=== PATIENT | female | born 1955 | race Hispanic/Latino ===

== ENCOUNTER 2018-06-26 09:30 | Inpatient (IN) | payer OTHER ==
[~2018-06-26] VITALS: Ht 160 cm; Wt 71.5 kg
[2018-06-26] MEDS ORDERED: ONDANSETRON HCL INJ 2 MG/ML VIAL IV STA (10:13)
[2018-06-26] MEDS ORDERED: SODIUM CHLORIDE 0.9% 1000ML 1,000 ML IV SCH (10:15)
[2018-06-26] MEDS ORDERED: AMLODIPINE BESYL5 MG PO (10:18)
[2018-06-26] MEDS ORDERED: BASAGLAR INSULIN SQ (10:18)
[2018-06-26] MEDS ORDERED: COLESTIPOL HCL1 GM PO ×3 (10:18→14:56)
[2018-06-26] MEDS ORDERED: LOVASTATIN20 MG PO (10:18)
[2018-06-26] MEDS ORDERED: GLIMEPIRIDE2 MG PO (10:21)
[2018-06-26] MEDS ORDERED: LOSARTAN-HCTZ1 EAC1 PO (10:21)
[2018-06-26] MEDS ORDERED: METFORMIN HCL500 MG PO (10:21)
[2018-06-26] MEDS ORDERED: LISINOPRIL10 MG PO (10:21)
[2018-06-26] MEDS ORDERED: TENORMIN50 MG PO (10:21)
[2018-06-26] MEDS ORDERED: POTASSIUM CHLORIDE 20 MEQ TAB CR PO STA (11:22)
[2018-06-26] MEDS ORDERED: ASPIRIN 325 MG TAB PO ONE (11:30)
[2018-06-26] MEDS ORDERED: ASPIRIN 81 MG CHEW TAB PO ONE (13:15)
[2018-06-26] MEDS ORDERED: IOPAMIDOL 300MG/ML 100 ML INFUS..BTL IV ONE (13:15)
[2018-06-26] MEDS ORDERED: ONDANSETRON HCL INJ 2 MG/ML VIAL IV PRN (13:15)
[2018-06-26 14:00] VITALS: BP 151/61
[2018-06-26] MEDS: ASPIRIN 325 MG TAB EC PO SCH (14:13)
[2018-06-26 14:30] VITALS: BP 151/61
[2018-06-26 16:39] LABS: BASOPHILS # (AUTO) 0.1 (0.0-0.1); BASOPHILS % 0.5 % (0.0-1.0); EOSINOPHILS # (AUTO) 0.1 (0.0-0.4); EOSINOPHILS % 0.4 % (0.0-6.0); HEMATOCRIT 34.7 % (34.2-44.1); LYMPHOCYTES # (AUTO) 2.4 (1.0-3.2); LYMPHOCYTES % 15.1 % (18.0-39.1); MEAN CORPUSCULAR HEMOGLOBIN 27.5 pg (28-32); MEAN CORPUSCULAR HGB CONC 34.6 g/dL (31-35); MEAN CORPUSCULAR VOLUME 79.4 fL (81-99); MONOCYTES % 6.5 % (4.4-11.3); NEUTROPHILS # (AUTO) 12.3 (2.1-6.9); NEUTROPHILS % 77.1 % (38.7-80.0); PLATELET COUNT 418 x10e3/uL (140-360); RED BLOOD COUNT 4.37 x10e6/uL (3.6-5.1); RED CELL DISTRIBUTION WIDTH 15.6 % (11.7-14.4)
[2018-06-26 16:50] LABS: ALANINE AMINOTRANSFERASE 33 IU/L (0-55); ALKALINE PHOSPHATASE 50 IU/L (40-150); ANION GAP 14.4 mmol/L (8-16); BILIRUBIN,DIRECT 0.5 mg/dL (0.0-0.5); BLOOD UREA NITROGEN 14 mg/dL (7-26); BUN/CREATININE RATIO 17 (6-25); CALCIUM 9.4 mg/dL (8.4-10.2); CARBON DIOXIDE 23 mmol/L (22-29); CHLORIDE 98 mmol/L (98-107); CREATININE, SERUM 0.82 mg/dL (0.57-1.11); EST GLOMERULAR FILTRATION RATE > 60 ML/MIN (60-); POTASSIUM 3.4 mmol/L (3.5-5.1); SODIUM 132 mmol/L (136-145)
[2018-06-26 16:55] LABS: GLUCOSE 56 mg/dL (74-118)
[2018-06-26 20:00] VITALS: BP 162/79
[2018-06-26 20:53] VITALS: BP 162/79
[2018-06-26] MEDS: SODIUM CHLORIDE 0.9% 1000ML 1,000 ML IV SCH (20:54)
[2018-06-26] MEDS: COLESTIPOL HCL 1 G TAB PO SCH (20:54)
[2018-06-26] MEDS: ATENOLOL 50 MG TAB PO SCH (20:55)
[2018-06-27] VITALS (7 sets, daily range): BP systolic 139–154; BP diastolic 59–67
[2018-06-27 02:42] LABS: CREATINE KINASE MB 3.6 ng/mL (0-5.0)
[2018-06-27 06:14] LABS: CREATINE KINASE MB 3.3 ng/mL (0-5.0)
[2018-06-27] MEDS: LOVASTATIN 20 MG PO SCH (09:00)
[2018-06-27] MEDS ORDERED: NON-FORMULARY MEDICATION (Losartan/Hydrochlorothiazide (Losartan-Hctz 100-25 Mg Tab) 1 TAB PO SCH (09:00)
[2018-06-27] MEDS ORDERED: LISINOPRIL 20 MG TAB PO SCH (09:00)
[2018-06-27] MEDS ORDERED: AMLODIPINE BESYLATE 5 MG TAB PO SCH (09:00)
[2018-06-27] MEDS ORDERED: LISINOPRIL 10 MG TAB PO SCH (09:00)
[2018-06-27] MEDS: HYDROCHLOROTHIAZIDE 25 MG TAB PO SCH (09:30)
[2018-06-27] MEDS: LOSARTAN POTASSIUM 100 MG TAB PO SCH (09:30)
[2018-06-27] MEDS: COLESTIPOL HCL 1 G TAB PO SCH ×2 (09:30→21:11)
[2018-06-27 14:38] LABS: CHOL/HDL RATIO 3.3 (3.0-3.6)
[2018-06-27 14:58] LABS: THYROID STIMULATING HORMONE 0.846 uIU/mL (0.350-4.940)
[2018-06-27] MEDS: NIFEDIPINE CR 30 MG TAB PO SCH ×2 (15:39→21:12)
--- NOTE | 2018-06-27 16:01 | History and Physical ---
PRIMARY CARE PHYSICIAN: Dr. Garcia at [facility]. CHIEF COMPLAINT: Dizziness and racing heart. HISTORY OF PRESENT ILLNESS: This is a 63-year-old woman with a history of Crohn's disease and chronic diarrhea, now developing dizziness and racing heart with left arm tingling, prompting her to come to the hospital. Here she was found to have elevated troponin. She is admitted for further evaluation and management. PAST MEDICAL HISTORY: Hypertension, diabetes mellitus, hyperlipidemia, heart murmur, cigarette use and Crohn's disease. PAST SURGICAL HISTORY: None. ALLERGIES: PER THE ELECTRONIC MEDICAL RECORDS. FAMILY HISTORY/SOCIAL HISTORY: Patient is single. No alcohol or illicits. She was smoking 1 pack of cigarettes per day, now down to half a pack per day. MEDICATIONS: Per the electronic medical records. Medications reviewed. REVIEW OF SYSTEMS: Denies any dizziness, fever, chills, sweats, nausea, vomiting, diarrhea, leg pain, back pain, headache, blurred vision. VITAL SIGNS: Have been reviewed. PHYSICAL EXAMINATION GENERAL APPEARANCE: A tired-appearing woman resting in bed. HEENT: Anicteric. Pupils responsive to light. No oral lesions. CARDIOVASCULAR: Normal S1/S2. She has a 3/6 systolic murmur. LUNGS: Moderate breath sounds. ABDOMEN: Soft, nontender, nondistended. EXTREMITIES: No edema or calf tenderness. NEUROLOGICALLY: Alert and oriented x3. Moving all extremities. LABS: Reviewed. ASSESSMENT: She is a 63-year-old woman. 1. Elevated troponin. 1. Arm numbness. 2. Heart murmur. 3. Abnormal electrocardiogram with T-wave flattening and inversion in the precordial leads. 4. Dehydration. 5. Diarrhea. 6. Overweight state. 7. Diabetes mellitus type 2. 8. Hypertension. 9. Hyperlipidemia. 10. Crohn's disease. PLAN 1. Obtain 2-D echocardiogram. 2. Cardiology consultation. 3. Obtain TSH for tachycardia. 4. Obtain hemoglobin A1c and lipid panel. 5. Once cleared by Cardiology, patient can follow up with her GI doctor at [facility] for continuing management of her Crohn's disease. 6. Start prophylaxis with Pepcid and Lovenox. 7. Follow up cardiology recommendations. Job#: [id number] EV
[2018-06-27] MEDS ORDERED: CLOPIDOGREL BISULFATE 75 MG TAB PO ONE (16:30)
[2018-06-27] MEDS ORDERED: ENOXAPARIN SOD INJ 40 MG/0.4 ML SYR SC SCH (17:00)
[2018-06-27] MEDS: FAMOTIDINE 20 MG TAB PO SCH (17:26)
--- NOTE | 2018-06-27 20:44 | Consultation ---
DATE OF CONSULTATION: June 27, 2018 CARDIAC CONSULTATION REASON FOR THE CONSULTATION: Chest pressure, chest tightness, left arm pain, elevated troponin. HISTORY: This is a 63-year-old lady, hypertensive, diabetic, hypercholesterolemic, smoker. Patient for the last 2 to 3 months is having diarrhea. She had colonoscopy and workup and she was diagnosed with inflammatory bowel disease, Crohn or may be ulcerative colitis. She came today because she felt her heart racing and with that she had chest tightness and left arm pain. Initially, her troponin was elevated at 0.77, second troponin 0.456, third troponin of 0.394. The patient is admitted for further management. Her EKG showed nonspecific ST changes laterally and LVH. Currently, she is doing well. Patient does have easy fatigability, shortness of breath on exertion. She attributed all her symptoms to her GI problem for the last 2 to 3 months. She had colonoscopy and workup. There is no orthopnea, no paroxysmal nocturnal dyspnea, no syncope, no presyncope, no prior tachycardia or any other health problem, no recent trouble, no signs of deep venous thrombosis, and no hormone use. REVIEW OF SYSTEMS: Extensive to all systems, only pertinent positive and negative ones will be mentioned. CARDIAC: As per above. PULMONARY: No cough, no hemoptysis. GI: Chronic diarrhea. No hematemesis, no melena, but chronic diarrhea. : No hematuria, no dysuria. NEUROMUSCULAR: No aches, no pains. GENERAL: No fever, no chills. ENDOCRINE: Patient is diabetic. SOCIAL HISTORY: She is single. Unfortunately she smokes a pack a day. 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 HOME MEDICATIONS: Includes: 1. Amlodipine 5 mg a day. 2. Lovastatin 20 mg a day. 3. Colestipol 1 g 5 per day, 2 in the morning, 3 in the afternoon. 4. Losartan/hydrochlorothiazide 100 and 25 one tablet a day. 5. Atenolol 25 mg a day. 6. Metformin 1000 mg twice a day. 7. Glimepiride 1 mg a day. 8. Lisinopril 40 mg twice a day. ALLERGIES: ATORVASTATIN, PATIENT IS INTOLERANT TO ATORVASTATIN. PAST MEDICAL HISTORY: 1. Hypertension. 2. Diabetes mellitus. Of note, her diabetes is at least for 15 years. 3. Hyperlipidemia. 4. Smoker. 5. Diarrhea with diagnosis of inflammatory bowel disease, possible Crohn, possible ulcerative colitis. FAMILY HISTORY: Father was alcoholic, of alcohol complication at age 65. Mother in her 70s with kidney disease. She had diabetes mellitus for short period. Four brothers, all are diabetic, 2 of them already had PCI procedure in their 60s. Five sisters. No children. PHYSICAL EXAMINATION: VITAL SIGNS: Height of 5 feet 3 inches, weight of 154 pounds, blood pressure 150/70, heart rate of 70, respiratory rate of 18. HEENT: Pupils are equal and reactive. NECK: No elevation of jugular venous pulsation. No bruit. CHEST: Clear to auscultation and percussion. HEART: PMI, fifth left intercostal space. Normal first and second heart sounds. ABDOMEN: Soft with no organomegaly. No abdominal bruits. EXTREMITIES: No cyanosis. No clubbing. No edema. NEUROLOGIC: Nonfocal. LAB DATA: Sodium of 132, potassium 3.4, BUN of 14, creatinine of 0.8. White blood cell count of 15.9, hemoglobin of 12, hematocrit 35%, platelet count of 418,000. TSH of 0.85. Triglycerides of 118, cholesterol of 129, HDL of 39, LDL of 66. CK, CK-MB are normal. Troponin 0.77, 0.456, 0.394. EKG as described above. IMPRESSION: 1. Troponin leak in setting of palpitation, most likely probably supraventricular tachycardia secondary to hypokalemia and with that patient had troponin leak, which will indicate severe triple-vessel coronary artery disease in a patient who is diabetic for many years, heavy smoker for many years, and is hypertensive, hyperlipidemic. 2. Severe hypertension. 3. Diabetes mellitus. 4. Hypertension. 5. Hypercholesterolemia. PLAN: Patient's stool will be checked for blood. Patient will be loaded with Plavix. Patient already most likely failed her stress test because of the leak of troponin in the setting of short-lived probably arrhythmia with symptomatic pain in the arm and in the chest. Patient options are discussed. Patient to make a decision tomorrow. Definitely, will load her with Plavix. Will continue antiplatelet agent. Will continue diabetes medication. Will continue beta umesh. Will continue ARB. Patient on appropriate medical therapy, planned to be address her problem. Questions are answered. Job#: [id number]
[2018-06-27] MEDS: ATENOLOL 50 MG TAB PO SCH (21:12)
[2018-06-27] MEDS: SODIUM CHLORIDE 0.9% 1000ML 1,000 ML IV SCH (21:20)
[2018-06-28] VITALS (8 sets, daily range): BP systolic 111–140; BP diastolic 47–65
[2018-06-28] MEDS: SODIUM CHLORIDE 0.9% 1000ML 1,000 ML IV SCH (05:50)
[2018-06-28 05:58] LABS: BASOPHILS # (AUTO) 0.1 (0.0-0.1); BASOPHILS % 0.4 % (0.0-1.0); EOSINOPHILS # (AUTO) 0.2 (0.0-0.4); EOSINOPHILS % 1.5 % (0.0-6.0); HEMATOCRIT 32.3 % (34.2-44.1); HEMOGLOBIN 10.9 g/dL (12.0-16.0); LYMPHOCYTES # (AUTO) 2.5 (1.0-3.2); LYMPHOCYTES % 15.8 % (18.0-39.1); MEAN CORPUSCULAR HEMOGLOBIN 27.2 pg (28-32); MEAN CORPUSCULAR HGB CONC 33.7 g/dL (31-35); MEAN CORPUSCULAR VOLUME 80.5 fL (81-99); MONOCYTES # (AUTO) 1.2 (0.2-0.8); MONOCYTES % 7.7 % (4.4-11.3); NEUTROPHILS # (AUTO) 11.9 (2.1-6.9); NEUTROPHILS % 74.1 % (38.7-80.0); PLATELET COUNT 380 x10e3/uL (140-360); RED BLOOD COUNT 4.01 x10e6/uL (3.6-5.1); RED CELL DISTRIBUTION WIDTH 15.8 % (11.7-14.4)
[2018-06-28 06:17] LABS: ALANINE AMINOTRANSFERASE 22 IU/L (0-55); ALBUMIN 2.4 g/dL (3.5-5.0); ALBUMIN/GLOBULIN RATIO 0.7 (0.8-2.0); ALKALINE PHOSPHATASE 46 IU/L (40-150); BLOOD UREA NITROGEN 7 mg/dL (7-26); BUN/CREATININE RATIO 10 (6-25); CALCIUM 8.5 mg/dL (8.4-10.2); CARBON DIOXIDE 24 mmol/L (22-29); CHLORIDE 99 mmol/L (98-107); EST GLOMERULAR FILTRATION RATE > 60 ML/MIN (60-); GLUCOSE 87 mg/dL (74-118); SODIUM 133 mmol/L (136-145)
[2018-06-28] MEDS: LOVASTATIN 20 MG PO SCH (09:00)
[2018-06-28] MEDS: LOSARTAN POTASSIUM 100 MG TAB PO SCH (09:50)
[2018-06-28] MEDS: COLESTIPOL HCL 1 G TAB PO SCH ×2 (09:50→22:28)
[2018-06-28] MEDS: FAMOTIDINE 20 MG TAB PO SCH ×2 (09:50→17:28)
[2018-06-28] MEDS: HYDROCHLOROTHIAZIDE 25 MG TAB PO SCH (09:50)
[2018-06-28] MEDS: ASPIRIN 325 MG TAB EC PO SCH (09:50)
[2018-06-28] MEDS: NIFEDIPINE CR 30 MG TAB PO SCH (09:50)
[2018-06-28] MEDS ORDERED: POTASSIUM CHLORIDE 20MEQ/100ML 100 ML IV ONE (11:45)
[2018-06-28 12:17] LABS: FERRITIN 513.46 ng/mL (4.63-204.00)
--- NOTE | 2018-06-28 13:03 | Progress Note ---
DATE: June 28, 2018, Friday MEDICINE PROGRESS NOTE TIME OF SERVICE: 11:15 a.m. OVERNIGHT: No acute events. REVIEW OF SYSTEMS: Patient denies chest pain or shortness of breath. Patient reports intermittent nausea, diarrhea, abdominal pain and early satiety. Patient denies dizziness, fever, chills, sweats, leg pain, back pain, headache or blurry vision. OBJECTIVE VITAL SIGNS: T 97.5, P 66, respirations 18, BP is 111/52. SpO2 100% on room air. GENERAL APPEARANCE: This is a very tired-appearing middle-aged woman resting supine in bed. HEENT: Normocephalic, no sinus tenderness, PERRLA, oral mucosa dry and intact. Trachea midline without JVD. CARDIOVASCULAR: S1, S2 auscultated with a pansystolic 3/6 murmur. LUNGS: Moderate breath sounds in all novoa. ABDOMEN: Soft, slightly tender and not distended. EXTREMITIES: No edema or calf tenderness. NEUROLOGIC: No gross defects noted on examination. Moves all extremities. PSYCH: Flat affect. LABS: WBC is 16.06, H\T\H 10.9 and 32.3 respectively, platelets 180. C. diff noted negative. Stool occult blood positive. Sodium 133, potassium 3, chloride 99, CO2 ___99, gap 13, BUN 7, creatinine 0.7. MEDICATIONS 1. Procardia XL 60 mg p.o. q.12. 2. Pepcid 20 mg b.i.d. a.c. meals. 3. Hydrochlorothiazide 25 mg p.o. daily. 4. Losartan 100 mg p.o. daily. 5. Colestid 2 g a.c. breakfast daily. 6. Aspirin 325 q.a.m. 7. Atenolol 50 mg p.o. nightly. 8. Colestid 3 g nightly. 9. Lovenox 40 mg daily at 1700. 10. Normal saline at 60 mL an hour. 11. Home medications. 12. Zofran 4 mg p.r.n. q.4 h. nausea and vomiting. ASSESSMENT AND PLAN: This is a 63-year-old woman with 1. Elevated troponin/abnormal electrocardiogram with T-wave flattening and inversion in the precordial leads. A 2-D echo obtained. Cardiology is consulting, and patient verbalizes desire for left heart cath. 2. Dehydration. Continue IV fluids. 3. Diarrhea. Continue IV fluids and monitor electrolytes. Replace potassium this day. 4. Overweight state. Outpatient counseling. 5. Diabetes mellitus type 2. Hemoglobin A1c and lipid panel. Found the patient with a 5.6 A1c, 118 triglycerides and 129 cholesterol. 6. Hypertension. Controlled on current regimen. Continue to monitor. 7. Hyperlipidemia. Continue medications. 8. Crohn's disease. Patient reported colonoscopy approximately 6 weeks ago with negative findings. Possible followup with outpatient GI doctor at [facility] for management. However, patient with positive stool occult blood this day. Will obtain iron studies to determine best course of treatment prior to further GI evaluation today. 9. Prophylaxis. Pepcid and Lovenox. 10. Follow up a hemogram, iron studies, and cardiology interventions. Discussed with RN and patient, all questions answered. Dictated by: Alyssa Arana NP Job#: [id number] YANELY
[2018-06-28] MEDS: ATENOLOL 50 MG TAB PO SCH (21:25)
[2018-06-29] VITALS (7 sets, daily range): BP systolic 106–163; BP diastolic 50–69
[2018-06-29] MEDS: SODIUM CHLORIDE 0.9% 1000ML 1,000 ML IV SCH ×2 (02:49→15:40)
[2018-06-29 03:29] LABS: BILIRUBIN,URINE NEGATIVE (NEGATIVE); CLARITY,URINE CLEAR (CLEAR); COLOR,URINE YELLOW (YELLOW); KETONES,URINE TRACE (NEGATIVE); LEUKOCYTE ESTERASE ,URINE NEGATIVE (NEGATIVE); NITRITE,URINE NEGATIVE (NEGATIVE); PROTEIN,URINE DIPSTICK TRACE (NEGATIVE); URINE UROBILINOGEN 0.2 mg/dL (0.2 - 1)
[2018-06-29 03:42] LABS: RBC,URINE >50 /HPF (0-5)
[2018-06-29 03:43] LABS: BACTERIA,URINE FEW /HPF; EPITHELIAL CELLS,URINE FEW /LPF; TRANSITIONAL EPI CELLS,URINE FEW
[2018-06-29] MEDS: DICYCLOMINE HCL 20 MG TAB PO SCH ×3 (05:08→21:21)
[2018-06-29 06:01] LABS: BASOPHILS # (AUTO) 0.1 (0.0-0.1); BASOPHILS % 0.5 % (0.0-1.0); EOSINOPHILS # (AUTO) 0.3 (0.0-0.4); EOSINOPHILS % 1.8 % (0.0-6.0); HEMATOCRIT 31.3 % (34.2-44.1); HEMOGLOBIN 10.7 g/dL (12.0-16.0); LYMPHOCYTES # (AUTO) 1.8 (1.0-3.2); LYMPHOCYTES % 11.5 % (18.0-39.1); MEAN CORPUSCULAR HEMOGLOBIN 27.2 pg (28-32); MEAN CORPUSCULAR HGB CONC 34.2 g/dL (31-35); MEAN CORPUSCULAR VOLUME 79.6 fL (81-99); MONOCYTES # (AUTO) 1.2 (0.2-0.8); MONOCYTES % 7.6 % (4.4-11.3); NEUTROPHILS # (AUTO) 11.8 (2.1-6.9); NEUTROPHILS % 78.1 % (38.7-80.0); PLATELET COUNT 386 x10e3/uL (140-360); RED BLOOD COUNT 3.93 x10e6/uL (3.6-5.1); RED CELL DISTRIBUTION WIDTH 15.9 % (11.7-14.4)
[2018-06-29 06:17] LABS: ALANINE AMINOTRANSFERASE 22 IU/L (0-55); ALBUMIN 2.5 g/dL (3.5-5.0); ALBUMIN/GLOBULIN RATIO 0.7 (0.8-2.0); ALKALINE PHOSPHATASE 52 IU/L (40-150); ANION GAP 13.8 mmol/L (8-16); BLOOD UREA NITROGEN 6 mg/dL (7-26); BUN/CREATININE RATIO 10 (6-25); CALCIUM 8.4 mg/dL (8.4-10.2); CARBON DIOXIDE 21 mmol/L (22-29); CHLORIDE 101 mmol/L (98-107); CREATININE, SERUM 0.61 mg/dL (0.57-1.11); EST GLOMERULAR FILTRATION RATE > 60 ML/MIN (60-); GLUCOSE 101 mg/dL (74-118); SODIUM 133 mmol/L (136-145)
[2018-06-29 06:30] LABS: POTASSIUM 2.8 mmol/L (3.5-5.1)
--- NOTE | 2018-06-29 06:39 | Diagnostic Imaging Report ---
CHEST SINGLE (PORTABLE), Technique: CHEST SINGLE (PORTABLE) Comparison: None Clinical history: Leukocytosis DISCUSSION: Unremarkable portable appearance of the heart, mediastinum, lungs and pleural spaces. IMPRESSION: No acute abnormality Signed by: Dr Brisa Molina MD on 06/29/2018 6:36 AM
[2018-06-29] MEDS ORDERED: POTASSIUM CHLORIDE 20MEQ/100ML 100 ML IV ONE (07:00)
[2018-06-29] MEDS: FAMOTIDINE 20 MG TAB PO SCH ×2 (07:30→15:40)
[2018-06-29] MEDS ORDERED: POTASSIUM CHLORIDE 20 MEQ TAB CR PO ONE ×2 (07:30→09:10)
[2018-06-29] MEDS: COLESTIPOL HCL 1 G TAB PO SCH ×2 (07:30→21:00)
[2018-06-29] MEDS: ASPIRIN 325 MG TAB EC PO SCH (08:25)
[2018-06-29] MEDS: LOSARTAN POTASSIUM 100 MG TAB PO SCH (08:25)
[2018-06-29] MEDS: HYDROCHLOROTHIAZIDE 25 MG TAB PO SCH (08:26)
[2018-06-29] MEDS: LOVASTATIN 20 MG PO SCH (08:26)
[2018-06-29] MEDS: AMLODIPINE BESYLATE 5 MG TAB PO SCH (08:26)
[2018-06-29] MEDS ORDERED: POTASSIUM CHLORIDE 20MEQ/100ML 200 ML IV ONE (09:00)
[2018-06-29] MEDS ORDERED: HEPARIN SOD/SOD CHLORIDE 0 ML ONE (09:22)
[2018-06-29] MEDS ORDERED: SODIUM CHLORIDE 0.9% 1000ML 1,000 ML ONE (09:22)
[2018-06-29] MEDS ORDERED: LIDOCAINE HCL 2% LOCAL 20 ML VIAL ONE (09:22)
[2018-06-29] MEDS ORDERED: FENTANYL CITRATE/PF 100MCG/2 ML INJ ONE (09:22)
[2018-06-29] MEDS ORDERED: MIDAZOLAM HCL 2 MG/2 ML VIAL ONE (09:22)
[2018-06-29] MEDS ORDERED: IOPAMIDOL 370 MG/ML 200 ML INFUS..BTL INJ ONE (09:22)
[2018-06-29 11:49] LABS: C DIFFICILE TOXIN A&B AMP PROB NEGATIVE (NEGATIVE); WBC,FECAL (FECAL LACTOFERRIN) POSITIVE (NEGATIVE)
--- NOTE | 2018-06-29 14:13 | Progress Note ---
DATE: June 29, 2018 TIME: 1315. OVERNIGHT: No acute events. Patient with abrupt onset of hematuria this a.m. REVIEW OF SYSTEMS: The patient denies chest pain or shortness of breath. Continues with report of intermittent nausea and diarrhea with abdominal pain and early satiety. Patient denies dizziness, fever, chills, sweats, leg pain, back pain, otherwise headache or blurry vision. VITAL SIGNS: T 95.9, P 79, respiratory rate 18, BP 106/50 this a.m. prior to medications. SpO2 99% on room air. PHYSICAL EXAMINATION GENERAL APPEARANCE: This very tired appearing elderly female, lying supine in bed. HEENT: Normocephalic without sinus tenderness. PERRLA with moist and intact oral mucosa. Trachea midline without JVD. CV: S1, S2 auscultated with pansystolic 3/6 murmur. LUNGS: Moderate breath sounds in all novoa. ABDOMEN: Soft, slightly tender and not distended. EXTREMITIES: No edema or calf tenderness. NEUROLOGIC: No gross defects noted on examination. Moves all extremities. PSYCH: Flat affect. LABS: Na 133, K 2.8, Cl 101, CO2 21, gap 13, BUN 6, creatinine 0.61. WBC this a.m. 15.17. H and H stable at 10.7 and 31.3, platelet count remains elevated at 386. MEDICATIONS 1. KCl replacement this day. 2. NS at 60 mL per hour IV. 3. Colestid 3 grams at bedtime. 4. Atenolol 50 mg p.o. at bedtime. 5. Bentyl 20 mg p.o. q.8 hours. 6. Norvasc 5 mg p.o. daily. 7. Pepcid 20 mg b.i.d. a.c. 8. Hydrochlorothiazide 25 mg p.o. daily. 9. Losartan 100 mg p.o. daily. 10. Unidentified home medication once daily. 11. Colestid 2 grams a.c. breakfast. 12. Zofran p.r.n. ASSESSMENT AND PLAN: This is a 63-year-old woman with 1. Elevated troponin/abnormal electrocardiogram with T-wave flattening and inversion in the precordial leads. Two-dimensional echocardiogram obtained shortly after admission. Cardiology and diagnostic intervention this a.m. deferred due to abrupt onset of hematuria. 2. Dehydration. Continue intravenous fluids. 3. Diarrhea. Continue intravenous fluids. Monitor electrolytes. Potassium replaced this day. Follow up in the a.m. 4. Overweight. Stay in outpatient counseling. 5. Diabetes mellitus type 2. Hemoglobin and lipid panel reviewed previously. 6. Hypertension, controlled on current regimen. 7. Hyperlipidemia. Continue medications. 8. Crohn disease. Patient reported colonoscopy approximately 6 weeks ago with negative findings and possible followup with outpatient gastroenterology doctor at [facility] for management; however, patient with positive stool occult blood this day. Patient found with low iron, total iron-binding capacity, and elevated ferritin. Gastroenterology consult initiated overnight. Recommendations pending. Prophylaxis Pepcid and Lovenox. DISPOSITION: Left heart cath indefinitely deferred per cardiovascular services concerning abrupt onset of hematuria this day. Will follow up values in the morning and anticipate discharge with GI recommendations. Dictated by Alyssa Arana NP Job#: [id number] JUAN C
[2018-06-29] MEDS: ATENOLOL 50 MG TAB PO SCH (21:21)
[2018-06-30] VITALS (8 sets, daily range): BP systolic 130–173; BP diastolic 58–76
[2018-06-30 05:21] LABS: BASOPHILS # (AUTO) 0.1 (0.0-0.1); BASOPHILS % 0.5 % (0.0-1.0); EOSINOPHILS # (AUTO) 0.2 (0.0-0.4); EOSINOPHILS % 1.7 % (0.0-6.0); HEMATOCRIT 29.8 % (34.2-44.1); HEMOGLOBIN 10.2 g/dL (12.0-16.0); LYMPHOCYTES # (AUTO) 2.4 (1.0-3.2); LYMPHOCYTES % 18.3 % (18.0-39.1); MEAN CORPUSCULAR HEMOGLOBIN 27.3 pg (28-32); MEAN CORPUSCULAR HGB CONC 34.2 g/dL (31-35); MEAN CORPUSCULAR VOLUME 79.7 fL (81-99); MONOCYTES # (AUTO) 1.3 (0.2-0.8); MONOCYTES % 9.8 % (4.4-11.3); NEUTROPHILS # (AUTO) 9.2 (2.1-6.9); NEUTROPHILS % 69.1 % (38.7-80.0); PLATELET COUNT 376 x10e3/uL (140-360); RED BLOOD COUNT 3.74 x10e6/uL (3.6-5.1); RED CELL DISTRIBUTION WIDTH 16.2 % (11.7-14.4)
[2018-06-30] MEDS: DICYCLOMINE HCL 20 MG TAB PO SCH ×3 (05:32→22:21)
[2018-06-30 05:48] LABS: ALANINE AMINOTRANSFERASE 21 IU/L (0-55); ALBUMIN 2.5 g/dL (3.5-5.0); ALBUMIN/GLOBULIN RATIO 0.8 (0.8-2.0); ALKALINE PHOSPHATASE 56 IU/L (40-150); ANION GAP 13.3 mmol/L (8-16); BLOOD UREA NITROGEN 6 mg/dL (7-26); BUN/CREATININE RATIO 9 (6-25); CALCIUM 8.5 mg/dL (8.4-10.2); CARBON DIOXIDE 22 mmol/L (22-29); CHLORIDE 102 mmol/L (98-107); CREATININE, SERUM 0.68 mg/dL (0.57-1.11); EST GLOMERULAR FILTRATION RATE > 60 ML/MIN (60-); GLUCOSE 92 mg/dL (74-118); POTASSIUM 3.3 mmol/L (3.5-5.1); SODIUM 134 mmol/L (136-145)
[2018-06-30] MEDS: FAMOTIDINE 20 MG TAB PO SCH ×2 (07:30→16:48)
[2018-06-30] MEDS: COLESTIPOL HCL 1 G TAB PO SCH ×2 (07:30→22:22)
[2018-06-30] MEDS: LOSARTAN POTASSIUM 100 MG TAB PO SCH (07:43)
[2018-06-30] MEDS: AMLODIPINE BESYLATE 5 MG TAB PO SCH (07:43)
[2018-06-30] MEDS: SODIUM CHLORIDE 0.9% 1000ML 1,000 ML IV SCH (07:43)
[2018-06-30] MEDS: LOVASTATIN 20 MG PO SCH (07:43)
[2018-06-30] MEDS: HYDROCHLOROTHIAZIDE 25 MG TAB PO SCH (07:43)
--- NOTE | 2018-06-30 07:43 | Progress Note ---
DATE: June 30, 2018 TIME: 7:14 a.m. OVERNIGHT: Had rectal bleeding. REVIEW OF SYSTEMS: Denies any dizziness, chest pain, shortness of breath, fever, chills, sweats, nausea or vomiting. Now leg pain. VITAL SIGNS: Reviewed. PHYSICAL EXAMINATION GENERAL: A tired-appearing woman resting in bed. HEENT: Anicteric. CARDIOVASCULAR: Normal S1 and S2. LUNGS: Moderate breath sounds. ABDOMEN: Soft, nontender and nondistended. EXTREMITIES: No edema. SKIN: Dry. PSYCHIATRIC: Normal affect. LABS: Reviewed. MEDICATIONS: Reviewed. ASSESSMENT AND PLAN: A 63-year-old woman. 1. Elevated troponin. 2. Arm numbness. 3. Heart murmur. 4. Abnormal electrocardiogram with T-wave flattening and inversion in the precordial leads. 5. Dehydration. 6. Bloody diarrhea. 7. Overweight state. 8. Diabetes mellitus, type 2. 9. Hypertension. 10. Hyperlipidemia. 11. Acute Crohn's exacerbation. PLAN 1. Heart catheterization has been canceled. Will continue medical management. 2. Followup endoscopy today for rectal bleeding. 3. Start the patient on steroid therapy. 4. Hemoglobin A1c was 5.6, LDL 66, and triglycerides 180. 5. Replace potassium this morning. 6. Leukocytosis, mild. Will follow. May increase after being started on steroids. 7. C. difficile testing is negative. 8. Follow up S. cerevisiae testing. 9. Follow up immunology testing. 10. Follow up cultures. 11. Patient remains on beta umesh and calcium channel umesh, but aspirin has been discontinued. Job#: [id number]
[2018-06-30] MEDS: METHYLPREDNISOLONE SOD SUCC 40 MG/ML VIAL IV SCH ×2 (08:21→22:20)
[2018-06-30] MEDS ORDERED: PROPOFOL IV EMULSION 10 MG/ML 50 ML VIAL ONE (13:59)
[2018-06-30] MEDS ORDERED: HYOSCYAMINE SULFATE 0.5 MG/ML AMP ONE (13:59)
--- NOTE | 2018-06-30 14:39 | Operative Report ---
DATE OF PROCEDURE: June 30, 2018 REFERRING PHYSICIAN: Dr. Cassy Virk PROCEDURE PERFORMED: Esophagogastroduodenoscopy with biopsies. INDICATIONS FOR EGD: Upper abdominal pain, nausea. MEDICATION: Patient was done under MAC. Please see anesthesiologist's note. PROCEDURE: With the patient in the left lateral decubitus position, the flexible fiberoptic Olympus gastroscope was introduced into the esophagus under direct visualization without any difficulty. There was some patchy erythema noted in the distal esophagus. The scope was then advanced with ease into the stomach, and the mucosa overlying the body revealed some diffuse friability and some patchy nodularity. Multiple biopsies were obtained. There was a focal raised area in the proximal antrum along the greater curvature and that was biopsied. Also the antral mucosa was atrophic, and biopsies were obtained. Several large ulcers were noted up to 2 cm in size, antrum, and biopsies were obtained. The pylorus was of normal contour and shape. It was intubated with ease, and the scope was advanced all the way to the 2nd portion of the duodenum. The scope was then withdrawn slowly, and there were some scalloped folds noted in the proximal duodenum, and biopsies were obtained to rule out sprue. The mucosa overlying the duodenal bulb grossly appeared to be within normal limits. The scope was then withdrawn back into the stomach and retroflexed, and the cardia appeared to be within normal limits. Similar inflammatory findings were noted in the fundus. The scope was then straightened out. The stomach was decompressed. The scope was subsequently withdrawn. Patient tolerated the procedure well. IMPRESSION 1. Distal esophagitis. 2. Gastritis, body, biopsied. 3. Focal nodularity, proximal antrum greater curvature, biopsied. 4. Rule out atrophic gastritis, antrum. 5. Gastric ulcers up to 2 cm in size, biopsies obtained. 6. Rule out sprue. PLAN: Follow up histology. Continue current therapy. Add Carafate 1 gram p.o. a.c. t.i.d. and nightly. Patient will need a followup EGD if all biopsies are benign in 2 months to re-evaluate the stomach and obtain additional biopsies if necessary. Job#: [id number] cc:CASSY VIRK MD
[2018-06-30] MEDS ORDERED: MIDAZOLAM HCL 2 MG/2 ML VIAL ONE (15:53)
[2018-06-30] MEDS: SUCRALFATE 1 GM TAB PO SCH ×2 (16:48→22:20)
[2018-06-30] MEDS: ATENOLOL 50 MG TAB PO SCH (22:21)
[2018-06-30] MEDS ORDERED: PANTOPRAZOLE 40 MG 10ML VIAL IV STA (23:38)
[2018-07-01] MEDS: SODIUM CHLORIDE 0.9% 1000ML 1,000 ML IV SCH (00:30)
[2018-07-01 00:39] VITALS: BP 156/69
[2018-07-01] MEDS: DICYCLOMINE HCL 20 MG TAB PO SCH (05:29)
[2018-07-01 05:55] VITALS: BP 140/62
[2018-07-01 07:10] LABS: HEMATOCRIT 31.6 % (34.2-44.1); HEMOGLOBIN 10.7 g/dL (12.0-16.0)
[2018-07-01] MEDS ORDERED: PANTOPRAZOLE SO40 MG PO (07:19)
[2018-07-01] MEDS ORDERED: CARAFATE1 GM PO (07:19)
[2018-07-01] MEDS ORDERED: DICYCLOMINE HCL20 MG PO (07:19)
[2018-07-01] MEDS ORDERED: PREDNISONE20 MG PO (07:19)
--- NOTE | 2018-07-01 07:43 | Discharge Summary ---
PRINCIPAL DIAGNOSES 1. Distal esophagitis. 2. Gastritis. 3. Focal nodular proximal antrum of the greater curvature. 4. Possible atrophic gastritis of the antrum. 5. Gastric ulcers up to 2 cm in size. 6. Elevated troponins. 7. Heart murmur. 8. Abnormal electrocardiogram with T-wave flattening and inversion in the precordial leads. 9. Bloody diarrhea with acute Crohn exacerbation. 10. Diabetes mellitus, type 2. Hemoglobin A1c 5.6, LDL 66 and triglycerides 180. 11. Overweight state. 12. Dehydration. SECONDARY DIAGNOSIS: Crohn disease. CHIEF COMPLAINT: Dizziness and racing heart. HISTORY OF PRESENT ILLNESS: This is a 63-year-old woman with dizziness and racing heart. Refer to the H and P for further details. HOSPITAL COURSE: The patient was found to have elevated troponin. She had arm numbness. Heart catheterization was scheduled, but the patient had rectal bleeding. Therefore, this was held. The patient was on medical management. Aspirin and Plavix have not been utilized due to GI bleeding. The patient underwent endoscopy. EGD showed gastric ulcers and other findings as noted above. The patient on PPI b.i.d. and sucralfate. She is also on steroids for her Crohn exacerbation. The patient is doing better and has not had any bleeding in the last 24 hours. She can be discharged home as she is cleared by GI and surgery. DISCHARGE MEDICATIONS: Per electronic medical record and include pantoprazole 40 mg b.i.d., sucralfate 4 times a day and prednisone 20 mg b.i.d. CONDITION ON DISCHARGE: Stable and improved. DISCHARGE LOCATION: Home. FOLLOWUP 1. Primary care doctor in 1 week. 2. Follow up with GI specialist in 7-10 days. 3. Follow up with cardiology in 2 weeks. CASSY VIRK MD Job#: [id number] [place]
[2018-07-01] MEDS ORDERED: PANTOPRAZOLE 40 MG 10ML VIAL IV SCH (09:00)
[2018-07-01] MEDS ORDERED: IRON-VITAMIN-MINERAL CAPSULE PO SCH (09:00)
[2018-07-01 09:14] VITALS: BP 146/65
[2018-07-01 09:30] VITALS: BP 146/65
[2018-07-01] MEDS: COLESTIPOL HCL 1 G TAB PO SCH (09:55)
[2018-07-01] MEDS: SUCRALFATE 1 GM TAB PO SCH (09:55)
[2018-07-01] MEDS: FAMOTIDINE 20 MG TAB PO SCH (09:55)
[2018-07-01] MEDS: HYDROCHLOROTHIAZIDE 25 MG TAB PO SCH (09:55)
[2018-07-01] MEDS: METHYLPREDNISOLONE SOD SUCC 40 MG/ML VIAL IV SCH (09:55)
[2018-07-01] MEDS ORDERED: ATORVASTATIN 10 MG TAB PO SCH (21:00)
[2018-07-02] MEDS ORDERED: LOVASTATIN 20 MG PO SCH (09:00)
[2018-07-03 11:57] LABS: ENDOMYSIAL ANTIBODIES, IGA Negative
== END 2018-07-01 11:25 | disposition home or self-care (01) | DRG 387 ==
LOC: FSED 09:30 → ERHOLD 13:13 → MED/SURG2 14:07 → OBSVTOIN 06-29 13:17
PROVIDERS: ADMIT Internal Medicine; ATTEND Internal Medicine
PROC: 0DD78ZX Extraction of Stomach, Pylorus, Via Natural or Artificial Opening Endoscopic, Diagnostic (ICD-10-PCS; 2018-06-30)
PROC: 0DD68ZX Extraction of Stomach, Via Natural or Artificial Opening Endoscopic, Diagnostic (ICD-10-PCS; 2018-06-30)
PROC: 0DD98ZX Extraction of Duodenum, Via Natural or Artificial Opening Endoscopic, Diagnostic (ICD-10-PCS; principal; 2018-06-30 08:00)
DX: K50.911 Crohn's disease, unspecified, with rectal bleeding (principal); R79.89 Other specified abnormal findings of blood chemistry; R20.0 Anesthesia of skin; E66.3 Overweight; Z68.27 Body mass index [BMI] 27.0-27.9, adult; E86.0 Dehydration; E78.5 Hyperlipidemia, unspecified; R01.1 Cardiac murmur, unspecified; R19.7 Diarrhea, unspecified; F17.210 Nicotine dependence, cigarettes, uncomplicated; E87.6 Hypokalemia; K20.9 Esophagitis, unspecified; K29.40 Chronic atrophic gastritis without bleeding; K25.9 Gastric ulcer, unspecified as acute or chronic, without hemorrhage or perforation
CPT/HCPCS: 36415; 43239; 71045; 71046; 74177; 80048; 80053; 80061; 80076; 81001; 81003; 82270; 82550; 82553; 82607; 82728; 82784; 82948; 83036; 83516; 83540; 83630; 83993; 84132; 84443; 84466; 84484; 85014; 85018; 85025; 85651; 86039; 86140; 86256; 86671; 86677; 87045; 87177; 87493; 88305; 88312; 93005; 93306; 99284; G0378; J1650; J1980; J2001; J2250; J2405; J2920; J3480; J7030; Q9967

== ENCOUNTER → 2018-07-13 | Outpatient (CLI) | payer OTHER ==
[~2018-07-13] MED LIST: AMLODIPINE BESYL5 MG PO; BASAGLAR INSULIN SQ; CARAFATE1 GM PO; COLESTIPOL HCL1 GM PO; DICYCLOMINE HCL20 MG PO; GLIMEPIRIDE2 MG PO; LISINOPRIL10 MG PO; LOSARTAN-HCTZ1 EAC1 PO; LOVASTATIN20 MG PO; METFORMIN HCL500 MG PO; PANTOPRAZOLE SO40 MG PO; PREDNISONE20 MG PO; SINCALIDE 3 MCG/VIAL INJ ONE; TENORMIN50 MG PO
--- NOTE | 2018-07-13 13:06 | Diagnostic Imaging Report ---
EXAM: Right Upper Quadrant Ultrasound INDICATION: \S\UPPER ABDOMEN PAIN COMPARISON: None. TECHNIQUE: Transverse and longitudinal images of the right upper abdomen were obtained. FINDINGS: Liver: Size: 14 cm in the right midclavicular line, normal Appearance: Normal echogenicity, smooth contour Mass: No focal masses Gallbladder: Stones/Sludge: Sludge present. Wall: 0.2 cm Appearance: No pericholecystic fluid or hydrops. Sonographic Herrera's Sign: Negative Bile Ducts: Intrahepatic Ducts: No dilatation Extrahepatic Ducts: Common bile duct measures 0.3 cm, no dilatation Pancreas: Visualized pancreas is unremarkable. Right Kidney: Size: 11.4 cm Echogenicity: Normal Parenchymal thickness: Normal Collecting system: No hydronephrosis Stones: 0.7 cm midpole calculus. Cyst/Mass: None Vessels: Aorta: Not well visualized. Inferior Vena Cava: Visualized portions are normal Main Portal Vein: 1 cm, normal size with hepatopetal flow. Free Fluid: No ascites or pleural effusion IMPRESSION: Gallbladder sludge. No evidence of cholecystitis. Right renal subcentimeter nonobstructive calculus. Signed by: Dr. Wayne Ordaz MD on 07/13/2018 1:03 PM
--- NOTE | 2018-07-14 12:20 | Diagnostic Imaging Report ---
Hepatobiliary Scan with Gallbladder Ejection Fraction Clinical information: 63 F with upper abdominal pain Technique: Following intravenous administration of 6.5 millicuries of Tc-99m mebrofenin, dynamic images of the abdomen in the anterior projection were obtained through 60 minutes. Sincalide (CCK analog) 1.5 micrograms was administered intravenously over 30 minutes with additional imaging for determination of gallbladder ejection fraction. Discussion: Perfusion of the liver is normal. Extraction of tracer by the liver parenchyma is normal. Tracer appears promptly within the biliary tract. The gallbladder begins to fill at 18 minutes post injection of tracer and fills adequately. Tracer is seen in the small bowel by 36 minutes. There is no contractile response by the gallbladder to the pharmacologic dose of sincalide. No emptying of the gallbladder occurs during the 30 minute infusion. Impression: 1. Filling of the gallbladder excludes acute cystic duct obstruction/acute cholecystitis. 2. The gallbladder ejection fraction is undefined as there is no emptying of the gallbladder during the infusion of sincalide. This absence of a contractile response to sincalide supports the clinical diagnosis of chronic cholecystitis/gallbladder dyskinesia. Signed by: Dr. Niki Briones M.D. on 07/14/2018 12:16 PM
== END ==
LOC: US 11:09
PROVIDERS: ATTEND Internal Medicine Gastroenterology
DX: R10.10 Upper abdominal pain, unspecified (principal)
CPT/HCPCS: 76705; 78227; A9537; J2805

== ENCOUNTER 2018-09-15 20:49 | Inpatient (IN) | payer OTHER ==
[~2018-09-15] VITALS: Ht 160 cm; Wt 70.0 kg
[~2018-09-15 20:49] MED LIST changes: -SINCALIDE 3 MCG/VIAL INJ ONE
--- OUTSIDE RECORDS SUMMARY | 2018-09-15 20:52 | XMS REPORT | Clinical Summary ---
Author Author [facility] Address Unknown Phone Unavailable Care Team Providers Care Psychology Professor Name Role Phone PCP Unavailable Allergies Not on File Current Medications Not on file Active Problems Not on file Encounters Date Type Specialty Care Team Description 08/12/2018 Clinical Corporate Wellness Support after 09/14/2017 Immunizations Name Dates Previously Given Next Due FLUCELVAX QUAD PF (0.5mL 08/12/2018 syringe) Social History Tobacco Use Types Packs/Day Years Used Date Never Assessed Sex Assigned at Date Recorded Not on file Last Filed Vital Signs Not on file Plan of Treatment Health Maintenance Due Date Last Done Comments CERVICAL CANCER SCREENING 1978 BREAST CANCER SCREENING 2007 SHINGRIX VACCINE (#1) 2007 COLON CANCER SCREENING 05/15/2028 05/15/2018 ZOSTER VACCINE Completed 03/05/2017 INFLUENZA VACCINE Completed 08/12/2018, 09/11/2015 Results Not on fileafter 09/14/2017 Insurance Payer Benefit Subscriber ID Type Phone Address Plan / Group [facility]/PPO THCARE CHOICE/[place] + [place] [address]
--- OUTSIDE RECORDS SUMMARY | 2018-09-15 20:52 | XMS REPORT ---
Author Author [facility] Address Unknown Phone Unavailable Care Team Providers Care Diploma Dental Assistant Name Role Phone DENNIS OKEEFE Unavailable Unavailable CASSY VIRK Unavailable Unavailable Problems This patient has no known problems. Allergies, Adverse Reactions, Alerts This patient has no known allergies or adverse reactions. Medications This patient has no known medications. Results Test Description Test Time Test Comments Text Results Atomic Results Result Comments HEPTOBILIARY W PHARM 2018-07-14 12:13:00 [place] [address] Patient Name: DORIAN SCHREIBER MR #: [id number] : 1955 Age/Sex: 63/F Req #: [id number] Adm Physician: Ordered by: DENNIS OKEEFE MD Report #: [id number] Location: US Room/Bed: Procedure: [id number] NM/HEPTOBILIARY W PHARM Exam Date: 07/13/18 Exam Time: 1215 REPORT STATUS: Signed Hepatobiliary Scan with Gallbladder Ejection Fraction Clinical information: 63 F with upper abdominal pain Technique: Following intravenous administration of 6.5 millicuries of Tc-99m mebrofenin, dynamic images of the abdomen in the anterior projection were obtained through 60 minutes. Sincalide (CCK analog) 1.5 micrograms was administered intravenously over 30 minutes with additional imaging for determination of gallbladder ejection fraction. Discussion: Perfusion of the liver is normal. Extraction of tracer by the liver parenchyma is normal. Tracer appears promptly within the biliary tract. The gallbladder begins to fill at 18 minutes post injection of tracer and fills adequately. Tracer is seen in the small bowel by 36 minutes. There is no contractile response by the gallbladder to the pharmacologic dose of sincalide. No emptying of the gallbladder occurs during the 30 minute infusion. Impression: 1. Filling of the gallbladder excludes acute cystic duct obstruction/acute ch olecystitis. 2. The gallbladder ejection fraction is undefined as there is no emptying of the gallbladder during the infusion of sincalide. This absence of a contractile response to sincalide supports the clinical diagnosis of chronic cholecystitis/gallbladder dyskinesia. Signed by: Dr. Binu Briones M.D. on 07/14/2018 12:16 PM Dictated By: BINU BRIONES MD 1216 Transcribed By: JULIANE on 07/14/18 1216 COPY TO: DENNIS OKEEFE MD GALLBLADDER 2018-07-13 13:00:00 [place] [address] Patient Name: DORIAN SCHREIBER MR #: [id number] : 1955 Age/Sex: 63/F Req #: [id number] Adm Physician: Ordered by: DENNIS OKEEFE MD Report #: [id number] Location: Room/Bed: Procedure: [id number] US/US GALLBLADDER Exam Date: Exam Time: REPORT STATUS: Signed EXAM: Right Upper Quadrant Ultrasound INDICATION: COMPARISON: None. TECHNIQUE: Transverse and longitudinal images of the right upper abdomen were obtained. FINDINGS: Liver: Size: 14 cm in the right midclavicular line, normal Appearance: Normal echogenicity, smooth contour Mass: No focal masses Gallbladder: Stones/Sludge: Sludge present. Wall: 0.2 cm Appearance: No pericholecystic fluid or hydrops. Sonographic Herrera's Sign: Negative Bile Ducts: Intrahepatic Ducts: No dilatation Extrahepatic Ducts: Common bile duct measures 0.3 cm, no dilatation Pancreas: Visualized pancreas is unremarkable. Right Kidney: Size: 11.4 cm Echogenicity: Normal Parenchymal thickness: Normal Collecting system: No hydronephrosis Stones: 0.7 cm midpole calculus. Cyst/Mass: None Vessels: Aorta: Not well visualized. Inferior Vena Cava: Visualized portions are normal Main Portal Vein: 1 cm, normal size with hepatopetal flow. Free Fluid: No ascites or pleural effusion IMPRESSION: Gallbladder sludge. No evidence of cholecystitis. Right renal subcentimeter nonobstructive calculus. Signed by: Dr. Wayne Perez MD on 07/13/2018 1:03 PM Dictated By: WAYNE PEREZ MD 1303 Transcribed By: JULIANE on 07/13/18 1303 COPY TO: DENNIS OKEEFE MD CHEST SINGLE (PORTABLE) 2018-06-29 06:36:00 [place] [address] Patient Name: DORIAN SCHREIBER MR #: [id number] : 1955 Age/Sex: 63/F Req #: [id number] Adm Physician: CASSY VIRK MD Ordered by: DENNIS OKEEFE MD Report #: [id number] Location: MED/SURG2 Room/Bed: [facility] Procedure: [id number] DX/CHEST SINGLE (PORTABLE) Exam Date: 06/29/18 Exam Time: 0555 REPORT STATUS: Signed CHEST SINGLE (PORTABLE), Technique: CHEST SINGLE (PORTABLE) Comparison: None Clinical history: Leukocytosis DISCUSSION: Unremarkable portable appearance of the heart, mediastinum, lungs and pleural spaces. IMPRESSION: No acute abnormality Signed by: Dr Alfonso Molina MD on 06/29/2018 6:36 AM Dictated By: ALFONSO MOLINA MD 5 Transcribed By: JULIANE on 06/29/18635 COPY TO: DENNIS OKEEFE MD
[2018-09-15] MEDS ORDERED: SODIUM CHLORIDE 0.9% 1000ML 1,000 ML IV STA (21:09)
[2018-09-15] MEDS ORDERED: MORPHINE SULFATE 2 MG/ML SYR IV STA (21:09)
[2018-09-15] MEDS ORDERED: PANTOPRAZOLE 40 MG 10ML VIAL IV STA (21:09)
[2018-09-15] MEDS ORDERED: ONDANSETRON HCL INJ 2 MG/ML VIAL IV STA ×2 (21:09→23:37)
[2018-09-15 21:28] LABS: BASOPHILS # (AUTO) 0.1 (0.0-0.1); BASOPHILS % 0.9 % (0.0-1.0); EOSINOPHILS % 0.3 % (0.0-6.0); HEMATOCRIT 27.6 % (34.2-44.1); HEMOGLOBIN 9.2 g/dL (12.0-16.0); LYMPHOCYTES # (AUTO) 1.6 (1.0-3.2); LYMPHOCYTES % 10.9 % (18.0-39.1); MEAN CORPUSCULAR HEMOGLOBIN 26.7 pg (28-32); MEAN CORPUSCULAR HGB CONC 33.3 g/dL (31-35); MONOCYTES # (AUTO) 1.1 (0.2-0.8); MONOCYTES % 7.6 % (4.4-11.3); NEUTROPHILS # (AUTO) 11.9 (2.1-6.9); NEUTROPHILS % 79.9 % (38.7-80.0); PLATELET COUNT 435 x10e3/uL (140-360); RED BLOOD COUNT 3.45 x10e6/uL (3.6-5.1); RED CELL DISTRIBUTION WIDTH 17.7 % (11.7-14.4)
[2018-09-15 21:57] LABS: INR 1.16; PARTIAL THROMBOPLASTIN TIME 33.2 seconds (23.8-35.5); PROTHROMBIN TIME 15.8 seconds (11.9-14.5)
[2018-09-15 22:10] LABS: ALANINE AMINOTRANSFERASE 13 IU/L (0-55); ALBUMIN/GLOBULIN RATIO 0.8 (0.8-2.0); ALKALINE PHOSPHATASE 76 IU/L (40-150); ANION GAP 16.6 mmol/L (8-16); BLOOD UREA NITROGEN 12 mg/dL (7-26); BUN/CREATININE RATIO 14 (6-25); CALCIUM 8.9 mg/dL (8.4-10.2); CARBON DIOXIDE 23 mmol/L (22-29); CHLORIDE 95 mmol/L (98-107); CREATINE KINASE 32 IU/L (29-168); CREATININE, SERUM 0.87 mg/dL (0.57-1.11); EST GLOMERULAR FILTRATION RATE > 60 ML/MIN (60-); GLUCOSE 158 mg/dL (74-118); LIPASE 56 U/L (8-78); SODIUM 132 mmol/L (136-145)
[2018-09-15 22:12] LABS: POTASSIUM 2.6 mmol/L (3.5-5.1)
[2018-09-15 22:30] LABS: CLARITY,URINE HAZY (CLEAR); COLOR,URINE YELLOW (YELLOW); LEUKOCYTE ESTERASE ,URINE 1+ (NEGATIVE); NITRITE,URINE NEGATIVE (NEGATIVE); PROTEIN,URINE DIPSTICK TRACE (NEGATIVE)
[2018-09-15 22:31] LABS: BILIRUBIN,URINE NEGATIVE (NEGATIVE); KETONES,URINE TRACE (NEGATIVE); URINE UROBILINOGEN 0.2 mg/dL (0.2 - 1)
[2018-09-15 22:38] LABS: BACTERIA,URINE MODERATE /HPF; EPITHELIAL CELLS,URINE MODERATE /LPF
[2018-09-15 22:39] LABS: CALCIUM OXALATE CRYSTALS,UR FEW (FEW); MUCUS,URINE FEW (RARE)
[2018-09-15] MEDS ORDERED: HYDROMORPHONE 1MG/1ML INJ IV STA (23:37)
[2018-09-15] MEDS ORDERED: MAGNESIUM SULFATE 2GM/50ML 50 ML IV ONE (23:45)
[2018-09-15] MEDS ORDERED: KCL 20MEQ/.9 SOD CHL 1,000 ML IV ONE (23:45)
[2018-09-16] VITALS (44 sets, daily range): BP systolic 97–148; BP diastolic 35–70
--- NOTE | 2018-09-16 00:06 | Diagnostic Imaging Report ---
CHEST SINGLE (PORTABLE), 09/15/2018 9:09 PM Technique: CHEST SINGLE (PORTABLE) Comparison: 06/29/2018. Clinical history: Abdominal pain Findings: Stable appearance of the heart and mediastinal silhouette, lungs, and pleural spaces. Impression: 1. Lines/Tubes: None 2. No acute abnormality. Signed by: Dr Brisa Molina MD on 09/16/2018 12:02 AM
--- NOTE | 2018-09-16 00:16 | Diagnostic Imaging Report ---
EXAM: CT ABDOMEN/PELVIS W DATE: 09/15/2018 9:09 PM INDICATION: Right lower quadrant abdominal pain COMPARISON: None TECHNIQUE: The abdomen and pelvis were scanned using a multidetector helical scanner. Coronal and sagittal reformations were obtained. CT low dose techniques were utilized, as applicable. IV Contrast: 100 ml Isovue 300/370 FINDINGS: LOWER THORAX: No consolidations LIVER/BILIARY: Hepatic steatosis. No masses or ductal dilation. Portal venous gas. GALLBLADDER: No stones. Trace nonspecific pericholecystic fluid SPLEEN: Spleen is small and heterogeneous in appearance with peripheral areas of hyperenhancement or perfusional change. PANCREAS: Unremarkable ADRENALS: No nodules KIDNEYS: No suspicious renal masses. No hydronephrosis. GI TRACT: There is hypoenhancement of a long segment of distal small bowel in the right lower abdomen with pneumatosis and venous gas. VESSELS: Severe atherosclerotic changes throughout the aorta and branch vessels. Severe narrowing and/or occlusion of the celiac and SMA origins, but patent distally PERITONEUM/RETROPERITONEUM: No free air or fluid LYMPH NODES: No lymphadenopathy REPRODUCTIVE ORGANS/BLADDER: There is a 10 cm calcified dominant fibroid. Nonspecific 3.3 cm simple appearing left adnexal cyst. BONES: Degenerative changes, worse at L5-S1.. IMPRESSION: 1. Ischemic distal small bowel in the lower abdomen with hypoenhancement, pneumatosis, and portal venous gas. 2. Severe atherosclerotic changes with narrowing/occlusion of the celiac and SMA origins, but patent distally. Discussed with Physician: LEW ANDINO MD at 12:15 AM on 09/16/2018. Signed by: Dr Brisa Molina MD on 09/16/2018 12:22 AM
[2018-09-16] MEDS ORDERED: HYDROMORPHONE 2MG/ML 2 MG/ML ML ONE (00:31)
[2018-09-16] MEDS ORDERED: HYDROMORPHONE 1MG/1ML INJ IV STA (01:10)
[2018-09-16] MEDS ORDERED: ONDANSETRON HCL INJ 2 MG/ML VIAL IV PRN (01:30)
[2018-09-16] MEDS ORDERED: KCL 20MEQ/.9 SOD CHL 1,000 ML IV ONE ×3 (01:30→03:30)
[2018-09-16] MEDS ORDERED: HYDROMORPHONE 2MG/ML 2 MG/ML ML IV PRN (01:30)
[2018-09-16] MEDS ORDERED: IOPAMIDOL 370 MG/ML 200 ML INFUS..BTL INJ ONE (01:31)
[2018-09-16] MEDS ORDERED: SODIUM CHLORIDE 0.9% 50ML 50 ML ONE (01:31)
--- OUTSIDE RECORDS SUMMARY | 2018-09-16 01:35 | XMS REPORT | Clinical Summary ---
Author Author [facility] Address Unknown Phone Unavailable Care Team Providers Care Mail Courier Name Role Phone PCP Unavailable Allergies Not on File Current Medications Not on file Active Problems Not on file Encounters Date Type Specialty Care Team Description 08/12/2018 Clinical Corporate Wellness Support after 09/15/2017 Immunizations Name Dates Previously Given Next Due [...] Completed 08/12/2018, 09/11/2015 Results Not on fileafter 09/15/2017 Insurance Payer Benefit Subscriber ID Type Phone Address Plan / Group [facility] H[facility]/PPO THCARE CHOICE/[place] [address]
[2018-09-16] MEDS ORDERED: POTASSIUM CHLORIDE 20MEQ/100ML 100 ML ONE (02:24)
[2018-09-16] MEDS ORDERED: POTASSIUM CHLORIDE 20MEQ/100ML 100 ML IV ONE (02:30)
[2018-09-16] MEDS: PIPER-TAZ 3.375 GM 50 ML IV SCH ×5 (02:30→23:17)
[2018-09-16] MEDS: METRONIDAZOLE 500MG/NS 100ML 100 ML IV SCH ×5 (02:39→23:58)
--- OUTSIDE RECORDS SUMMARY | 2018-09-16 03:29 | XMS REPORT | Clinical Summary ---
Author Author [facility] Address Unknown Phone Unavailable Care Team Providers Care Sketcher Name Role Phone PCP Unavailable Allergies Not [...] Plan / Group [facility] H[facility]/PPO THCARE CHOICE/[place] [address]
[2018-09-16] MEDS ORDERED: MAGNESIUM SULFATE 2GM/50ML 50 ML IV ONE (04:00)
[2018-09-16] MEDS: SODIUM CHLORIDE 0.9% 1000ML 1,000 ML IV SCH ×3 (05:43→21:42)
[2018-09-16] MEDS: SODIUM CHLORIDE 0.9% 250ML IRRIG IR SCH ×5 (05:45→21:42)
[2018-09-16] MEDS ORDERED: ACETAMINOPHEN 1000 MG/100 ML IV PRN (05:45)
[2018-09-16] MEDS: PANTOPRAZOLE 40 MG 10ML VIAL IV SCH (05:45)
[2018-09-16] MEDS: INSULIN REGULAR, HUMAN 100 UNIT/1 ML 3ML VIAL SQ SCH ×3 (06:00→18:00)
[2018-09-16] MEDS ORDERED: MEPERIDINE HCL INJ 50 MG/ML INJ ONE (06:05)
--- NOTE | 2018-09-16 06:32 | Operative Report ---
DATE OF PROCEDURE: September 16, 2018 PREOPERATIVE DIAGNOSIS: Acute surgical abdomen, rule out ischemic bowel. POSTOPERATIVE DIAGNOSES 1. Acute surgical abdomen. 2. Ischemic terminal ileum and right colon. 3. Acalculous cholecystitis. OPERATIONS PERFORMED 1. Exploratory laparotomy. 2. Right colectomy with resection of terminal ileum. 3. Cholecystectomy. ANESTHESIA: General. COMPLICATIONS: None. ESTIMATED BLOOD LOSS: 50 mL. DESCRIPTION OF PROCEDURE: With the patient lying in bed in the supine position under good general endotracheal anesthesia, the abdomen was prepped with Betadine solution and draped in the usual manner. A lower midline incision was made. It was carried down through the subcutaneous tissue and through the midline fascia. The peritoneum was opened and the abdomen was entered. Upon entering the abdominal cavity, immediately a foul odor was encountered. Exploration revealed that about 3 feet of terminal ileum was dusky appearing and had some obvious color change with bruises in the serosa and some thickening of the bowel. Similarly, the cecum itself appeared to be also starting to have some of the same changes. The proximal bowel appeared to be normal. The small bowel was run and was found to be normal. The colon distal to the hepatic flexure also appeared to be normal. Examination of the upper abdomen revealed a tensely distended discolored gallbladder consistent with also acalculous cholecystitis. The patient had a history of having a nonfunctioning gallbladder now for a while. So, we decided that the bowel would need to be resected, as well as the gallbladder needed to be removed. We went proximally in the terminal ileum to where the bowel looked pretty much normal. It was then divided at this point with an application of the STU-75 stapler. Similarly, at the level of the midtransverse colon, the colon was divided with an application of a STU-75 stapler. The right colon was then mobilized off the lateral gutter without any difficulty and brought medially. The mesentery of the terminal ileum and colon was then divided with the In-Seal device and the specimen was sent for pathological examination. After this was done, the peritoneum overlying the neck of the gallbladder was then opened. The cystic duct was identified. A 2-0 silk tie was placed around the cystic duct and left in place. The cystic artery was identified, ligated with 2-0 silk and divided. The gallbladder was then sharply taken off of the liver bed using the cautery. There was a lot of thickening, fibrosis and inflammatory reaction of the liver bed consistent with a chronic cholecystitis problem. At the neck of the gallbladder, the cystic artery was then again identified. It had previously been tied and was then divided. The cystic duct was then ligated with 2-0 silk and divided. The gallbladder was sent for pathological examination. Perfect hemostasis of the liver bed was ascertained. The anastomosis was then performed by bringing the small bowel up to the midtransverse colon. Another application of the STU-75 stapler was used, and the remaining opening was closed with a TA-60 stapler. Gloves and instruments were changed. Anastomosis was then reinforced with 3-0 silk. The mesenteric rent was closed with a running suture of 2-0 Vicryl. The abdomen was then copiously irrigated and all the excess fluid was aspirated. Perfect hemostasis was ascertained. Of note, also is the fact that the patient has a very large fibroid that occupies most of the pelvis. The bowel was then inspected again and no other areas of suspicious ischemic were encountered. So, the abdomen was then closed in layers. The peritoneum was closed with a running suture of #1 Vicryl. The midline fascia was closed with a running suture of #1 Vicryl. The skin was closed with clips. A dressing was applied. The sponge, lap and needle count was correct. The patient tolerated the procedure well and returned to the recovery room in stable condition. Job#: [id number] CARLA
--- OUTSIDE RECORDS SUMMARY | 2018-09-16 07:23 | XMS REPORT | Clinical Summary ---
Author Author [facility] Address Unknown Phone Unavailable Care Team Providers Care Towing Pilot Name Role Phone PCP Unavailable Allergies Not [...] ID Type Phone Address Plan / Group [facility] H[facility]/PPO THCARE CHOICE[place] [address]
[2018-09-16 08:10] LABS: BASOPHILS # (AUTO) 0.1 (0.0-0.1); BASOPHILS % 0.3 % (0.0-1.0); HEMATOCRIT 26.8 % (34.2-44.1); LYMPHOCYTES # (AUTO) 0.8 (1.0-3.2); LYMPHOCYTES % 3.7 % (18.0-39.1); MEAN CORPUSCULAR HGB CONC 33.6 g/dL (31-35); MEAN CORPUSCULAR VOLUME 80.5 fL (81-99); MONOCYTES # (AUTO) 1.1 (0.2-0.8); MONOCYTES % 5.1 % (4.4-11.3); NEUTROPHILS # (AUTO) 18.8 (2.1-6.9); NEUTROPHILS % 90.4 % (38.7-80.0); PLATELET COUNT 416 x10e3/uL (140-360); RED BLOOD COUNT 3.33 x10e6/uL (3.6-5.1); RED CELL DISTRIBUTION WIDTH 17.6 % (11.7-14.4)
[2018-09-16 08:34] LABS: ALANINE AMINOTRANSFERASE 32 IU/L (0-55); ALBUMIN 2.2 g/dL (3.5-5.0); ALBUMIN/GLOBULIN RATIO 0.7 (0.8-2.0); ALKALINE PHOSPHATASE 59 IU/L (40-150); AMYLASE 25 U/L (25-125); ANION GAP 11.8 mmol/L (8-16); BLOOD UREA NITROGEN 8 mg/dL (7-26); BUN/CREATININE RATIO 13 (6-25); CARBON DIOXIDE 24 mmol/L (22-29); CHLORIDE 100 mmol/L (98-107); CREATININE, SERUM 0.64 mg/dL (0.57-1.11); EST GLOMERULAR FILTRATION RATE > 60 ML/MIN (60-); GLUCOSE 157 mg/dL (74-118); LIPASE 4 U/L (8-78); SODIUM 133 mmol/L (136-145)
[2018-09-16 08:35] LABS: POTASSIUM 2.8 mmol/L (3.5-5.1)
[2018-09-16 08:51] LABS: CREATINE KINASE MB 0.7 ng/mL (0-5.0)
[2018-09-16] MEDS ORDERED: METOPROLOL TARTRATE INJ 1 MG/ML VIAL IV SCH (09:00)
[2018-09-16] MEDS ORDERED: POTASSIUM CHLORIDE 20MEQ/100ML 400 ML IV ONE (09:30)
[2018-09-16] MEDS ORDERED: SODIUM CHLORIDE 0.9% 250ML 250 ML ONE (10:41)
[2018-09-16] MEDS: HYDROMORPHONE 2MG/ML 2 MG/ML ML IV PRN ×3 (10:50→21:24)
--- NOTE | 2018-09-16 14:13 | Consultation ---
DATE OF CONSULTATION: September 16, 2018 CARDIOLOGY CONSULTATION HISTORY: A 63-year-old lady who is diabetic, hypertensive, hyperlipidemic. Patient was at this institution in June 2018. At that time, patient had tachycardia, chest pain, and minimal leaks of cardiac enzymes. Because of her symptoms of angina and with her tachycardia and the leak of enzymes and her risk factors, plan was initially to proceed with cardiac catheterization to evaluate this problem. However, patient given 300 mg of Plavix, and she had major hematuria. Her Plavix was stopped at the same time during that stay, she had EGD done by Dr. Santana Levine, which showed severe large gastric ulcer. The patient treated for her ulcer. She continued on medical therapy. The patient supposed to follow up with Dr. Levine shortly to have repeat EGD for followup on her very large gastric ulcer. However, for the last 2 to 3 days, she is having diffuse abdominal pain. 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 CT scan showed evidence of ischemic colitis. Patient rushed to surgery, had partial resection of the small bowel and cholecystectomy. Patient in intensive care unit. Cardiac consultation is obtained because of her cardiac history. Patient's symptoms prior to the admission were mainly of GI origin with acute abdomen, nausea, and very severe abdominal pain. Of note, her CT scan showed severe atherosclerosis of her celiac and superior mesenteric artery. Her hematuria seems to be resolved. Prior to this illness, she was having moderate shortness of breath on exertion and chest tightness. There were no orthopnea, no paroxysmal nocturnal dyspnea. Interestingly, patient has history of weight loss for almost 70 pounds in the last few months. She does have chronic diarrhea. She was diagnosed of possibility of Crohn's disease or irritable bowel syndrome. Regarding her diabetes mellitus, hypertension, hypercholesterolemia, patient is on appropriate therapy. CURRENT MEDICATIONS 1. Amlodipine 5 mg a day. 2. Lovastatin 20 mg a day. 3. Losartan/hydrochlorothiazide 100/25 one tablet a day. 4. Atenolol 25 mg twice a day. 5. Colestipol 1 g 2 tablets daily. 6. Glimepiride 1 mg daily. 7. Dicyclomine 2 capsules t.i.d. 8. Protonix 40 mg a day. 9. Carafate 1 g daily. 10. Pepcid. 11. Probiotic. ALLERGIES: LIPITOR CAUSING IN THE PAST ELEVATED LIVER ENZYMES. PAST MEDICAL HISTORY 1. Hypertension. 2. Diabetes mellitus. 3. Hyperlipidemia. 4. History of proteinuria. 5. Major gastric ulcer. 6. Possible Crohn's disease. 7. Gross hematuria. SOCIAL HISTORY: She is single. She is an ex-smoker. She is not a social alcohol drinker. 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 FAMILY HISTORY: Father at age 55 with complication of alcoholism. Mother in her 70s with kidney and liver disease as she was diabetic. Nine siblings, few are diabetic. No children. REVIEW OF SYSTEMS GENERAL: Fever, chills. HEENT: Unremarkable. CARDIAC: As per above. PULMONARY: As per above. GI: As per acute illness, basically presentation was acute abdomen. Prior to that, patient having abdominal pain and diarrhea. : No frequency. MUSCULOSKELETAL: No back pain. SKIN: Occasional rashes. NEUROLOGICAL: No seizure activity or weakness. PHYSICAL EXAMINATION VITALS: Height of 5 feet 3 inches, weight of 136 pounds, blood pressure 130/70, heart rate of 80, respiratory rate of 18. HEENT: Pupils are reactive. NECK: No elevation of jugular venous pulsation. CHEST: Clear to auscultation and percussion. HEART: Holosystolic murmur noted. ABDOMEN: There is binder in place. Drainage is in place. EXTREMITIES: No cyanosis. No clubbing. No edema. NEUROLOGIC: Nonfocal. OTHER FINDINGS: NG tube suction. IMPRESSION 1. Acute abdomen, status post surgery. 2. History of coronary artery disease. 3. Hypertension. 4. Diabetes mellitus with complications. 5. Mild aortic stenosis. PLAN: Cardiac wagner, my recommendation will be supportive. Antibiotics coverage. IV fluids. Beta blockers, and we will adjust medication as treatment needed. We will follow patient's progression with you and would like to thank you for your kind referral. Job#: [id number] LPA
[2018-09-16] MEDS ORDERED: FENTANYL CITRATE/PF 100MCG/2 ML INJ ONE (15:49)
[2018-09-16] MEDS ORDERED: MIDAZOLAM HCL 2 MG/2 ML VIAL ONE (15:49)
[2018-09-16] MEDS: MAGNESIUM SULFATE 2GM/50ML 50 ML IV PRN (16:36)
[2018-09-16 17:01] LABS: CREATINE KINASE MB 0.7 ng/mL (0-5.0)
[2018-09-16] MEDS ORDERED: SUCCINYLCHOLINE 200 MG/10 ML SYR ONE (18:11)
[2018-09-16] MEDS ORDERED: ROCURONIUM BROMIDE 10 MG/ML 5ML VIAL ONE (18:11)
[2018-09-16] MEDS ORDERED: GLYCOPYRROLATE INJ 1MG/ 5 ML SYR ONE (18:11)
[2018-09-16] MEDS ORDERED: NEOSTIGMINE 5 MG/5ML SYR ONE (18:11)
[2018-09-16] MEDS ORDERED: PROPOFOL IV EMULSION 10 MG/ML 20 ML VIAL ONE (18:11)
[2018-09-16] MEDS ORDERED: SEVOFLURANE INHAL SOLN 250 ML PEN BTL ONE (18:11)
[2018-09-16] MEDS ORDERED: LIDOCAINE HCL 2% LOCAL INJ 5 ML SDV VIAL INJ ONE (18:11)
[2018-09-16] MEDS: METOPROLOL TARTRATE INJ 1 MG/ML VIAL IV SCH (21:43)
[2018-09-17] VITALS (20 sets, daily range): BP systolic 103–143; BP diastolic 34–63
[2018-09-17] MEDS: SODIUM CHLORIDE 0.9% 250ML IRRIG IR SCH ×6 (02:12→22:40)
[2018-09-17] MEDS: HYDROMORPHONE 2MG/ML 2 MG/ML ML IV PRN ×5 (02:12→19:50)
--- NOTE | 2018-09-17 03:28 | Progress Note ---
DATE: Physician cancelled. Job#: [id number] GE
--- NOTE | 2018-09-17 03:46 | History and Physical ---
PRIMARY CARE DOCTOR: Dr. Garcia from [facility]. This is coverage for Dr. Frank Lynch. HISTORY: Ms. Church is a pleasant 63-year-old female with abdominal pain. She is having a lot of nausea. The patient came for CT of chest emergently and saw severe atherosclerosis of celiac and superior mesenteric artery. The patient has been having chronic weight loss of almost 70 pounds in the last few months, and she has had chronic diarrhea. She was diagnosed with Crohn versus irritable bowel syndrome by her GI doctor, Santana Levine. Given the acute findings which are suggestive largely of ischemic colitis, the patient had emergency surgery. She had partial resection of small bowel and cholecystectomy. Currently, the patient is on 2 L per minute of oxygen and spontaneously breathing. NG tube in place and on intermittent/continuous wall suction. PAST MEDICAL HISTORY: Hypertension, diabetes, hyperlipidemia, peptic ulcer disease, Crohn disease versus irritable bowel syndrome. MEDICATIONS: List reviewed per electronic record. Currently, on Zosyn and Flagyl antibiotics. ALLERGIES: ATORVASTATIN ALLERGY. SOCIAL HISTORY: Tobacco at age 18 to 63, one pack per day. No alcohol. No drugs. FAMILY HISTORY: Noncontributory. REVIEW OF SYSTEMS: Difficult to get as she has throat pain and NG tube in place. PHYSICAL EXAMINATION VITALS: Currently afebrile. Vital signs noted. Stable per electronic record. GENERAL: In no acute distress. Alert and slightly tired in bed. HEENT: Normocephalic and atraumatic. NECK: Supple. Throat midline. LUNGS: Bilateral air entry. Clear. CARDIOVASCULAR: S1 and S2. No murmurs, rubs or gallops. ABDOMEN: Soft and nontender. EXTREMITIES: No clubbing. No cyanosis. There is no edema. INTEGUMENT: No rash. No purpura. LABS: Potassium 2.8, bicarbonate 24, BUN 8, creatinine 0.6. White count 21, hematocrit 27 and platelets 416,000. INR 1.2. IMPRESSION AND PLAN 1. Ischemic colitis. 2. Postoperative state: Status post partial small-bowel resection and cholecystectomy. 3. Peripheral vascular disease, including atherosclerosis of celiac and superior mesenteric artery per computerized tomography. 4. Chronic obstructive pulmonary disease: Seems very likely. 5. Hypertension. 6. Diabetes. 7. Hyperlipidemia. 8. History of peptic ulcer disease. 9. Crohn disease versus irritable bowel disease. 10. Active smoker. 11. Hypokalemia and hyponatremia. Give aggressive potassium and magnesium. Recheck blood work in the morning. The patient will continue on supplemental oxygen. She is on NG tube suctioning per surgery. Smoking cessation is highly recommended. For now, continue other supportive treatment. The patient can get vitamins 1 dose given her significant weight loss recently. Thank you very much, Dr. Garcia, for allowing me the chance to participate in the care of Mrs. Church. Do not hesitate to contact me if I can help in any way. Job#: [id number] CARLA
[2018-09-17 05:02] LABS: ALANINE AMINOTRANSFERASE 121 IU/L (0-55); ALBUMIN 1.9 g/dL (3.5-5.0); ALBUMIN/GLOBULIN RATIO 0.6 (0.8-2.0); ALKALINE PHOSPHATASE 67 IU/L (40-150); BLOOD UREA NITROGEN 9 mg/dL (7-26); BUN/CREATININE RATIO 13 (6-25); CALCIUM 8.1 mg/dL (8.4-10.2); CARBON DIOXIDE 25 mmol/L (22-29); CHLORIDE 105 mmol/L (98-107); CREATININE, SERUM 0.69 mg/dL (0.57-1.11); EST GLOMERULAR FILTRATION RATE > 60 ML/MIN (60-); GLUCOSE 84 mg/dL (74-118); SODIUM 134 mmol/L (136-145)
[2018-09-17 05:03] LABS: PHOSPHORUS 2.9 MG/DL (2.3-4.7)
[2018-09-17] MEDS: PIPER-TAZ 3.375 GM 50 ML IV SCH ×3 (05:10→19:20)
[2018-09-17] MEDS: PANTOPRAZOLE 40 MG 10ML VIAL IV SCH (05:10)
[2018-09-17] MEDS: INSULIN REGULAR, HUMAN 100 UNIT/1 ML 3ML VIAL SQ SCH ×4 (06:00→18:00)
[2018-09-17] MEDS: SODIUM CHLORIDE 0.9% 1000ML 1,000 ML IV SCH ×3 (06:00→14:10)
[2018-09-17] MEDS: METRONIDAZOLE 500MG/NS 100ML 100 ML IV SCH ×3 (06:30→18:30)
[2018-09-17 06:58] LABS: BASOPHILS # (AUTO) 0.1 (0.0-0.1); BASOPHILS % 0.9 % (0.0-1.0); EOSINOPHILS % 0.3 % (0.0-6.0); HEMATOCRIT 24.8 % (34.2-44.1); LYMPHOCYTES # (AUTO) 1.7 (1.0-3.2); MEAN CORPUSCULAR HEMOGLOBIN 27.1 pg (28-32); MEAN CORPUSCULAR HGB CONC 32.3 g/dL (31-35); MEAN CORPUSCULAR VOLUME 84.1 fL (81-99); MONOCYTES # (AUTO) 1.5 (0.2-0.8); MONOCYTES % 10.1 % (4.4-11.3); NEUTROPHILS # (AUTO) 11.7 (2.1-6.9); NEUTROPHILS % 77.1 % (38.7-80.0); PLATELET COUNT 362 x10e3/uL (140-360); RED BLOOD COUNT 2.95 x10e6/uL (3.6-5.1); RED CELL DISTRIBUTION WIDTH 18.2 % (11.7-14.4)
[2018-09-17] MEDS ORDERED: THIAMINE HCL INJ 100 MG in SODIUM CHLORIDE 0.9% 50ML 50 ML IV ONE (09:00)
[2018-09-17] MEDS: METOPROLOL TARTRATE INJ 1 MG/ML VIAL IV SCH ×2 (09:06→22:00)
[2018-09-17] MEDS: BISACODYL 10 MG SUPP PR SCH (22:00)
--- NOTE | 2018-09-17 22:33 | Diagnostic Imaging Report ---
ABDOMEN-1VIEW (KUB) Clinical history: Verifying G-tube placement Technique: AP view abdomen Comparison: CT from 09/15/2018 Findings: Hemidiaphragms are partially excluded. Overlying skin madalyn related to recent surgery with presumed postsurgical pneumoperitoneum poorly assessed on supine view. Paucity of bowel gas without evidence of obstruction. Large calcified pelvic fibroid. Impression: NG tube tip overlies the gastric antrum. Signed by: Dr Brisa Molina MD on 09/17/2018 10:30 PM
[2018-09-18] VITALS (7 sets, daily range): BP systolic 104–169; BP diastolic 50–75
[2018-09-18] MEDS: PIPER-TAZ 3.375 GM 50 ML IV SCH ×4 (01:00→18:44)
[2018-09-18] MEDS: SODIUM CHLORIDE 0.9% 250ML IRRIG IR SCH ×5 (01:49→17:45)
[2018-09-18] MEDS: HYDROMORPHONE 2MG/ML 2 MG/ML ML IV PRN ×2 (03:01→20:41)
--- NOTE | 2018-09-18 03:10 | Progress Note ---
DATE: September 17, 2018 INTERNAL MEDICINE PROGRESS NOTE Coverage for Dr. Lynch. SUBJECTIVE: Ms. Church was seen and examined at bedside. She continues to have NG tube in place on continuous low suction. She is sitting up today. Normal saline at 125 mL per hour. Arellano in place with good urine output. REVIEW OF SYSTEMS: No headaches, no nosebleeds. OBJECTIVE: VITAL SIGNS: Afebrile, vital signs noted per electronic record. GENERAL: Looks pale, but no acute distress. HEENT: Normocephalic, atraumatic. NECK: Supple. Throat midline. LUNGS: Bilateral air entry, decreased breath sounds, rare rhonchi. CARDIOVASCULAR: S1, S2. No murmurs, rubs, or gallops. ABDOMEN: Soft, nontender. EXTREMITIES: No clubbing, no cyanosis, there is no edema. INTEGUMENT: No rash or purpura. LABS: 4.0 potassium, 9 BUN, 0.7 creatinine. 15 white count, 25 hematocrit, 362,000 platelets. IMPRESSIONS AND PLAN: 1. Postoperative state, status post partial small-bowel resection and cholecystectomy. 2. Ischemic colitis on admission. 3. Peripheral vascular disease including celiac and superior mesenteric artery atherosclerotic disease. 4. Chronic obstructive pulmonary disease likely, without active flare. 5. Hypertension. 6. Diabetes. 7. Hyperlipidemia. 8. Crohn's disease versus irritable bowel disease. 9. Active smoker. Nasogastric tube to remain in place at this time. Continue n.p.o. state. Continue intravenous fluids and continue to mobilize her as possible. Follow up closely. Job#: [id number]
[2018-09-18] MEDS: METRONIDAZOLE 500MG/NS 100ML 100 ML IV SCH ×4 (05:30→20:40)
[2018-09-18 05:49] LABS: BASOPHILS # (AUTO) 0.1 (0.0-0.1); BASOPHILS % 0.8 % (0.0-1.0); EOSINOPHILS % 0.2 % (0.0-6.0); HEMOGLOBIN 7.2 g/dL (12.0-16.0); LYMPHOCYTES # (AUTO) 1.4 (1.0-3.2); LYMPHOCYTES % 9.6 % (18.0-39.1); MEAN CORPUSCULAR HEMOGLOBIN 27.4 pg (28-32); MEAN CORPUSCULAR HGB CONC 32.3 g/dL (31-35); MEAN CORPUSCULAR VOLUME 84.8 fL (81-99); MONOCYTES # (AUTO) 1.8 (0.2-0.8); MONOCYTES % 12.3 % (4.4-11.3); NEUTROPHILS # (AUTO) 11.1 (2.1-6.9); NEUTROPHILS % 76.5 % (38.7-80.0); PLATELET COUNT 331 x10e3/uL (140-360); RED BLOOD COUNT 2.63 x10e6/uL (3.6-5.1); RED CELL DISTRIBUTION WIDTH 18.5 % (11.7-14.4)
[2018-09-18] MEDS: PANTOPRAZOLE 40 MG 10ML VIAL IV SCH (05:51)
[2018-09-18 05:56] LABS: HEMATOCRIT 22.3 % (34.2-44.1)
[2018-09-18] MEDS: INSULIN REGULAR, HUMAN 100 UNIT/1 ML 3ML VIAL SQ SCH ×4 (06:00→18:00)
[2018-09-18 06:30] LABS: ALANINE AMINOTRANSFERASE 116 IU/L (0-55); ALBUMIN 1.8 g/dL (3.5-5.0); ALBUMIN/GLOBULIN RATIO 0.5 (0.8-2.0); ALKALINE PHOSPHATASE 65 IU/L (40-150); ANION GAP 11.6 mmol/L (8-16); BLOOD UREA NITROGEN 8 mg/dL (7-26); BUN/CREATININE RATIO 12 (6-25); CALCIUM 8.1 mg/dL (8.4-10.2); CARBON DIOXIDE 22 mmol/L (22-29); CHLORIDE 113 mmol/L (98-107); CREATININE, SERUM 0.67 mg/dL (0.57-1.11); EST GLOMERULAR FILTRATION RATE > 60 ML/MIN (60-); GLUCOSE 67 mg/dL (74-118); POTASSIUM 3.6 mmol/L (3.5-5.1); SODIUM 143 mmol/L (136-145)
[2018-09-18] MEDS ORDERED: DEXTROSE 50% SYRINGE 50 ML IV PRN (07:00)
[2018-09-18] MEDS: BISACODYL 10 MG SUPP PR SCH (08:00)
[2018-09-18 09:08] LABS: LYMPHOCYTES % (MANUAL) 3 % (19-48); MONOCYTES % (MANUAL) 8 % (3.4-9.0); NEUTROPHILS % (MANUAL) 88 % (40-74)
[2018-09-18 09:09] LABS: ANISOCYTOSIS SLIGHT; HYPOCHROMASIA MODERATE; PLATELET ESTIMATE ADEQUATE; RBC MORPHOLOGY COMMENT NORMAL
[2018-09-18 09:10] LABS: PLATELET MORPHOLOGY COMMENT FEW LARGE
[2018-09-18] MEDS: SODIUM CHLORIDE 0.9% 1000ML 1,000 ML IV SCH (10:30)
[2018-09-18] MEDS: METOPROLOL TARTRATE INJ 1 MG/ML VIAL IV SCH ×2 (10:50→22:03)
[2018-09-18] MEDS ORDERED: SODIUM CHLORIDE 0.9% 250ML 250 ML ONE (15:16)
[2018-09-18] MEDS ORDERED: SODIUM CHLORIDE 0.9% 250ML 250 ML IV PRN (16:15)
[2018-09-18] MEDS: FUROSEMIDE INJ 10 MG/ML 2 ML VIAL IV PRN (18:30)
[2018-09-18] MEDS: ONDANSETRON HCL INJ 2 MG/ML VIAL IV PRN (20:41)
[2018-09-19] VITALS (8 sets, daily range): BP systolic 103–190; BP diastolic 49–76
[2018-09-19] MEDS: PIPER-TAZ 3.375 GM 50 ML IV SCH ×4 (00:25→18:00)
[2018-09-19] MEDS: METRONIDAZOLE 500MG/NS 100ML 100 ML IV SCH ×4 (01:51→17:30)
[2018-09-19] MEDS: FUROSEMIDE INJ 10 MG/ML 2 ML VIAL IV PRN (02:16)
[2018-09-19] MEDS: HYDROMORPHONE 2MG/ML 2 MG/ML ML IV PRN ×3 (03:49→18:45)
--- NOTE | 2018-09-19 04:16 | Progress Note ---
DATE: September 18, 2018 INTERNAL MEDICINE PROGRESS NOTE Coverage for Dr. Frank Lynch. SUBJECTIVE: Ms. Church was seen and examined at bedside. No nausea and no vomiting today. No flatus, however. She did however record a bowel movement. She was able to walk today. NG tube in place. REVIEW OF SYSTEMS: No bleeding and no headaches. OBJECTIVE VITAL SIGNS: Afebrile, vital signs noted per electronic record. GENERAL: In no acute distress, alert and calm. HEENT: Normocephalic, atraumatic. NECK: Supple. Throat midline. LUNGS: Bilateral air entry, mildly decreased breath sounds, clear. CARDIOVASCULAR: S1 and S2. No murmurs, rubs, or gallops. ABDOMEN: Soft and nontender. EXTREMITIES: No clubbing and no cyanosis. There is no edema. INTEGUMENT: No rash and no purpura. LABS: Potassium 3.6 and 0.7 creatinine. White count 15 and 22 hematocrit. IMPRESSION AND PLAN 1. Ischemic colitis, emergent. 2. Postoperative state, status post partial small bowel resection and cholecystectomy. 3. Peripheral vascular disease, celiac/superior mesenteric arteries per CT scan. 4. Chronic obstructive pulmonary disease . 5. History of Crohn's versus irritable bowel syndrome. 6. Active smoker. 7. Anemia. NG tube. Continue to give ice chips for comfort. Decide on diet by tomorrow noting the bowel movement. NG tube will be planned and give the packed red blood cells transfusions. Repeat labs tomorrow. Continue to ambulate the patient. Job#: [id number] CINDY
[2018-09-19 05:40] LABS: BASOPHILS # (AUTO) 0.1 (0.0-0.1); BASOPHILS % 0.6 % (0.0-1.0); EOSINOPHILS % 0.3 % (0.0-6.0); HEMATOCRIT 29.2 % (34.2-44.1); HEMOGLOBIN 9.5 g/dL (12.0-16.0); LYMPHOCYTES # (AUTO) 1.4 (1.0-3.2); LYMPHOCYTES % 9.4 % (18.0-39.1); MEAN CORPUSCULAR HEMOGLOBIN 27.5 pg (28-32); MEAN CORPUSCULAR HGB CONC 32.5 g/dL (31-35); MEAN CORPUSCULAR VOLUME 84.6 fL (81-99); MONOCYTES # (AUTO) 1.6 (0.2-0.8); MONOCYTES % 10.7 % (4.4-11.3); NEUTROPHILS # (AUTO) 11.5 (2.1-6.9); NEUTROPHILS % 78.3 % (38.7-80.0); PLATELET COUNT 352 x10e3/uL (140-360); RED BLOOD COUNT 3.45 x10e6/uL (3.6-5.1); RED CELL DISTRIBUTION WIDTH 17.3 % (11.7-14.4)
[2018-09-19] MEDS: INSULIN REGULAR, HUMAN 100 UNIT/1 ML 3ML VIAL SQ SCH ×4 (06:00→18:00)
[2018-09-19 06:15] LABS: BLOOD UREA NITROGEN 7 mg/dL (7-26); BUN/CREATININE RATIO 10 (6-25); CALCIUM 8.7 mg/dL (8.4-10.2); CARBON DIOXIDE 20 mmol/L (22-29); CHLORIDE 109 mmol/L (98-107); EST GLOMERULAR FILTRATION RATE > 60 ML/MIN (60-); MAGNESIUM 1.2 MG/DL (1.3-2.1); SODIUM 145 mmol/L (136-145)
[2018-09-19] MEDS: PANTOPRAZOLE 40 MG 10ML VIAL IV SCH (06:16)
[2018-09-19 06:25] LABS: GLUCOSE 58 mg/dL (74-118)
[2018-09-19 06:54] LABS: LYMPHOCYTES % (MANUAL) 9 % (19-48); MONOCYTES % (MANUAL) 8 % (3.4-9.0); NEUTROPHILS % (MANUAL) 83 % (40-74); PLATELET ESTIMATE ADEQUATE; PLATELET MORPHOLOGY COMMENT NORMAL; RBC MORPHOLOGY COMMENT NORMAL
[2018-09-19] MEDS: DEXTROSE 5%/0.9% SOD CHL 1,000 ML IV SCH ×2 (07:30→21:14)
[2018-09-19] MEDS: ONDANSETRON HCL INJ 2 MG/ML VIAL IV PRN (10:04)
[2018-09-19] MEDS: METOPROLOL TARTRATE INJ 1 MG/ML VIAL IV SCH ×2 (10:04→21:14)
--- NOTE | 2018-09-19 13:33 | Progress Note ---
DATE: September 19, 2018 SUBJECTIVE: The patient was able to ambulate today. She is able to pass small amounts of air. She has not had any vomiting. She still has some abdominal pain that is relieved with pain medication. OBJECTIVE VITAL SIGNS: Stable. HEENT: Shows no facial swelling or erythema. The nasal mucosa is normal. The oropharynx is normal. LYMPHATIC: Shows no submandibular, cervical, or supraclavicular adenopathy. CARDIAC: Reveals a regular rate and rhythm with a normal S1 and S2. There are no murmurs or rubs. LUNGS: Auscultation of the lungs shows no clear breath sounds bilaterally. There is no wheezing. ABDOMEN: Soft. There is bandage. There is no rebound or guarding. EXTREMITIES: There is no leg edema. There are SCDs in place. IMPRESSION 1. Ischemic colitis, requiring partial colectomy. 2. History of Crohn disease. 3. Chronic obstructive pulmonary disease of unclear severity. 4. Anemia. 5. Hypomagnesemia. PLAN 1. Replace magnesium. 2. Continue ambulation. 3. Pain control. 4. Dressing changes as per surgery. 5. Discuss disposition with general surgery. Job#: [id number] LPA
[2018-09-19] MEDS: HYDROCODONE/APAP 7.5MG-325MG 1 EA TAB PO PRN (17:40)
[2018-09-19] MEDS: BISACODYL 10 MG SUPP PR SCH (21:14)
[2018-09-20] VITALS (7 sets, daily range): BP systolic 135–182; BP diastolic 60–80
[2018-09-20] MEDS: PIPER-TAZ 3.375 GM 50 ML IV SCH ×3 (00:07→12:00)
[2018-09-20] MEDS: METRONIDAZOLE 500MG/NS 100ML 100 ML IV SCH ×4 (00:43→17:49)
[2018-09-20] MEDS: PANTOPRAZOLE 40 MG 10ML VIAL IV SCH (05:57)
[2018-09-20] MEDS: HYDROCODONE/APAP 7.5MG-325MG 1 EA TAB PO PRN ×3 (05:57→17:52)
[2018-09-20 06:27] LABS: BASOPHILS # (AUTO) 0.1 (0.0-0.1); EOSINOPHILS # (AUTO) 0.6 (0.0-0.4); EOSINOPHILS % 4.9 % (0.0-6.0); HEMATOCRIT 30.6 % (34.2-44.1); LYMPHOCYTES # (AUTO) 1.9 (1.0-3.2); LYMPHOCYTES % 16.7 % (18.0-39.1); MEAN CORPUSCULAR HEMOGLOBIN 27.5 pg (28-32); MEAN CORPUSCULAR HGB CONC 32.7 g/dL (31-35); MEAN CORPUSCULAR VOLUME 84.1 fL (81-99); MONOCYTES # (AUTO) 1.3 (0.2-0.8); MONOCYTES % 11.6 % (4.4-11.3); NEUTROPHILS # (AUTO) 7.5 (2.1-6.9); NEUTROPHILS % 65.3 % (38.7-80.0); PLATELET COUNT 371 x10e3/uL (140-360); RED BLOOD COUNT 3.64 x10e6/uL (3.6-5.1); RED CELL DISTRIBUTION WIDTH 17.5 % (11.7-14.4)
[2018-09-20 06:47] LABS: ALANINE AMINOTRANSFERASE 57 IU/L (0-55); ALBUMIN/GLOBULIN RATIO 0.6 (0.8-2.0); ALKALINE PHOSPHATASE 69 IU/L (40-150); ANION GAP 11.5 mmol/L (8-16); BLOOD UREA NITROGEN < 5 mg/dL (7-26); CALCIUM 8.4 mg/dL (8.4-10.2); CARBON DIOXIDE 25 mmol/L (22-29); CHLORIDE 111 mmol/L (98-107); CREATININE, SERUM 0.68 mg/dL (0.57-1.11); EST GLOMERULAR FILTRATION RATE > 60 ML/MIN (60-); GLUCOSE 128 mg/dL (74-118); SODIUM 145 mmol/L (136-145)
[2018-09-20 06:49] LABS: BUN/CREATININE RATIO 7 (6-25); POTASSIUM 2.5 mmol/L (3.5-5.1)
[2018-09-20] MEDS: POTASSIUM CHLORIDE 20MEQ/100ML 200 ML IV PRN ×2 (07:03→09:00)
[2018-09-20] MEDS: BISACODYL 10 MG SUPP PR SCH (08:00)
[2018-09-20] MEDS: METOPROLOL TARTRATE INJ 1 MG/ML VIAL IV SCH (09:08)
[2018-09-20] MEDS: INSULIN REGULAR, HUMAN 100 UNIT/1 ML 3ML VIAL SQ SCH ×4 (11:30→21:00)
[2018-09-20] MEDS ORDERED: MAGNESIUM SULFATE 2GM/50ML 50 ML IV ONE (12:30)
[2018-09-20] MEDS: DEXTROSE 5%/0.9% SOD CHL 1,000 ML IV SCH ×2 (13:52→21:30)
[2018-09-20] MEDS: POTASSIUM CHLORIDE 20MEQ/100ML 200 ML IV SCH ×2 (15:00→17:13)
[2018-09-20] MEDS: HYDROMORPHONE 2MG/ML 2 MG/ML ML IV PRN (20:11)
[2018-09-21] VITALS (8 sets, daily range): BP systolic 126–171; BP diastolic 60–74
[2018-09-21] MEDS: METRONIDAZOLE 500MG/NS 100ML 100 ML IV SCH ×4 (00:04→17:40)
[2018-09-21] MEDS: HYDROCODONE/APAP 7.5MG-325MG 1 EA TAB PO PRN ×3 (05:25→17:40)
[2018-09-21 05:35] LABS: BASOPHILS # (AUTO) 0.1 (0.0-0.1); BASOPHILS % 0.9 % (0.0-1.0); EOSINOPHILS # (AUTO) 0.7 (0.0-0.4); EOSINOPHILS % 5.5 % (0.0-6.0); HEMATOCRIT 29.8 % (34.2-44.1); HEMOGLOBIN 10.1 g/dL (12.0-16.0); LYMPHOCYTES # (AUTO) 2.9 (1.0-3.2); MEAN CORPUSCULAR HEMOGLOBIN 27.9 pg (28-32); MEAN CORPUSCULAR HGB CONC 33.9 g/dL (31-35); MEAN CORPUSCULAR VOLUME 82.3 fL (81-99); MONOCYTES # (AUTO) 1.2 (0.2-0.8); MONOCYTES % 9.9 % (4.4-11.3); NEUTROPHILS # (AUTO) 6.8 (2.1-6.9); NEUTROPHILS % 58.3 % (38.7-80.0); PLATELET COUNT 392 x10e3/uL (140-360); RED BLOOD COUNT 3.62 x10e6/uL (3.6-5.1); RED CELL DISTRIBUTION WIDTH 17.4 % (11.7-14.4)
[2018-09-21 05:51] LABS: ALANINE AMINOTRANSFERASE 40 IU/L (0-55); ALBUMIN 1.9 g/dL (3.5-5.0); ALBUMIN/GLOBULIN RATIO 0.6 (0.8-2.0); ALKALINE PHOSPHATASE 59 IU/L (40-150); ANION GAP 7.8 mmol/L (8-16); BLOOD UREA NITROGEN < 5 mg/dL (7-26); CARBON DIOXIDE 23 mmol/L (22-29); CHLORIDE 111 mmol/L (98-107); CREATININE, SERUM 0.53 mg/dL (0.57-1.11); EST GLOMERULAR FILTRATION RATE > 60 ML/MIN (60-); GLUCOSE 105 mg/dL (74-118); MAGNESIUM 1.2 MG/DL (1.3-2.1); SODIUM 139 mmol/L (136-145)
[2018-09-21 05:55] LABS: BUN/CREATININE RATIO 9 (6-25); POTASSIUM 2.8 mmol/L (3.5-5.1)
[2018-09-21] MEDS: PANTOPRAZOLE 40 MG 10ML VIAL IV SCH (06:02)
[2018-09-21] MEDS: POTASSIUM CHLORIDE 20MEQ/100ML 200 ML IV PRN (06:37)
[2018-09-21] MEDS: INSULIN REGULAR, HUMAN 100 UNIT/1 ML 3ML VIAL SQ SCH ×4 (07:30→21:00)
[2018-09-21] MEDS: MAGNESIUM SULFATE 2GM/50ML 50 ML IV PRN (08:25)
[2018-09-21] MEDS ORDERED: MAGNESIUM SULFATE 2GM/50ML 50 ML IV ONE (09:00)
[2018-09-21] MEDS: DEXTROSE 5%/0.9% SOD CHL 1,000 ML IV SCH (09:30)
[2018-09-21] MEDS ORDERED: DIPHENOXYLATE/ATROPINE TAB PO NR (11:15)
[2018-09-21] MEDS: POTASSIUM CHLORIDE 20MEQ/100ML 100 ML IV SCH ×3 (12:08→15:03)
[2018-09-22 00:06] VITALS: BP 129/61
[2018-09-22] MEDS: METRONIDAZOLE 500MG/NS 100ML 100 ML IV SCH ×3 (00:29→12:19)
[2018-09-22] MEDS: HYDROCODONE/APAP 7.5MG-325MG 1 EA TAB PO PRN (00:42)
[2018-09-22 05:28] VITALS: BP 124/59
[2018-09-22 06:13] LABS: BASOPHILS # (AUTO) 0.1 (0.0-0.1); EOSINOPHILS # (AUTO) 0.7 (0.0-0.4); EOSINOPHILS % 6.1 % (0.0-6.0); HEMATOCRIT 30.4 % (34.2-44.1); HEMOGLOBIN 10.1 g/dL (12.0-16.0); LYMPHOCYTES # (AUTO) 2.3 (1.0-3.2); LYMPHOCYTES % 20.5 % (18.0-39.1); MEAN CORPUSCULAR HEMOGLOBIN 27.8 pg (28-32); MEAN CORPUSCULAR HGB CONC 33.2 g/dL (31-35); MEAN CORPUSCULAR VOLUME 83.7 fL (81-99); MONOCYTES # (AUTO) 1.1 (0.2-0.8); MONOCYTES % 9.5 % (4.4-11.3); NEUTROPHILS % 62.4 % (38.7-80.0); PLATELET COUNT 379 x10e3/uL (140-360); RED BLOOD COUNT 3.63 x10e6/uL (3.6-5.1); RED CELL DISTRIBUTION WIDTH 17.5 % (11.7-14.4)
[2018-09-22] MEDS: PANTOPRAZOLE 40 MG 10ML VIAL IV SCH (06:17)
[2018-09-22 06:36] LABS: ALANINE AMINOTRANSFERASE 25 IU/L (0-55); ALBUMIN 1.8 g/dL (3.5-5.0); ALBUMIN/GLOBULIN RATIO 0.6 (0.8-2.0); ALKALINE PHOSPHATASE 49 IU/L (40-150); ANION GAP 11.2 mmol/L (8-16); CALCIUM 7.8 mg/dL (8.4-10.2); CARBON DIOXIDE 23 mmol/L (22-29); CHLORIDE 108 mmol/L (98-107); CREATININE, SERUM 0.54 mg/dL (0.57-1.11); EST GLOMERULAR FILTRATION RATE > 60 ML/MIN (60-); GLUCOSE 117 mg/dL (74-118); MAGNESIUM 1.5 MG/DL (1.3-2.1); POTASSIUM 3.2 mmol/L (3.5-5.1); SODIUM 139 mmol/L (136-145)
[2018-09-22 06:40] LABS: BLOOD UREA NITROGEN < 2 mg/dL (7-26); BUN/CREATININE RATIO 4 (6-25)
[2018-09-22] MEDS: INSULIN REGULAR, HUMAN 100 UNIT/1 ML 3ML VIAL SQ SCH ×2 (07:30→11:30)
[2018-09-22 08:19] VITALS: BP 129/60
[2018-09-22] MEDS ORDERED: POTASSIUM CHLORIDE 20 MEQ TAB CR PO STA (10:17)
[2018-09-22] MEDS ORDERED: MAGNESIUM SULFATE 2GM/50ML 50 ML IV ONE (10:30)
[2018-09-22 12:33] VITALS: BP 156/70
--- NOTE | 2018-09-22 12:47 | Discharge Summary ---
PRIMARY CARE DOCTOR: Dr. Garcia with [facility] FINAL DIAGNOSIS: Ischemic colitis with bowel. SECONDARY DIAGNOSES 1. Acalculous cholecystitis. 2. Peripheral vascular disease. 3. Hypertension. 4. Diabetes. 5. Dyslipidemia. 6. Peptic ulcer disease. 7. Possible Crohn's disease. CONSULTANTS 1. Dr. Seven Walton, surgery. 2. Dr. Baeza, cardiology. PROCEDURES/STUDIES PERFORMED 1. CT abdomen and pelvis, which showed ischemic distal small bowel with pneumatosis and portal vein gas. Also, narrowing/occlusion of the celiac and SMA origins but patent distally. 2. Right colectomy with resection of terminal ileum and cholecystectomy. HISTORY: Per H and P. HOSPITAL COURSE: The patient was emergently taken to surgery. She did well. The patient was kept on Zosyn and IV Flagyl. She did well. Currently, the patient is tolerating a soft diet. Will likely go home later on today if okay with surgery. The patient is currently ambulating as well. I have also discussed this case in detail with Dr. Baeza. At this time, there is no indication for stenting of the SMA or celiac artery. I am waiting to hear back to see whether we should put her on a baby aspirin a day. The patient was taken off a baby aspirin 2 months ago due to peptic ulcer disease. Since then, the patient has been on PPI and Carafate. She is waiting for a repeat EGD. The patient was seen and examined today. It took 32 minutes total to discharge this patient. CONDITION ON DISCHARGE: Improved. DISCHARGE MEDICATIONS: Please see medication reconciliation form. FOLLOWUP: The patient will follow up with the surgeon and the PCP in 1 to 2 weeks. GARY ANDERS M.D. Job#: [id number] cc:DR. GARCIA WITH [facility]
[2018-09-22] MEDS ORDERED: ASPIRIN81 MG PO (15:34)
[2018-09-22] MEDS ORDERED: TYLENOL # 31 EA PO (15:35)
[2018-09-22 16:07] VITALS: BP 161/73
[2018-10-01] MEDS ORDERED: DICYCLOMINE HCL10 MG PO (12:39)
[2018-10-01] MEDS ORDERED: CIPRO500 MG PO (12:40)
[2018-10-01] MEDS ORDERED: PANTOPRAZOLE SO40 MG PO (12:40)
--- NOTE | 2018-11-10 18:37 | Consultation ---
DATE OF CONSULT: September 16, 2018 PRESENTING COMPLAINT: Severe abdominal pain. This 63-year-old female was admitted to the hospital with about a 24-hour history of lower abdominal pain which started all of a sudden and has become progressively worse. The patient describes the pain as excruciating and constant. It never goes away. She states that she has also had some nausea, but has had no vomiting. The patient has a history of chronic diarrhea for over 6 months. She denies any bloody stools or any black stools. PAST MEDICAL HISTORY: Remarkable for hypertension, diabetes, hyperlipidemia, irritable bowel syndrome and there is also a question of Crohn's disease. MEDICATIONS: Please refer to the MAR. ALLERGIES: NONE. PHYSICAL EXAMINATION GENERAL: At the time that we saw the patient, revealed a female lying in bed in excruciating abdominal pain. She was tachycardiac and tachypneic. She was obviously dehydrated. VITAL SIGNS: She was afebrile. HEENT: Show very dry mucosa. NECK: No nodes, masses or bruits. LUNGS: Clear to auscultation. HEART: Regular rate and rhythm. ABDOMEN: Diffusely tender with guarding and rebound present. There were no palpable masses. EXTREMITIES: Good pulses bilaterally. CT scan of the abdomen was performed and showed the patient to have pneumatosis intestinalis and portal venous gas with severe atherosclerotic disease of the mesenteric vessels. ASSESSMENT: Acute surgical abdomen with hypotension and sepsis and shock secondary to ischemic bowel. PLAN: Aggressive hydration, antibiotics and emergency laparotomy with probable bowel resection. Job#: [id number]
== END 2018-09-22 16:25 | disposition home or self-care (01) | DRG 329 ==
LOC: ER 20:49 → ERHOLD 09-16 01:32 → UNDOADMIN 09-16 01:32 → OR 09-16 03:26 → ICU 09-16 07:21 → MED/SURG 09-17 16:04
PROVIDERS: ADMIT Internal Medicine; ATTEND Internal Medicine
PROC: 0DTF0ZZ Resection of Right Large Intestine, Open Approach (ICD-10-PCS; 2018-09-16)
PROC: 0DTB0ZZ Resection of Ileum, Open Approach (ICD-10-PCS; 2018-09-16)
PROC: 30233N1 Transfusion of Nonautologous Red Blood Cells into Peripheral Vein, Percutaneous Approach (ICD-10-PCS; 2018-09-16)
PROC: 0FT40ZZ Resection of Gallbladder, Open Approach (ICD-10-PCS; principal; 2018-09-16 03:45)
DX: K55.1 Chronic vascular disorders of intestine (principal); E43 Unspecified severe protein-calorie malnutrition; K81.0 Acute cholecystitis; E87.1 Hypo-osmolality and hyponatremia; R63.4 Abnormal weight loss; Z68.27 Body mass index [BMI] 27.0-27.9, adult; I10 Essential (primary) hypertension; E78.5 Hyperlipidemia, unspecified; Z87.11 Personal history of peptic ulcer disease; E11.51 Type 2 diabetes mellitus with diabetic peripheral angiopathy without gangrene; Z79.4 Long term (current) use of insulin; J44.9 Chronic obstructive pulmonary disease, unspecified; F17.210 Nicotine dependence, cigarettes, uncomplicated; E87.6 Hypokalemia; E83.42 Hypomagnesemia; D64.9 Anemia, unspecified
CPT/HCPCS: 36415; 51700; 71045; 74018; 74177; 80048; 80053; 81001; 82150; 82550; 82553; 82948; 83605; 83690; 83735; 84100; 84484; 85025; 85610; 85730; 86850; 86900; 86920; 88304; 88307; 93005; 96367; 96376; 99284; J1940; J2001; J2175; J2250; J2270; J2405; J2543; J3411; J3475; J3480; J7030; J7042; J7050; P9016; Q9967

== ENCOUNTER → 2018-10-02 | Day surgery (SDC) | payer OTHER ==
[~2018-10-02] MED LIST changes: +ASPIRIN81 MG PO; +CIPRO500 MG PO; +DEXTROSE 5% 250ML 250 ML IV ONE; +DICYCLOMINE HCL10 MG PO; +FENTANYL CITRATE/PF 100MCG/2 ML INJ ONE; +MIDAZOLAM HCL 2 MG/2 ML VIAL ONE; +PROPOFOL IV EMULSION 10 MG/ML 50 ML VIAL ONE; +TYLENOL # 31 EA PO
--- OUTSIDE RECORDS SUMMARY | 2018-10-02 11:17 | XMS REPORT | Clinical Summary ---
Author Author [facility] Organization [facility] Address Unknown Phone Unavailable Care Team Providers Care Fiberglass Auto Body Repairer Name Role Phone PCP Unavailable Allergies Not on File Current Medications Not on file Active Problems Not on file Encounters Date Type Specialty Care Team Description 08/12/2018 Clinical Corporate Wellness Support after 10/01/2017 Immunizations Name Dates Previously Given Next Due [...] Completed 08/12/2018, 09/11/2015 Results Not on fileafter 10/01/2017 Insurance Payer Benefit Subscriber ID Type Phone Address Plan / Group [facility] x[facility] HMO/PPO THCARE CHOICE/[place] [address]
[2018-10-02 12:13] LABS: BASOPHILS # (AUTO) 0.1 (0.0-0.1); BASOPHILS % 1.7 % (0.0-1.0); EOSINOPHILS # (AUTO) 0.3 (0.0-0.4); EOSINOPHILS % 4.7 % (0.0-6.0); HEMATOCRIT 33.5 % (34.2-44.1); HEMOGLOBIN 10.9 g/dL (12.0-16.0); LYMPHOCYTES % 29.2 % (18.0-39.1); MEAN CORPUSCULAR HEMOGLOBIN 28.2 pg (28-32); MEAN CORPUSCULAR HGB CONC 32.5 g/dL (31-35); MEAN CORPUSCULAR VOLUME 86.6 fL (81-99); MONOCYTES # (AUTO) 0.7 (0.2-0.8); MONOCYTES % 9.5 % (4.4-11.3); NEUTROPHILS # (AUTO) 3.8 (2.1-6.9); NEUTROPHILS % 54.6 % (38.7-80.0); PLATELET COUNT 490 x10e3/uL (140-360); RED BLOOD COUNT 3.87 x10e6/uL (3.6-5.1)
[2018-10-02 12:22] LABS: ANION GAP 15.9 mmol/L (8-16); BLOOD UREA NITROGEN < 5 mg/dL (7-26); CALCIUM 9.3 mg/dL (8.4-10.2); CARBON DIOXIDE 17 mmol/L (22-29); CHLORIDE 105 mmol/L (98-107); CREATININE, SERUM 0.65 mg/dL (0.57-1.11); EST GLOMERULAR FILTRATION RATE > 60 ML/MIN (60-); GLUCOSE 86 mg/dL (74-118); POTASSIUM 3.9 mmol/L (3.5-5.1); SODIUM 134 mmol/L (136-145)
[2018-10-02 12:30] LABS: BUN/CREATININE RATIO 8 (6-25)
[2018-10-02 14:15] VITALS: BP 141/57
--- NOTE | 2018-10-02 14:27 | Operative Report ---
DATE OF PROCEDURE: October 02, 2018 REFERRING PHYSICIAN: Dr. Jolene Garcia and Dr. Ruthie Walton. PROCEDURE PERFORMED: Esophagogastroduodenoscopy with biopsies. INDICATIONS FOR ESOPHAGOGASTRODUODENOSCOPY: History of gastric ulcer, nausea. MEDICATION: Patient was done under MAC. Please see anesthesiologist's note. PROCEDURE: With patient in the left lateral decubitus position, the flexible fiberoptic Olympus gastroscope was introduced into the esophagus under direct visualization without any difficulty. There was some patchy erythema noted in the distal esophagus. The scope was then advanced with ease into the stomach, and the mucosa overlying the body appeared somewhat atrophic, and biopsies were obtained. There was a minute nodule noted in the distal body anterior wall, and that was biopsied. There was some also atrophic-appearing mucosa in the proximal antrum, and the distal antrum appeared diffusely erythematous and edematous, and biopsies were obtained. The pylorus was intubated with ease, and the scope was advanced all the way to the 2nd portion of the duodenum. The duodenal folds appeared somewhat flattened, and biopsies were obtained to rule out sprue. The scope was then withdrawn back into the stomach and retroflexed, and the cardia appeared to be within normal limits. There were some mild atrophic changes noted in the fundus, also. The scope was then straightened out. The stomach was decompressed. The scope was subsequently withdrawn. Patient tolerated procedure well. IMPRESSION: 1. Mild distal esophagitis. 2. Gastritis, antrum, biopsied. 3. Rule out atrophic gastritis, body. 4. Minute nodule, distal body anterior wall, biopsied. 5. Rule out sprue. PLAN: Follow up histology. Continue Protonix 40 mg 1 p.o. q.a.m. a.c. as well as Carafate 1 gram p.o. a.c. t.i.d. and nightly. Job#: [id number] EV cc:MD RUTHIE SUAREZ MD
== END | disposition home or self-care (01) ==
LOC: OR 11:13
PROVIDERS: ATTEND Internal Medicine Gastroenterology
DX: Z87.11 Personal history of peptic ulcer disease (principal); R11.0 Nausea; K29.70 Gastritis, unspecified, without bleeding; Z88.8 Allergy status to other drugs, medicaments and biological substances; Z01.812 Encounter for preprocedural laboratory examination; K21.0 Gastro-esophageal reflux disease with esophagitis; E11.22 Type 2 diabetes mellitus with diabetic chronic kidney disease; N18.9 Chronic kidney disease, unspecified; K31.7 Polyp of stomach and duodenum; Z79.84 Long term (current) use of oral hypoglycemic drugs
CPT/HCPCS: 36415; 43239; 80048; 82948; 85025; 93005; J2250; J7070

== ENCOUNTER → 2019-01-02 | Day surgery (SDC) | payer OTHER ==
[~2019-01-02] MED LIST changes: -DEXTROSE 5% 250ML 250 ML IV ONE; +FAMOTIDINE20 MG PO; +HYOSCYAMINE SULFATE 0.5 MG/ML INJ ONE; +IRON PO; +KRILL OIL500 MG PO; +METOCLOPRAMIDE HCL 10 MG/2ML VIAL ONE; +MULTI-VITAMIN1 EACH PO; +PANTOPRAZOLE 40 MG 10ML VIAL ONE; +PROPOFOL IV EMULSION 10 MG/ML 20 ML VIAL ONE; -PROPOFOL IV EMULSION 10 MG/ML 50 ML VIAL ONE; +VISION VITAMIN1 EAC1 PO; +VIT D PO; +VIT E PO; +VSL PROBIOTIC PO
[2019-01-02 14:34] LABS: WBC,FECAL (FECAL LACTOFERRIN) POSITIVE (NEGATIVE)
--- NOTE | 2019-01-02 18:11 | Operative Report ---
DATE OF PROCEDURE: REFERRING PHYSICIAN: PROCEDURE PERFORMED: Esophagogastroduodenoscopy with biopsies and colonoscopy with biopsies. INDICATIONS FOR ESOPHAGOGASTRODUODENOSCOPY: History of coffee-ground emesis, melena, nausea, and vomiting. INDICATIONS FOR COLONOSCOPY: Chronic diarrhea. MEDICATION: Patient was done under MAC. Please see anesthesiologist's note. PROCEDURE: With patient in left lateral decubitus position, flexible fiberoptic Olympus gastroscope was introduced into the esophagus under direct visualization without any difficulty. There were some patchy erythema noted in distal esophagus. The scope was then advanced with ease into the stomach and the mucosa overlying the body and the antrum revealed some patchy areas of atrophy and biopsies were obtained to rule out atrophic gastritis. Three ulcerations were noted in the distal body without active bleeding or stigmata of recent hemorrhage and biopsies were obtained. Pylorus was of normal contour and shape, was intubated with ease and the scope was advanced all way to the 2nd portion of the duodenum. Some folds appeared somewhat flattened and some were somewhat scalloped and biopsies were obtained to rule out sprue. The scope was then withdrawn back into the stomach and retroflexed and mucosa overlying the fundus and the cardia appeared to be within normal limits. The scope was then straightened out. The stomach was decompressed. The scope was subsequently withdrawn. Patient tolerated the procedure well. IMPRESSION 1. Distal esophagitis, mild. 2. Rule out atrophic gastritis. 3. Gastric ulcers distal body without active bleeding or stigmata of recent hemorrhage biopsied. 4. Rule out sprue. PLAN: Follow up histology. Increase Protonix to 40 mg 1 p.o. a.c. b.i.d. Continue Carafate 1 gram p.o. a.c. t.i.d. and at bedtime. Add Reglan 10 mg 1 p.o. a.c. t.i.d. and at bedtime. The patient was then turned around and after adequate lubrication of the anal canal, a flexible fiberoptic Olympus colonoscope was inserted into the rectum with ease, advanced all the way to the ileocolic anastomosis site. The anastomotic site appeared intact. The scope was then advanced into the terminal ileum and biopsies were obtained. The scope was then withdrawn back into the colon. It was then withdrawn slowly and the mucosa overlying the transverse, descending, and sigmoid revealed some patchy mild inflammatory changes and random biopsies were obtained. Some diverticular disease was noted in the distal descending and the sigmoid colon. The rectum grossly appeared to be within normal limits. The scope was then retroflexed into the distal rectum and small internal hemorrhoids were noted none of which was actively bleeding. The scope was then straightened out. It was subsequently withdrawn after securing an adequate stool specimen that was sent for the appropriate stool studies. Patient tolerated the procedure well. IMPRESSION: 1. Ileocolic anastomosis, intact. 2. Rule out microscopic colitis. 3. Diverticulosis. 4. Internal hemorrhoids, none actively bleeding. PLAN: Follow up histology. Follow up stool studies. Initiate Questran 1 packet p.o. b.i.d. and Bentyl 20 mg 1 p.o. t.i.d. and VSL #3 one p.o. b.i.d. Patient might benefit from a followup colonoscopy in 5 to 10 years. Job#: [id number] [facility] cc:WAQAR BROWN M.D.
[2019-01-03 14:57] LABS: C DIFFICILE TOXIN A&B AMP PROB NEGATIVE (NEGATIVE)
--- OUTSIDE RECORDS SUMMARY | 2019-01-04 09:38 | XMS REPORT | Clinical Summary ---
Author Author [facility] Organization [facility] Address Unknown Phone Unavailable Care Team Providers Care Drying Oven Attendant Name Role Phone PCP Unavailable Allergies Not on File Medications Not on file Active Problems Not on file Encounters Care Team Description Date Type Specialty 08/12/2018 Clinical Corporate Wellness Support after 01/03/2018 Immunizations Name Dates Previously Given Next Due FLUCELVAX QUAD PF (0.5mL 08/12/2018 syringe) Social History Date Tobacco Use Types Packs/Day Years Used Never Assessed Sex Assigned at Date Recorded Not on file Industry Job Start Date Occupation Not on file Not on file Not on file Travel End Travel History Travel Start No recent travel history available. Last Filed Vital Signs Not on file Plan of Treatment Health Maintenance Due Date Last Done Comments CERVICAL CANCER SCREENING 1978 BREAST CANCER SCREENING 2007 COLON CANCER SCREENING 2007 SHINGLES VACCINES (1 of 2007 2) INFLUENZA VACCINE Completed 08/12/2018, 09/11/2015 Results Not on fileafter 01/03/2018 Insurance Payer Benefit Subscriber ID Type Phone Address Plan / Group [facility] xxxxxxxxx HMO/PPO THCARE CHOICE/CHO ICE + Advance Directives Patient has advance care planning documents on file. For more information, pleas e contact: Nato Curtis [address] [place] [address]
== END | disposition home or self-care (01) ==
LOC: OR 10:00
PROVIDERS: ATTEND Internal Medicine Gastroenterology
DX: K29.50 Unspecified chronic gastritis without bleeding (principal); K25.9 Gastric ulcer, unspecified as acute or chronic, without hemorrhage or perforation; K52.9 Noninfective gastroenteritis and colitis, unspecified; K20.9 Esophagitis, unspecified; Z98.0 Intestinal bypass and anastomosis status; K57.30 Diverticulosis of large intestine without perforation or abscess without bleeding; K64.8 Other hemorrhoids; I10 Essential (primary) hypertension; E11.9 Type 2 diabetes mellitus without complications; E78.00 Pure hypercholesterolemia, unspecified; Z88.8 Allergy status to other drugs, medicaments and biological substances; Z79.82 Long term (current) use of aspirin; Z87.891 Personal history of nicotine dependence
CPT/HCPCS: 43239; 45380; 83630; 83993; 87045; 87177; 87328; 87493; C9113; J1980; J2250; J2704; J2765; 45378

== ENCOUNTER → 2019-01-29 | Outpatient (CLI) | payer OTHER ==
[~2019-01-29] MED LIST changes: -FENTANYL CITRATE/PF 100MCG/2 ML INJ ONE; -HYOSCYAMINE SULFATE 0.5 MG/ML INJ ONE; +IOPAMIDOL 370 MG/ML 200 ML INFUS..BTL INJ ONE; -METOCLOPRAMIDE HCL 10 MG/2ML VIAL ONE; -MIDAZOLAM HCL 2 MG/2 ML VIAL ONE; -PANTOPRAZOLE 40 MG 10ML VIAL ONE; -PROPOFOL IV EMULSION 10 MG/ML 20 ML VIAL ONE; +SODIUM CHLORIDE 0.9% 50ML 50 ML ONE
[2019-01-29 17:00] LABS: BLOOD UREA NITROGEN 16 mg/dL (7-26); BUN/CREATININE RATIO 17 (6-25); CREATININE, SERUM 0.92 mg/dL (0.57-1.11); EST GLOMERULAR FILTRATION RATE > 60 ML/MIN (60-)
--- NOTE | 2019-01-29 18:17 | Diagnostic Imaging Report ---
EXAM: CT Abdomen and Pelvis WITH contrast INDICATION: ^IRRITABLE BOWEL SYNDROME W/ DIARRHEA. Diarrhea. Weight loss. Bowel resection in September 16, 2018. Pain since March. COMPARISON: CT abdomen and pelvis 09/15/2018 TECHNIQUE: Abdomen and pelvis were scanned utilizing a multidetector helical scanner from the lung base to the pubic symphysis after administration of IV contrast. Coronal and sagittal reformations were obtained. Routine protocol was performed. Scan was performed when during portal venous phase. IV CONTRAST: 100 mL of Isovue 370 ORAL CONTRAST: Water COMPLICATIONS: None RADIATION DOSE: Total DLP: 181.43 mGy*cm Estimated effective dose: (DLP x 0.015 x size factor) mSv CTDIvol has been reviewed. It is below the limits set by the Radiation Protocol Committee (RPC). Dose modulation, iterative reconstruction, and/or weight based adjustment of the mA/kV was utilized to reduce the radiation dose to as low as reasonably achievable. FINDINGS: LINES and TUBES: None. LOWER THORAX: Unremarkable HEPATOBILIARY: The liver is diffuse hypodense compared to the spleen, consistent with diffuse hepatic diffuse hepatic steatosis. No focal hepatic lesions. No biliary ductal dilation. GALLBLADDER: Gallbladder is not visualized. SPLEEN: No splenomegaly. PANCREAS: No focal masses or ductal dilatation. Peripancreatic fluid along the anterior aspect of the pancreatic neck and proximal body. ADRENALS: No adrenal nodules KIDNEYS/URETERS: Kidneys enhance symmetrically. No hydronephrosis. No cystic or solid mass lesions. No stones. GI TRACT: Postoperative changes of right hemicolectomy with anastomosis in the left abdomen. No abnormal distention, wall thickening, or evidence of bowel obstruction. Small bowel colon are diffusely filled with liquid material. Appendix is normal. PELVIC ORGANS/BLADDER: Unchanged calcified uterine fibroid measured 10.6 cm in transverse dimension. LYMPH NODES: No lymphadenopathy. VESSELS: There is severe atherosclerotic disease in the aorta and major arterial branches. PERITONEUM / RETROPERITONEUM: No free air or fluid. BONES: Unremarkable. SOFT TISSUES: Unremarkable. IMPRESSION: 1. Postoperative changes of right hemicolectomy. 2. Diffuse fluid-filled small bowel and colon, which can be seen in enteritis and colitis. 3. Diffuse hepatic steatosis. Gallbladder is no longer visualized. 4. Peripancreatic fluid, likely pancreatitis. Signed by: Dr. Michi Calabrese M.D. on 01/29/2019 6:14 PM
== END ==
LOC: CT 15:26
PROVIDERS: ATTEND Internal Medicine Gastroenterology
DX: K58.0 Irritable bowel syndrome with diarrhea (principal)
CPT/HCPCS: 36415; 74177; 82565; 84520; Q9967

== ENCOUNTER → 2019-02-23 | Outpatient (CLI) | payer OTHER ==
[~2019-02-23] MED LIST changes: -IOPAMIDOL 370 MG/ML 200 ML INFUS..BTL INJ ONE; -SODIUM CHLORIDE 0.9% 50ML 50 ML ONE
--- NOTE | 2019-02-23 15:57 | Diagnostic Imaging Report ---
EXAM: Fluoroscopic small bowel series INDICATION: Inflammatory bowel disease, status post right hemicolectomy COMPARISON: CT abdomen and pelvis 01/29/2019, CT abdomen and pelvis 09/15/2018 FINDINGS: Transport Aide radiograph shows a nonobstructive bowel gas pattern. No mass effect or organomegaly. Large central pelvic heterogeneous calcification shown to represent a degenerated fibroid on comparison CT. There is diffuse mild distention of small bowel loops with normal transit time. No obstruction or fixed stricture. The terminal ileum is not present (status post partial small bowel resection and right hemicolectomy). Fluoroscopy time: 0.4 minutes Air Kerma 6.6 mGy IMPRESSION: Diffuse mild dilatation of small bowel loops without evidence of stricture or obstruction. Status post partial small bowel resection and right hemicolectomy. Signed by: Dr. Michael Dickson M.D. on 02/23/2019 3:53 PM
== END ==
LOC: DX 10:25
PROVIDERS: ATTEND Internal Medicine Gastroenterology
DX: K52.9 Noninfective gastroenteritis and colitis, unspecified (principal)
CPT/HCPCS: 74250

== ENCOUNTER → 2019-05-05 | Day surgery (SDC) | payer OTHER ==
[~2019-05-05] MED LIST changes: +FISH OIL 1,0001 EAC2 PO; +GLUCAGON FOR INJ 1 MG VIAL ONE; +IRON SUCROSE 300 MG in SODIUM CHLORIDE 0.9% 250ML 250 ML IV ONE; +LIDOCAINE HCL 2% LOCAL INJ 5 ML SDV VIAL INJ ONE; +MIDAZOLAM HCL 2 MG/2 ML VIAL ONE; +PANTOPRAZOLE 40 MG 10ML VIAL IV ONE; +PANTOPRAZOLE 40 MG 10ML VIAL ONE; +PEPCID20 MG PO; +PHYTONADIONE 10 MG/ML AMP SC SCH; +PROPOFOL IV EMULSION 10 MG/ML 50 ML VIAL ONE; +QUESTRAN PACKET4 GM PO; +VIT B12 PO; +ZOFRAN4 MG PO
--- OUTSIDE RECORDS SUMMARY | 2019-05-05 06:12 | XMS REPORT | Clinical Summary ---
Author Author [facility] Organization [facility] Address Unknown Phone Unavailable Care Team Providers Care Pattern Fitter Name Role Phone PCP Unavailable Allergies Not on File Medications Not on file Active Problems Not on file Encounters Care Team Description Date Type Specialty 08/12/2018 Clinical Corporate Wellness Support after 05/04/2018 Immunizations Name Dates Previously Given Next Due [...] Health Maintenance Due Date Last Done Comments BREAST CANCER SCREENING 2007 COLONOSCOPY SCREENING 2007 SHINGLES VACCINES (#1) 2007 INFLUENZA VACCINE 06/24/2019 08/12/2018, 09/11/2015 Results Not on fileafter 05/04/2018 Insurance Type Payer Benefit Subscriber ID Effective Phone Address Plan / Dates Group HMO/PPO [facility] xxxxxxxxx [id number] THCARE resent CHOICE/CHO ICE + Advance Directives Patient has advance care planning documents on file. For more information, garima e contact: Nato Curtis [address] [place] [address]
--- OUTSIDE RECORDS SUMMARY | 2019-05-05 06:13 | XMS REPORT | Continuity of Care Document ---
Author Author [facility] Interface Address Unknown Phone Unavailable Problems Problem Status Onset Date Classification Date Reported Comments Source Medications Medication Details Route Status Patient Instructions Ordering Provider Order Date Source Dicyclomine Hcl 20 Mg Tablet Every 8 Hours Active [facility] 07/01/2018 [facility] Pantoprazole Sodium (Protonix) 40 Mg Tablet.dr Every 12 Hours Active [facility] 07/01/2018 [facility] Prednisone 20 Mg Tab Every 12 Hours Active [facility] 07/01/2018 [facility] Sucralfate (Carafate) 1 Gm Tablet Before Meals And At Bedtime Active [facility] 07/01/2018 [facility] Lisinopril 10 Mg Tablet, 40 Mg Oral Twice A Day Active 07/01/2018 [facility] Colestipol Hcl,Micronized (Colestipol Hcl) 1 Gm Tablet, 1 Gm Oral 5 Times Daily Active 06/26/2018 [facility] Metformin Hcl 500 Mg Tablet, 1000 Mg Oral Twice A Day Active 06/26/2018 [facility] Amlodipine Besylate 5 Mg Tablet Daily Active [facility] Atenolol (Tenormin) 50 Mg Tablet Bedtime Active [facility] Basaglar Insulin Pen Bedtime Active [facility] Colestipol Hcl,Micronized (Colestipol Hcl) 1 Gm Tablet Before Breakfast Active [facility] Glimepiride 2 Mg Tablet Bedtime Active [facility] Losartan/Hydrochlorothiazide (Losartan-Hctz 100-25 Mg Tab) 1 Each Tablet Daily Active [facility] Lovastatin 20 Mg Tablet Daily Active [facility] Allergies, Adverse Reactions, Alerts Substance Category Reaction Severity Reaction type Status Date Reported Comments Source Atorvastatin Unknown Allergy to Substance Active 06/26/2018 [facility] Immunizations Immunization Date Given Site Status Last Updated Comments Source Results Order Name Results Value Reference Range Date Interpretation Comments Source Automated blood hematocrit (volume fraction) Automated blood hematocrit (volume fraction) 31.6 34.2 - 44.1 07/01/2018 [facility] Blood cobalamin (vitamin B12) measurement (mass/volume) Blood cobalamin (vitamin B12) measurement (mass/volume) 560 213 - 816 07/01/2018 [facility] Blood hemoglobin measurement (moles/volume) Blood hemoglobin measurement (moles/volume) 10.7 12.0 - 16.0 07/01/2018 [facility] Serum or plasma potassium measurement (moles/volume) Serum or plasma potassium measurement (moles/volume) 4.0 3.5 - 5.1 07/01/2018 [facility] Capillary blood glucose measurement by glucometer (mass/volume) Capillary blood glucose measurement by glucometer (mass/volume) 197 70 - 120 06/30/2018 [facility] Automated blood basophil count (count/volume) Automated blood basophil count (count/volume) 0.1 0.0 - 0.1 06/30/2018 [facility] Automated blood basophil count as percentage of total leukocytes Automated blood basophil count as percentage of total leukocytes 0.5 0.0 - 1.0 06/30/2018 [facility] Automated blood eosinophil count Automated blood eosinophil count 0.2 0.0 - 0.4 06/30/2018 [facility] Automated blood eosinophil count as percentage of total leukocytes Automated blood eosinophil count as percentage of total leukocytes 1.7 0.0 - 6.0 06/30/2018 [facility] Automated blood lymphocyte count as percentage ot total leukocytes Automated blood lymphocyte count as percentage ot total leukocytes 18.3 18.0 - 39.1 06/30/2018 [facility] Automated blood monocyte count as percentage of total leukocytes Automated blood monocyte count as percentage of total leukocytes 9.8 4.4 - 11.3 06/30/2018 [facility] Automated blood neutrophil count Automated blood neutrophil count 9.2 2.1 - 6.9 06/30/2018 [facility] Automated blood platelet count (count/volume) Automated blood platelet count (count/volume) 376 140 - 360 06/30/2018 [facility] Automated blood segmented neutrophil count as percentage of total leukocytes Automated blood segmented neutrophil count as percentage of total leukocytes 69.1 38.7 - 80.0 06/30/2018 [facility] Automated erythrocyte mean corpuscular hemoglobin (mass per erythrocyte) Automated erythrocyte mean corpuscular hemoglobin (mass per erythrocyte) 27.3 28 - 32 06/30/2018 [facility] Automated erythrocyte mean corpuscular hemoglobin concentration measurement (mass/volume) Automated erythrocyte mean corpuscular hemoglobin concentration measurement (mass/volume) 34.2 31 - 35 06/30/2018 [facility] Automated erythrocyte mean corpuscular volume Automated erythrocyte mean corpuscular volume 79.7 81 - 99 06/30/2018 [facility] Blood erythrocytes automated count (number/volume) Blood erythrocytes automated count (number/volume) 3.74 3.6 - 5.1 06/30/2018 [facility] Blood leukocytes automated count (number/volume) Blood leukocytes automated count (number/volume) 13.31 4.8 - 10.8 06/30/2018 [facility] Blood lymphocytes count (number/volume) Blood lymphocytes count (number/volume) 2.4 1.0 - 3.2 06/30/2018 [facility] Blood monocytes automated count (number/volume) Blood monocytes automated count (number/volume) 1.3 0.2 - 0.8 06/30/2018 [facility] Estimated glomerular filtration rate (GFR) determination Estimated glomerular filtration rate (GFR) determination null 60 06/30/2018 [facility] Glucose measurement Glucose measurement 92 74 - 118 06/30/2018 [facility] Plasma globulin measurement (mass/volume) Plasma globulin measurement (mass/volume) 3.3 2.3 - 3.5 06/30/2018 [facility] Serum or plasma alanine aminotransferase measurement (enzymatic activity/volume) Serum or plasma alanine aminotransferase measurement (enzymatic activity/volume) 21 0 - 55 06/30/2018 [facility] Serum or plasma albumin measurement (mass/volume) Serum or plasma albumin measurement (mass/volume) 2.5 3.5 - 5.0 06/30/2018 [facility] Serum or plasma albumin/globulin mass ratio Serum or plasma albumin/globulin mass ratio 0.8 0.8 - 2.0 06/30/2018 [facility] Serum or plasma alkaline phosphatase measurement (enzymatic activity/volume) Serum or plasma alkaline phosphatase measurement (enzymatic activity/volume) 56 40 - 150 06/30/2018 [facility] Serum or plasma anion gap Serum or plasma anion gap 13.3 8 - 16 06/30/2018 [facility] Serum or plasma calcium measurement (mass/volume) Serum or plasma calcium measurement (mass/volume) 8.5 8.4 - 10.2 06/30/2018 [facility] Serum or plasma carbon dioxide, total measurement (moles/volume) Serum or plasma carbon dioxide, total measurement (moles/volume) 22 22 - 29 06/30/2018 [facility] Serum or plasma chloride measurement (moles/volume) Serum or plasma chloride measurement (moles/volume) 102 98 - 107 06/30/2018 [facility] Serum or plasma creatinine measurement (mass/volume) Serum or plasma creatinine measurement (mass/volume) 0.68 0.57 - 1.11 06/30/2018 [facility] Serum or plasma protein measurement (mass/volume) Serum or plasma protein measurement (mass/volume) 5.8 6.5 - 8.1 06/30/2018 [facility] Serum or plasma sodium measurement (moles/volume) Serum or plasma sodium measurement (moles/volume) 134 136 - 145 06/30/2018 [facility] Serum or plasma total bilirubin measurement (mass/volume) Serum or plasma total bilirubin measurement (mass/volume) 0.9 0.2 - 1.2 06/30/2018 [facility] Serum or plasma urea nitrogen measurement (mass/volume) Serum or plasma urea nitrogen measurement (mass/volume) 6 7 - 26 06/30/2018 [facility] Serum or plasma urea nitrogen/creatinine mass ratio Serum or plasma urea nitrogen/creatinine mass ratio 9 6 - 25 06/30/2018 [facility] Red Cell Distribution Width 16.2 11.7 - 14.4 06/30/2018 [facility] IM GRANULOCYTES % 0.6 0.0 - 1.0 06/30/2018 [facility] Absolute Immature Granulocyte (auto 0.08 0 - 0.1 06/30/2018 [facility] Aspartate Amino Transf (AST/SGOT) 16 5 - 34 06/30/2018 [facility] Erythrocyte sedimentation rate by Westergren method Erythrocyte sedimentation rate by Westergren method 70 0 - 20 06/29/2018 [facility] Serum or plasma C reactive protein measurement (mass/volume) Serum or plasma C reactive protein measurement (mass/volume) 52.3 0.0 - 4.9 06/29/2018 [facility] Automated urine sediment leukocyte count by microscopy (number/high power field) Automated urine sediment leukocyte count by microscopy (number/high power field) null 0 - 5 06/29/2018 [facility] Bacteria detection in urine sediment by light microscopy Bacteria detection in urine sediment by light microscopy FEW NONE 06/29/2018 [facility] Clostridium difficile A and B toxin assay Clostridium difficile A and B toxin assay NEGATIVE NEGATIVE 06/29/2018 [facility] Epithelial cells detection in urine sediment by light microscopy Epithelial cells detection in urine sediment by light microscopy FEW NONE 06/29/2018 [facility] Erythrocytes detection in urine sediment by light microscopy Erythrocytes detection in urine sediment by light microscopy null 0 - 5 06/29/2018 [facility] Specific gravity of Urine by Test strip Specific gravity of Urine by Test strip 1.015 1.010 - 1.025 06/29/2018 [facility] Stool lactoferrin detection Stool lactoferrin detection POSITIVE NEGATIVE 06/29/2018 [facility] Transitional cells detection in urine sediment by light microscopy Transitional cells detection in urine sediment by light microscopy FEW NONE 06/29/2018 [facility] Urine clarity Urine clarity CLEAR CLEAR 06/29/2018 [facility] Urine color determination Urine color determination YELLOW YELLOW 06/29/2018 [facility] Urine erythrocytes detection Urine erythrocytes detection 4+ NEGATIVE 06/29/2018 [facility] Urine glucose detection Urine glucose detection NEGATIVE NEGATIVE 06/29/2018 [facility] Urine ketones detection by automated test strip Urine ketones detection by automated test strip TRACE NEGATIVE 06/29/2018 [facility] Urine leukocyte esterase detection by dipstick Urine leukocyte esterase detection by dipstick NEGATIVE NEGATIVE 06/29/2018 [facility] Urine nitrite detection Urine nitrite detection NEGATIVE NEGATIVE 06/29/2018 [facility] Urine pH measurement by automated test strip Urine pH measurement by automated test strip 6 5 - 7 06/29/2018 [facility] Urine protein measurement by test strip (mass/volume) Urine protein measurement by test strip (mass/volume) TRACE NEGATIVE 06/29/2018 [facility] Urine total bilirubin measurement (mass/volume) Urine total bilirubin measurement (mass/volume) NEGATIVE NEGATIVE 06/29/2018 [facility] Urine urobilinogen measurement by test strip (mass/volume) Urine urobilinogen measurement by test strip (mass/volume) 0.2 0.2 - 1 06/29/2018 [facility] Serum or plasma ferritin measurement (mass/volume) Serum or plasma ferritin measurement (mass/volume) 513.46 4.63 - 204.00 06/28/2018 [facility] Serum or plasma iron binding capacity measurement (mass/volume) Serum or plasma iron binding capacity measurement (mass/volume) 190 261 - 478 06/28/2018 [facility] Serum or plasma iron measurement (mass/volume) Serum or plasma iron measurement (mass/volume) 15 50 - 170 06/28/2018 [facility] Serum or plasma iron saturation measurement (mass fraction) Serum or plasma iron saturation measurement (mass fraction) 8 15 - 50 06/28/2018 [facility] Serum or plasma transferrin measurement (mass/volume) Serum or plasma transferrin measurement (mass/volume) 136 180 - 382 06/28/2018 [facility] Stool gastrointestinal hemoglobin detection Stool gastrointestinal hemoglobin detection POSITIVE NEGATIVE 06/27/2018 [facility] Serum or plasma cholesterol in HDL measurement (mass/volume) Serum or plasma cholesterol in HDL measurement (mass/volume) 39 40 - 60 06/27/2018 [facility] Serum or plasma cholesterol in LDL measurement (mass/volume) Serum or plasma cholesterol in LDL measurement (mass/volume) 66 60 - 130 06/27/2018 [facility] Serum or plasma cholesterol measurement (mass/volume) Serum or plasma cholesterol measurement (mass/volume) 129 0 - 199 06/27/2018 [facility] Serum or plasma creatine kinase MB measurement (mass/volume) Serum or plasma creatine kinase MB measurement (mass/volume) 3.30 0 - 5.0 06/27/2018 [facility] Serum or plasma creatine kinase measurement (enzymatic activity/volume) Serum or plasma creatine kinase measurement (enzymatic activity/volume) 59 29 - 168 06/27/2018 [facility] Serum or plasma thyrotropin measurement by detection limit <=0.005 miu/l (units/volume) Serum or plasma thyrotropin measurement by detection limit <=0.005 miu/l (units/volume) 0.846 0.350 - 4.940 06/27/2018 [facility] Serum or plasma total cholesterol/cholesterol in HDL mass ratio Serum or plasma total cholesterol/cholesterol in HDL mass ratio 3.3 3.0 - 3.6 06/27/2018 [facility] Serum or plasma triglyceride measurement (mass/volume) Serum or plasma triglyceride measurement (mass/volume) 118 0 - 149 06/27/2018 [facility] Troponin I measurement by highly sensitive enzyme immunoassay Troponin I measurement by highly sensitive enzyme immunoassay 0.349 0 - 0.300 06/27/2018 [facility] Hemoglobin A1c Percent 5.6 4.0 - 7.0 06/27/2018 [facility] Serum or plasma conjugated bilirubin measurement (mass/volume) Serum or plasma conjugated bilirubin measurement (mass/volume) 0.5 0.0 - 0.5 06/26/2018 [facility] Vital Signs Vital Sign Value Date Comments Source Encounters Location Location Details Encounter Type Encounter Number Reason For Visit Attending Provider ADM Date DC Date Status Source Discharged Inpatient [id number] CASSY VIRK MD 06/29/2018 07/01/2018 [facility] Procedures Procedure Code Date Perfomer Comments Source EGD with biopsy [id number] 06/30/2018 [place] [facility]
--- OUTSIDE RECORDS SUMMARY | 2019-05-05 06:13 | XMS REPORT | Clinical Summary ---
Author Author [facility] Address Unknown Phone Unavailable Care Team Providers Care Typewriter Assembler Name Role Phone PCP Unavailable Allergies Comments Active Allergy Reactions Severity Noted Date States ensymes high Atorvastatin Other (See 09/11/2009 Comments) Stomach pain Iron Other (See 03/02/2019 Comments) Medications End Date Status Medication Sig Dispensed Refills Start Date Active AMLODIPINE BESYLATE, Take 5 mg by 0 BULK, MISC mouth daily. 8 Active aspirin 81 MG EC tablet Take 81 mg by 0 mouth daily. Active atenolol (TENORMIN) 50 MG Take 50 mg by 0 tablet mouth daily. Active losartan-hydrochlorothiaz Take 100 mg 0 joana (HYZAAR) 100-12.5 mg by mouth 8 per tablet daily. Active lisinopril Take 20 mg by 0 (PRINIVIL,ZESTRIL) 10 MG mouth 2 (two) 8 tablet times daily. Active lovastatin (MEVACOR) 20 Take 20 mg by 0 MG tablet mouth daily. 8 Active pantoprazole (PROTONIX) Take 40 mg by 0 40 MG tablet mouth daily. 8 Active sucralfate (CARAFATE) 1 Take 1 g by 0 gram tablet mouth daily. 8 Active vitamin E 400 UNIT Take 400 mg 0 capsule by mouth 0 daily. Active dicyclomine (BENTYL) 20 Take 20 mg by 0 mg tablet mouth daily. 9 Active colestipol (COLESTID) 5 Take 4 g by 0 gram granules mouth 2 (two) times daily. Active famotidine (PEPCID) 20 MG Take 40 mg by 0 tablet mouth nightly. Active Lactobac no.41/Bifidobact Take 1 tablet 0 no.7 (PROBIOTIC-10 ORAL) by mouth. Active omega 6-ddm-khk-fish oil Take 1,000 mg 0 (FISH OIL) 1,000 mg (120 by mouth mg-180 mg) Cap daily. Active cholecalciferol (VITAMIN Take 1,000 0 D3) 1,000 unit tablet Units by mouth daily. Status Hospital, Clinic, or Ordered Dose Route Frequency Start End Date Other Facility Date Administered Medication Ended acetaminophen (TYLENOL) 650 mg Oral Once 03/11/20 tablet 650 mg 19 9 Ended heparin (PF) injection 500 Units IV Once as needed 03/11/20 syringe 500 Units 19 9 Ended diphenhydrAMINE 25 mg IV Once 03/11/20 (BENADRYL) injection 25 19 9 mg Ended sodium chloride 0.9% (NS) IV Once 03/11/20 infusion 19 9 Ended sodium chloride 0.9% (NS) IV Once 03/11/20 infusion 19 9 Active Problems Not on file Encounters Care Team Description Date Type Specialty Bibi Vega MD Marcus, Shannon, RN Iron deficiency anemia secondary to inadequate dietary iron intake (Primary Dx) 03/11/2019 Procedure visit Oncology Bibi Vega MD Iron deficiency anemia, unspecified iron deficiency anemia type (Primary Dx) 03/10/2019 Procedure visit Oncology after 05/04/2018 Social History Date Tobacco Use Types Packs/Day Years Used Never Assessed Sex Assigned at Date Recorded Not on file Industry Job Start Date Occupation Not on file Not on file Not on file Travel End Travel History Travel Start No recent travel history available. Last Filed Vital Signs Time Taken Vital Sign Reading 03/11/2019 4:35 PM CDT Blood Pressure 129/56 03/11/2019 4:35 PM CDT Pulse 53 03/11/2019 4:35 PM CDT Temperature 36.6 C (97.9 F) 03/11/2019 4:35 PM CDT Respiratory Rate 16 03/11/2019 4:35 PM CDT Oxygen Saturation 100% - Inhaled Oxygen - Concentration - Weight - - Height - - Body Mass Index - Plan of Treatment Not on file Procedures Comments Procedure Name Priority Date/Time Associated Diagnosis TRANSFUSION SERVICE 03/13/2019 REPORT - SCAN 6:03 PM CDT PREPARE LEUKO-REDUCED RBC Routine 03/12/2019 Iron deficiency anemia 11:54 PM CDT secondary to inadequate dietary iron intake TRANSFUSION SERVICE 03/11/2019 REPORT - SCAN 6:03 PM CDT TRANSFUSION SERVICE 03/11/2019 REPORT - SCAN 6:03 PM CDT TRANSFUSE LEUKO-REDUCED Routine 03/11/2019 Iron deficiency anemia RED BLOOD CELLS 3:35 PM CDT secondary to inadequate dietary iron intake TRANSFUSE LEUKO-REDUCED Routine 03/11/2019 Iron deficiency anemia RED BLOOD CELLS 12:37 PM CDT secondary to inadequate dietary iron intake TYPE AND SCREEN, Routine 03/10/2019 Iron deficiency anemia, AUTOMATED 1:40 PM CDT unspecified iron deficiency anemia type after 05/04/2018 Results * TRANSFUSION SERVICE REPORT - SCAN (03/13/2019 6:03 PM CDT) Only the most recent of 3 results within the time period is included. Narrative Performed At * Prepare Leuko-Red RBC (03/12/2019 11:54 PM CDT) Unit ABO O Pos [place] UNIT NUMBER [id number] [place] Status TX_TIMEINCHART [facility] [place] Blood Bank Product RED BLOOD CELLS SAF[place]ACE [place] PRODUCT CODE [id number] SAFET[place] [place] Unit ABO O Pos SAFETR[place] TX UNIT NUMBER [id number] [facility] [place] Status TX_TIMEINCHART [facility] [place] Blood Bank Product RED BLOOD CELLS [place] PRODUCT CODE [id number] SAFET[place]ACE [place] CROSSMATCH COMPATIBLE SAF[place] CROSSMATCH COMPATIBLE S[place]ET[place] Specimen Other Performing Organization Address City/[facility] Phone Number [place] * Transfuse Leuko-Red RBC (03/11/2019 3:35 PM CDT) Only the most recent of 3 results within the time period is included. * Type and screen, automated (03/10/2019 1:40 PM CDT) ABO/RH AUTOMATED (BEAKER) A POSITIVE [facility] Ab Scrn NEGATIVE [facility] Specimen Blood Performing Organization Address City/[facility]/Zipcode Phone Number [facility] [address] [place] [address] [phone] [facility] after 05/04/2018 Insurance Payer Benefit Subscriber ID Type Phone Address Plan / Group [employer] [facility] [place] [employer] x[place] HMO/POS CARE POS SELECT CHOICE
[2019-05-05 14:00] VITALS: BP 134/60
--- NOTE | 2019-05-05 15:26 | Operative Report ---
DATE OF PROCEDURE: 05/05/2019 SURGEON: Santana Levine MD INDICATIONS FOR PROCEDURE: Iron-deficiency anemia, diarrhea, status post small bowel resection for ischemic bowel. PROCEDURE: Enteroscopy with biopsies and fulguration of arteriovenous malformation with APC probe. MEDICATIONS: The patient was done under MAC, please see anesthesiologist's note. PROCEDURE IN DETAIL: With the patient in left lateral decubitus position, a flexible fiberoptic pediatric colonoscope was inserted into the esophagus under direct visualization without any difficulty. The esophagus appeared to be within normal limits. The scope was then advanced with ease into the stomach and multiple gastric ulcers were noted in the antrum as well as the body. There was no active bleeding. ? two AVMs were noted in the fundus of the stomach and those were fulgurated with the APC probe. The pylorus was then intubated and the scope was advanced all the way to approximately 160 cm from the incisors. Scattered ulcerations were noted throughout the duodenum and the proximal jejunum. There was no active bleeding noted. One ulcer in the jejunum was biopsied. ? AVMs were noted, one in the jejunum and one in the duodenum and those were fulgurated with the APC probe. The scope was subsequently withdrawn. The patient tolerated procedure well. IMPRESSION: 1. Enteroscopy to approximately 160 cm from the incisors. 2. Normal esophagus. 3. Gastric ulcers, multiple, body and antrum without active bleeding. 4. ? arteriovenous malformations, fundus, fulgurated with APC probe. 5. Scattered duodenal and jejunal ulcers without active bleeding. One jejunal ulcer biopsied. 6. ? arteriovenous malformations duodenum and jejunal fulgurated with APC probe. PLAN: Follow up histology. Increase Carafate to 2 g p.o. a.c. t.i.d. and q.h.s. Start Dexilant 60 mg one p.o. a.c. b.i.d. Check gastrin level. IBD panel, CRP, and sedimentation rate. Consider medium chain triglyceride supplements and low-fat diet. If the patient is no better after one week of therapy, we will consider admission for TPN. Santana Levine MD [facility] [place]/MODL /[id number] cc: Jolene Garcia MD
== END | disposition home or self-care (01) ==
LOC: OR 06:05
PROVIDERS: ATTEND Internal Medicine Gastroenterology
DX: D50.9 Iron deficiency anemia, unspecified (principal); K25.9 Gastric ulcer, unspecified as acute or chronic, without hemorrhage or perforation; K28.9 Gastrojejunal ulcer, unspecified as acute or chronic, without hemorrhage or perforation; R19.7 Diarrhea, unspecified; E78.5 Hyperlipidemia, unspecified; E11.22 Type 2 diabetes mellitus with diabetic chronic kidney disease; I12.9 Hypertensive chronic kidney disease with stage 1 through stage 4 chronic kidney disease, or unspecified chronic kidney disease; N18.9 Chronic kidney disease, unspecified; Z88.8 Allergy status to other drugs, medicaments and biological substances; Z01.810 Encounter for preprocedural cardiovascular examination; Z79.82 Long term (current) use of aspirin; Z87.891 Personal history of nicotine dependence
CPT/HCPCS: 36415; 44361; 44369; 82607; 82941; 85651; 86140; 86256; 86671; 93005; C9113; J1610; J1756; J2001; J2250; J2704; J3430; J7050; 43239; 43270

== ENCOUNTER 2019-09-06 05:01 | Inpatient (IN) | payer OTHER ==
[~2019-09-06] VITALS: Ht 160 cm; Wt 60.3 kg
[2019-09-06] VITALS (10 sets, daily range): BP systolic 84–114; BP diastolic 30–46
[~2019-09-06 05:01] MED LIST changes: -GLUCAGON FOR INJ 1 MG VIAL ONE; -IRON SUCROSE 300 MG in SODIUM CHLORIDE 0.9% 250ML 250 ML IV ONE; -LIDOCAINE HCL 2% LOCAL INJ 5 ML SDV VIAL INJ ONE; -MIDAZOLAM HCL 2 MG/2 ML VIAL ONE; -PANTOPRAZOLE 40 MG 10ML VIAL IV ONE; -PANTOPRAZOLE 40 MG 10ML VIAL ONE; -PHYTONADIONE 10 MG/ML AMP SC SCH; -PROPOFOL IV EMULSION 10 MG/ML 50 ML VIAL ONE
[2019-09-06] MEDS ORDERED: ONDANSETRON HCL INJ 2MG/ML 2ML 2 MG/ML VIAL IV STA ×2 (05:10→08:12)
[2019-09-06] MEDS ORDERED: MORPHINE SULFATE INJ 4 MG/ML INJ 1ML IV ONE (05:15)
[2019-09-06] MEDS ORDERED: DIATRIZOATE MEGL/DIATRIZOA SOD 30 ML BTL PO ONE (05:34)
[2019-09-06 05:52] LABS: BASOPHILS # (AUTO) 0.1 (0.0-0.1); BASOPHILS % 0.3 % (0.0-1.0); EOSINOPHILS # (AUTO) 0.1 (0.0-0.4); EOSINOPHILS % 0.6 % (0.0-6.0); HEMATOCRIT 35.7 % (34.2-44.1); HEMOGLOBIN 11.1 g/dL (12.0-16.0); LYMPHOCYTES # (AUTO) 0.3 (1.0-3.2); LYMPHOCYTES % 1.7 % (18.0-39.1); MEAN CORPUSCULAR HEMOGLOBIN 28.8 pg (28-32); MEAN CORPUSCULAR HGB CONC 31.1 g/dL (31-35); MEAN CORPUSCULAR VOLUME 92.7 fL (81-99); MONOCYTES # (AUTO) 0.7 (0.2-0.8); MONOCYTES % 4.2 % (4.4-11.3); NEUTROPHILS # (AUTO) 16.1 (2.1-6.9); NEUTROPHILS % 92.6 % (38.7-80.0); PLATELET COUNT 340 x10e3/uL (140-360); RED BLOOD COUNT 3.85 x10e6/uL (3.6-5.1); RED CELL DISTRIBUTION WIDTH 13.2 % (11.7-14.4)
[2019-09-06 05:56] LABS: CLARITY,URINE CLOUDY (CLEAR); COLOR,URINE YELLOW (YELLOW)
[2019-09-06 05:57] LABS: BILIRUBIN,URINE NEGATIVE (NEGATIVE); KETONES,URINE NEGATIVE (NEGATIVE); LEUKOCYTE ESTERASE ,URINE NEGATIVE (NEGATIVE); NITRITE,URINE NEGATIVE (NEGATIVE); PROTEIN,URINE DIPSTICK 3+ (NEGATIVE); URINE UROBILINOGEN 0.2 mg/dL (0.2 - 1)
[2019-09-06 06:00] LABS: AMORPHOUS SEDIMENT,URINE MANY (FEW); BACTERIA,URINE MANY /HPF; EPITHELIAL CELLS,URINE MODERATE /LPF; RBC,URINE 0-5 /HPF (0-5)
[2019-09-06 06:04] LABS: INR 1.08; PROTHROMBIN TIME 14.5 seconds (11.9-14.5)
[2019-09-06 06:05] LABS: PARTIAL THROMBOPLASTIN TIME 29.1 seconds (23.8-35.5)
[2019-09-06 06:12] LABS: ALBUMIN 3.8 g/dL (3.5-5.0); ALBUMIN/GLOBULIN RATIO 0.9 (0.8-2.0); ANION GAP 15.4 mmol/L (8-16); CALCIUM 9.6 mg/dL (8.4-10.2); CREATININE, SERUM 1.11 mg/dL (0.57-1.11); POTASSIUM 4.4 mmol/L (3.5-5.1)
[2019-09-06] MEDS ORDERED: HYDROMORPHONE 1MG/1ML INJ IV STA ×2 (06:12→12:29)
[2019-09-06] MEDS ORDERED: PIPER-TAZ 3.375 GM 50 ML IV ONE (06:15)
[2019-09-06 06:23] LABS: AMYLASE 109 U/L (25-125); LIPASE 26 U/L (8-78)
--- NOTE | 2019-09-06 07:05 | NUR ---
Other than discomfort from pain, pt expressed no spiritual or emotional concerns at this time. [facility] informed pt of availability of glass belt sander and how to reach glass belt sander, if needed. [facility] Department O: [phone] Pager: [phone] ([phone] calling from)
[2019-09-06] MEDS ORDERED: MORPHINE SULFATE 2 MG/ML SYR 1ML IV STA (08:12)
--- NOTE | 2019-09-06 08:55 | Diagnostic Imaging Report ---
CT of the abdomen and pelvis, without contrast, 09/06/2019. History: Epigastric abdominal pain. Comparison: 01/29/2019. Technique: Multidetector CT scanning of the abdomen and pelvis was performed from the level of the lung bases to the inferior pubic rami without intravenous contrast. Oral contrast was administered. Coronal and sagittal multiplanar reformations were obtained. RADIATION DOSE: Total DLP: 253 mGy*cm Dose modulation, iterative reconstruction, and/or weight based adjustment of the mA/kV was utilized to reduce the radiation dose to as low as reasonably achievable. Discussion: Examination is limited without contrast. Lung bases: There is bibasilar atelectasis. Abdomen: Free air and fluid are present anteriorly within the abdomen. Oral contrast is seen within the abdomen and small bowel down to the mid abdomen. No oral contrast is seen extraluminally. There are no dilated small bowel loops but there appears to be thickening of small bowel loops in the lower mid abdomen. The mid transverse colon is air-filled and distended measuring up to 6.6 cm in diameter. The descending colon is nondistended. Scattered colonic diverticuli are present. There is mild diffuse anasarca. A 2 mm stone is noted within the lower pole of the right kidney. There is no evidence of hydronephrosis. The liver, biliary tree, spleen, pancreas, adrenal glands, and kidneys are otherwise unremarkable. The abdominal aorta is densely calcified but within normal limits for size. There is no evidence of adenopathy. Pelvis: The bladder is unremarkable. Large densely calcified uterine fibroid is again noted. There is no evidence of free fluid or adenopathy. Bones and soft tissues: Degenerative changes are present throughout the lumbar spine without evidence of lytic or sclerotic lesion. IMPRESSION: 1. Free air and fluid are present consistent with bowel perforation. Site of perforation is uncertain, but there appears to be mild thickening of small bowel loops in the lower mid abdomen. There is mild dilatation of the transverse colon and scattered colonic diverticuli. The findings were discussed with Dr. Alvarez at 0850 on 09/06/2019. 2. Large calcified uterine fibroid is again noted. Signed by: Javier Beverly on 09/06/2019 8:51 AM
[2019-09-06] MEDS ORDERED: SODIUM CHLORIDE 0.9% 1000ML 1,000 ML IV ONE (09:45)
[2019-09-06] MEDS ORDERED: HYDROMORPHONE 1MG/1ML INJ IV PRN ×2 (09:45→17:00)
[2019-09-06] MEDS ORDERED: ONDANSETRON HCL INJ 2MG/ML 2ML 2 MG/ML VIAL IV PRN (09:45)
[2019-09-06] MEDS ORDERED: HYDRALAZINE HCL 20 MG/ML VIAL IV PRN (13:45)
[2019-09-06] MEDS ORDERED: PIPER-TAZ 3.375 GM 50 ML IV SCH (14:00)
[2019-09-06] MEDS ORDERED: IOPAMIDOL 370 MG/ML 200 ML INFUS..BTL INJ ONE (14:22)
[2019-09-06] MEDS ORDERED: HEPARIN SOD/SOD CHLORIDE 1,000 ML ONE (14:52)
[2019-09-06] MEDS: FAMOTIDINE 20 MG/2 ML VIAL IV SCH (17:00)
[2019-09-06] MEDS: ATENOLOL 50 MG TAB PO SCH (17:00)
[2019-09-06] MEDS ORDERED: SUCCINYLCHOLINE 200 MG/10 ML SYR ONE (18:03)
[2019-09-06] MEDS ORDERED: SEVOFLURANE INHAL SOLN 250 ML PEN BTL ONE (18:03)
[2019-09-06] MEDS ORDERED: ETOMIDATE 2 MG/ML 10 ML INJ IV ONE (18:03)
[2019-09-06] MEDS ORDERED: CEFOXITIN SOD 1 GM VIAL ONE (18:03)
[2019-09-06] MEDS ORDERED: ROCURONIUM BROMIDE 10 MG/ML 5ML VIAL ONE (18:03)
[2019-09-06] MEDS ORDERED: ONDANSETRON HCL INJ 2MG/ML 2ML 2 MG/ML VIAL ONE (18:03)
[2019-09-06] MEDS ORDERED: KETOROLAC TROMETHAMINE 30 MG/ML VIAL ONE (18:03)
[2019-09-06] MEDS ORDERED: PROPOFOL IV EMULSION 10 MG/ML 20 ML VIAL ONE (18:03)
[2019-09-06] MEDS ORDERED: FENTANYL CITRATE/PF 100MCG/2 ML INJ ONE (18:13)
[2019-09-06] MEDS ORDERED: MIDAZOLAM HCL 2 MG/2 ML VIAL ONE (18:13)
[2019-09-06] MEDS: SODIUM CHLORIDE 0.9% 1000ML 1,000 ML IV SCH (18:26)
[2019-09-06] MEDS: PIPER-TAZ 3.375 GM 50 ML IV SCH ×2 (18:28→23:40)
--- NOTE | 2019-09-06 18:38 | Diagnostic Imaging Report ---
Examination: Single AP view of the chest. COMPARISON: CT abdomen and pelvis 09/06/2019 INDICATION: Status post central line placement IMPRESSION: 1. Lines and Tubes: Right IJ line has distal tip projecting in the distal SVC/cavoatrial junction. Enteric tube is noted on the left hemidiaphragm, however, tip is not visualized. 2. Lungs are well-inflated. Bilateral interstitial opacities extending from the raphael associated with interstitial edema. No consolidation. No effusion. 3. Enlarged cardiac silhouette. Central pulmonary venous congestion. 4. No acute bony abnormalities. Signed by: Dr. Zach eMmbreno M.D. on 09/06/2019 6:35 PM
[2019-09-06] MEDS: SODIUM CHLORIDE 0.9% 250ML IRRIG IR SCH ×2 (18:50→21:31)
[2019-09-06] MEDS: PANTOPRAZOLE 40 MG 10ML VIAL IV SCH (18:50)
[2019-09-06 19:06] LABS: CREATINE KINASE MB 1.1 ng/mL (0-5.0)
--- NOTE | 2019-09-06 19:12 | Consultation ---
DATE OF CONSULTATION: 09/06/2019 Cardiac Consultation REASON FOR CONSULTATION: Urgent consultation in patient with perforated small bowel and need for urgent surgery. HISTORY OF PRESENT ILLNESS: This is a 64-year-old lady, who is known with hypertension, hyperlipidemia, diabetes mellitus, major GI problem was ulcer in June 2018 and she had necrotic bowel and surgery in August 2018. Following this urgent bowel surgery, the patient continued to have diarrhea. She lost quite a lot of weight. However, now her bowel movement are better and there is stool and they are still frequent and she is followed by GI Service, Dr. Levine and Dr. Walton. The patient is know to me. Also, she had very abnormal stress test and she had left ventricular dysfunction with ejection fraction of 35% to 40% and mild aortic stenosis. In fact, she was maintained on therapy. The patient came to our office with shortness of breath and chest pain. We evaluated her recently with noninvasive cardiac workup and she is supposed to come back for followup. The patient yesterday developed severe abdominal pain with nausea. Her condition continued to deteriorate. Her abdominal pain becomes very diffuse and very severe. She has been nauseated and she is retching and she has vomited twice. She came to the emergency room. CAT scan showed free air under the diaphragm indicating bowel perforation in addition to presence of fluid. She is going to be taken to OR. Urgent cardiac consultation is obtained. The patient regarding her hypertension she has been on lisinopril, amlodipine, and Lasix. Regarding her diabetes mellitus, since she lost 100 pounds, she is not on any medication. The patient is maintained on several GI issue because of her loose bowel movement and diarrhea including colestipol four tablets twice a day, dicyclomine 20 mg four times a day, Carafate 1 g a day, Dexilant, and Zofran p.r.n. The patient's main cardiac symptoms are easy fatigability, shortness of breath on exertion class 3. No angina, but shortness of breath on exertion, relieved by rest. No orthopnea. No paroxysmal nocturnal dyspnea. HOME MEDICATIONS: Lisinopril 40 mg a day, amlodipine 5 mg a day, atenolol 25 mg twice a day, Lasix 40 mg a day, aspirin 81 mg a day, lovastatin 20 mg a day, Probiotic, colestipol, dicyclomine, Carafate, Dexilant, Zofran, vitamin D3. ALLERGIES: LIPITOR IS STOPPED BECAUSE OF HIGH LIVER ENZYMES. PAST MEDICAL HISTORY: 1. Hypertension. 2. Diabetes mellitus, diet controlled since she lost weight. 3. Hyperlipidemia. 4. Mild aortic stenosis. 5. Proteinuria. 6. History of Crohn disease. 7. 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 8. History of hematuria in June 2018. 9. Mild aortic stenosis. 10. Abnormal stress test. SOCIAL HISTORY: She is former smoker. 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 She is social alcohol drinker. She is single. FAMILY HISTORY: Father at age 65 with alcohol complication and liver disease. Mother in her 70s with kidney and liver disease. She was diabetic. Nine siblings, few of them with diabetes. No children. REVIEW OF SYSTEMS: GENERAL: Fevers, chills, weight loss. HEENT: No vision problem. No hearing problem. CARDIAC: As per current history. PULMONARY: As per current history. GI: As per current history basically severe abdominal pain with tenderness, nausea, vomiting, and she is still having loose bowel movement. HEMATOLOGY: Easy bruising, but no bleeding. : Increased frequency of urination. MUSCULOSKELETAL: Back pain. NEUROLOGIC: Weakness, generalized, but no localized deficit or seizure. PHYSICAL EXAMINATION: VITAL SIGNS: Height of 5 feet 3 inches, weight of 132 pounds, blood pressure 130/80, heart rate of 60, respiratory rate of 18. HEENT: Pupils are reactive. NECK: No elevation of jugular venous pulsation. No bruit. CHEST: Decreased air entry in bases and crackles. HEART: Normal first and second heart sound. Ejection systolic murmur in left sternal border. ABDOMEN: Tender and rebound. Bowel sounds are decreased. EXTREMITIES: No signs of clubbing. No signs of deep venous thrombosis. NEUROLOGIC: Awake, alert, oriented, nonfocal. LABORATORY DATA: Sodium of 138, potassium of 4.4, BUN of 35, creatinine of 1.1, glucose of 141. White blood cell count of 17.4, hemoglobin of 11.1, hematocrit 36%, platelet count of 340,000. CT report as per chart. IMPRESSION AND PLAN: 1. Acute abdomen with perforated gut. 2. Hypertension and left ventricular diastolic dysfunction. 3. Aortic stenosis, mild. 4. Hypertension. 5. Abnormal stress test. 6. Diabetes mellitus. 7. Short-gut syndrome. Cardiac wagner, the patient is cleared for surgery because the surgery is urgent and needed. Her risks are acceptable, without surgery approach she will have peritonitis and she will succumb to her illness. The patient will be covered with antibiotics. She will be given IV fluid. We will observe for volume status and her condition carefully. Case discussed and explained to the patient. The patient is seen in ER urgently. Questions are answered. MD NEEL Lopez/RODRIGOL /[id number]
[2019-09-06] MEDS: ACETAMINOPHEN 1000 MG/100 ML IV PRN (20:13)
--- NOTE | 2019-09-06 20:21 | History and Physical ---
PRIMARY CARE PHYSICIAN: Dr. Jolene Garcia with [facility]. CHIEF COMPLAINT: Abdominal pain, severe. HISTORY OF PRESENT ILLNESS: A 64-year-old female with past medical history of hypertension, high cholesterol, CKD, CHF with history of bowel resection about a year ago, presented with complaints of abdominal pain that started around 9 p.m. last night. She reports having intermittent chronic abdominal pain, which had resolved about a month ago and last night, she had a piece of steak and hamburger around 7 p.m. and at about 9 p.m., she started having abdominal pain. The pain continued to worsen, and states she also had nausea and one time vomiting episode. She has a chronic diarrhea. She denies any fever, chills. No hematemesis, melena, chest pain, or radiating pain to the back. She stated overnight, her pain worsened to 9/10, so she presented to the ER for further evaluation. At the ER, CT scan of abdomen and pelvis was done, which showed free air and fluid present consistent with bowel perforation. Site of perforation is uncertain, but there appears to be mild thickening of small bowel loops in the lower mid abdomen and also shows large calcified uterine fibroids has been noted in the past. We will admit the patient for further management of bowel perforation. PAST MEDICAL HISTORY: 1. Hypertension. 2. High cholesterol. 3. CKD. 4. CHF. PAST SURGICAL HISTORY: 1. Cholecystectomy. 2. Bowel resection a year ago. FAMILY MEDICAL HISTORY: Reports mother and father had diabetes and siblings with heart disease. SOCIAL HISTORY: The patient denies any tobacco, alcohol, or illicit drug use. ALLERGIES: ATORVASTATIN AND IRON. REVIEW OF SYSTEMS: GENERAL: In no distress. HEENT: No head trauma or mouth sores. LUNGS: No shortness of breath or cough. CARDIOVASCULAR: No chest pain or edema. GI: Abdominal pain, nausea, and diarrhea. NEUROLOGIC: Alert and oriented. MUSCULOSKELETAL: Moves all extremities. SKIN: No rash. PHYSICAL EXAMINATION: VITAL SIGNS: Temperature is 98.7, pulse is 72, respirations 23, blood pressure is 113/43, and pulse ox is 96% on room air. GENERAL: No acute distress. HEENT: Normocephalic, atraumatic. NECK: Supple and midline. LUNGS: Clear to auscultation. CARDIOVASCULAR: S1, S2 heard. GI: Soft, tender to palpation. NEUROLOGIC: Alert, awake, and oriented x3. MUSCULOSKELETAL: Moves all extremities. No edema noted. SKIN: Dry and intact. PSYCHIATRIC: Normal affect. LABORATORY DATA: WBC 17.43, hemoglobin 11.1, hematocrit 35.7, platelets 340. Sodium 138, potassium 4.4, carbon dioxide 21, BUN is 35, creatinine is 1.11, estimated GFR is 50. Lactic acid 18, AST 20, ALT 10, amylase 109, lipase 26. IMAGING: CT abdomen results described in HPI. IMPRESSION AND PLAN: 1. Severe abdominal pain due to possible bowel perforation per imaging. She is kept n.p.o., IV fluids with light hydration, pain management, Zosyn for empiric antibiotic treatment. Surgical team consulted and planned surgery this afternoon. 2. Leukocytosis, likely due to bowel perforation. She is afebrile, continue IV antibiotics and trend WBCs. 3. Hypertension, now stable. We will treat as needed with hydralazine IV. 4. High cholesterol. We will hold all p.o. medications for now. 5. Chronic kidney disease. Creatinine is 1.1. We will continue to monitor. 6. Congestive heart failure, stable at this time. Continue cardiac telemetry and we will resume home medication once p.o. started. Cardiology is on the case and has cleared the patient for surgery. 7. Deep vein thrombosis prophylaxis, we will hold any chemical anticoagulation due to surgery today. Dictated by AJITH Alba Karli Lynch MD MY/MODL /[id number]
--- NOTE | 2019-09-06 21:10 | NUR ---
Notified Dr. Walton of hypotension. Orders received.
[2019-09-06] MEDS ORDERED: LACTATED RINGER'S 500 ML IV ONE (21:15)
[2019-09-06] MEDS ORDERED: INFLUENZA VIRUS VAC SPLIT INJ 0.5 ML SYR IM SCH (21:51)
[2019-09-07] VITALS (24 sets, daily range): BP systolic 83–130; BP diastolic 30–48
--- NOTE | 2019-09-07 00:22 | Operative Report ---
DATE OF PROCEDURE: 09/06/2019 SURGEON: Seven Walton MD PREOPERATIVE DIAGNOSIS: Acute surgical abdomen with peritonitis and perforated viscus. POSTOPERATIVE DIAGNOSIS: Acute surgical abdomen with peritonitis and perforated viscus secondary to hole in the terminal ileum. OPERATIONS PERFORMED: Exploratory laparotomy, ileocolectomy, and peritoneal lavage. ANESTHESIA: General. COMPLICATIONS: None. ESTIMATED BLOOD LOSS: Minimal. DESCRIPTION OF PROCEDURE: With the patient lying in bed in the supine position under good general endotracheal anesthesia, the abdomen was prepped with Betadine solution and draped in the usual manner. A midline incision was made, it was carried down through the subcutaneous tissue and through the midline fascia. The peritoneum was opened and the abdomen was entered. Upon entering the abdominal cavity, some purulent foul-smelling material was encountered. This was mostly in the upper abdomen. This was all aspirated. We first looked at the stomach and duodenum and there was no sign of any perforation of the stomach. We opened the lesser sac and there was similarly no sign of any perforation in the posterior aspect of the stomach, although most of the fluid was in the subhepatic space. At this point, the colon was inspected. The patient had a previous right ileocolectomy for ischemic bowel a year ago and there was an ileocolic anastomosis in the right upper quadrant. The ileocolic anastomosis appeared to be widely patent. There was some fibrinous material overlying the ileum. Upon further examination, there was a small hole in the terminal ileum not at the anastomosis, within the ileum itself, which was the cause of the peritonitis. This was not a large hole. The rest of the colon appeared to be within normal limits. The patient has a large calcified uterus, which was known from preoperatively. The rest of the small bowel had some fibrinous exudate, but there were no other abnormalities. The hole was small enough, closed with a suture, but since we are not quite sure what the etiology of the issue is and since the patient has had a previous history of ischemic bowel, we decided that it would be best to resect the whole area that was abnormal including the old anastomosis, so we decided to go ahead and proceed with resection of the area of perforation and include the whole anastomosis. The small bowel was then divided with an application of STU-75 stapler at the point proximal to the perforation that looked normal. Similarly, the midtransverse colon was divided with an application of STU-75 stapler. The mesentery of the colon was divided with the EnSeal device and the specimen was sent for pathological examination. The area of perforation was marked with a suture for the pathologist to be able to identify. After this was done, the anastomosis was completed with another application of STU stapler bringing the ileum to the transverse colon without any difficulty and the remaining opening was closed with a TA-60 stapler. Gloves and instruments were changed. The mesenteric rent was then closed with a running suture of 2-0 Vicryl and the abdomen was then copiously irrigated with many L of saline solution until the effluent came back perfectly clear from all quadrants. Once this was done, the abdomen was then closed in layers. The peritoneum was closed with a running suture of #1 Vicryl. The midline fascia was closed with a running suture of #1 Vicryl and the skin was closed with clips. A dressing was applied. The sponge, lap, and needle count was correct. The patient tolerated the procedure well and returned to the recovery room in stable condition. MD ONI Amos/HODA /[id number]
[2019-09-07] MEDS: SODIUM CHLORIDE 0.9% 250ML IRRIG IR SCH ×6 (01:46→20:29)
--- NOTE | 2019-09-07 03:58 | NUR ---
Notified Dr. Walton of hypotension. Orders received.
[2019-09-07] MEDS ORDERED: HETASTARCH 6%/NACL INJ 500 ML IV ONE (04:00)
[2019-09-07 04:46] LABS: CREATINE KINASE MB 1.8 ng/mL (0-5.0)
[2019-09-07 05:11] LABS: BASOPHILS # (AUTO) 0.1 (0.0-0.1); BASOPHILS % 0.4 % (0.0-1.0); EOSINOPHILS % 0.1 % (0.0-6.0); HEMATOCRIT 27.8 % (34.2-44.1); HEMOGLOBIN 8.7 g/dL (12.0-16.0); LYMPHOCYTES # (AUTO) 0.9 (1.0-3.2); LYMPHOCYTES % 4.7 % (18.0-39.1); MEAN CORPUSCULAR HEMOGLOBIN 29.5 pg (28-32); MEAN CORPUSCULAR HGB CONC 31.3 g/dL (31-35); MEAN CORPUSCULAR VOLUME 94.2 fL (81-99); MONOCYTES # (AUTO) 0.8 (0.2-0.8); MONOCYTES % 4.3 % (4.4-11.3); NEUTROPHILS # (AUTO) 16.6 (2.1-6.9); NEUTROPHILS % 89.8 % (38.7-80.0); PLATELET COUNT 248 x10e3/uL (140-360); RED BLOOD COUNT 2.95 x10e6/uL (3.6-5.1); RED CELL DISTRIBUTION WIDTH 13.9 % (11.7-14.4)
[2019-09-07 05:45] LABS: CREATINE KINASE MB 2.1 ng/mL (0-5.0)
[2019-09-07] MEDS ORDERED: LACTATED RINGER'S 500 ML IV ONE (05:45)
[2019-09-07] MEDS: PIPER-TAZ 3.375 GM 50 ML IV SCH ×3 (06:00→18:00)
[2019-09-07 06:08] LABS: ALBUMIN 2.3 g/dL (3.5-5.0); ALBUMIN/GLOBULIN RATIO 0.7 (0.8-2.0); ANION GAP 13.6 mmol/L (8-16); CALCIUM 7.7 mg/dL (8.4-10.2); CREATININE, SERUM 1.77 mg/dL (0.57-1.11); POTASSIUM 4.6 mmol/L (3.5-5.1)
[2019-09-07] MEDS: SODIUM CHLORIDE 0.9% 1000ML 1,000 ML IV SCH ×2 (06:49→14:13)
[2019-09-07] MEDS: ATENOLOL 50 MG TAB PO SCH ×2 (07:49→16:31)
[2019-09-07] MEDS: HYDROMORPHONE 1MG/1ML INJ IV PRN ×5 (07:58→21:33)
[2019-09-07] MEDS ORDERED: AMLODIPINE BESYLATE 5 MG TAB PO SCH (09:00)
[2019-09-07] MEDS: FAMOTIDINE 20 MG/2 ML VIAL IV SCH ×2 (09:23→17:13)
[2019-09-07] MEDS ORDERED: FAMOTIDINE 20 MG/2 ML VIAL IV ONE (09:27)
--- NOTE | 2019-09-07 11:30 | NUR ---
DISCONTINUED LEFT RADIAL ARTERIAL LINE. PRESSURE HELD AND APPLIED PRESSURE DRESSING.
[2019-09-07] MEDS: ACETAMINOPHEN 1000 MG/100 ML IV PRN (12:27)
--- NOTE | 2019-09-07 12:29 | NUR ---
ASSISTED PATIENT UP TO CHAIR. ALL LINEN CHANGED. SELF ORAL CARE.
--- NOTE | 2019-09-07 15:16 | Progress Note ---
DATE: 09/07/2019 ADDITIONAL ATTENDING PHYSICIAN: Karli Lynch MD CONSULTING PHYSICIANS: 1. Dr. Baeza with Cardiology. 2. Dr. Levine with GI. 3. Dr. Walton with Surgery. CHIEF COMPLAINT: Abdominal pain, status post bowel resection. SUBJECTIVE: The patient is seen, sitting up in chair. NG tube in place. Complains of severe abdominal pain. Mildly lethargic due to the pain medication given a few minutes ago. She denies any nausea, vomiting, fever, chills, bowel movement or passing flatus. Has abdominal binder for support. PHYSICAL EXAMINATION: VITAL SIGNS: Temperature 98.3, pulse is 83, respirations 22, blood pressure is 130/47, pulse ox is 98% on room air. GENERAL: No acute distress. HEENT: Normocephalic, atraumatic. NECK: Supple and midline. CARDIOVASCULAR: Regular rate and rhythm. LUNGS: Decreased breath sounds. ABDOMEN: Tender, binder in place. NEUROLOGIC: Alert, awake, oriented x3. MUSCULOSKELETAL: Moves all extremities. SKIN: Dry and intact. LABORATORY DATA: WBC 18.46, hemoglobin is 8.7, hematocrit is 27.8, platelet is 248. Sodium is 136, potassium is 4.6, BUN is 43, creatinine is 1.77, estimated GFR is 29, calcium 7.7, total protein is 5.4, albumin is 2.3. Troponin x3 is negative. Lactic acid is 18.4. IMPRESSION AND PLAN: 1. Status post bowel resection and peritoneal lavage for terminal ileum. NG tube in place, n.p.o. until bowel functions return. Continue Zosyn for empiric antibiotic. Dr. Walton on the case. We also consulted GI for followup. 2. Leukocytosis, likely due to bowel perforation and surgery. She is afebrile. We will continue with antibiotics and trend CBC. 3. Acute kidney injury. Creatinine is 1.77. We will continue with IV fluids for hydration as she is n.p.o. 4. Hypertension, now hypotensive. We will continue to monitor closely and treat as needed with hydralazine IV. 5. History of irritable bowel syndrome. Gastroenterology on the case. Appreciate input. 6. High cholesterol. We will hold all p.o. medications. She is n.p.o. 7. History of congestive heart failure. Stable at this time. We will continue tele and resume medications once p.o. started. Cardiology is on the case, appreciate input. 8. Anemia with a hemoglobin of 8.7. We will continue to monitor, likely due to surgery. 9. Deep vein thrombosis prophylaxis. SCDs, we will hold any chemical anticoagulation due to surgery. Dictated by AJITH Alba Karli Lynch MD MY/MODL /[id number] Seen and examined on 09/07/2019. Agree with the findings and plan as documented by AJITH Aleman. LYUDMILA
[2019-09-07] MEDS: PANTOPRAZOLE 40 MG 10ML VIAL IV SCH (19:00)
[2019-09-08] VITALS (16 sets, daily range): BP systolic 96–129; BP diastolic 36–94
[2019-09-08] MEDS ORDERED: PANTOPRAZOLE 40 MG 10ML VIAL IV STA (01:08)
[2019-09-08] MEDS: SODIUM CHLORIDE 0.9% 1000ML 1,000 ML IV SCH ×2 (01:26→09:47)
[2019-09-08] MEDS: HYDROMORPHONE 1MG/1ML INJ IV PRN ×5 (01:26→22:02)
[2019-09-08] MEDS: SODIUM CHLORIDE 0.9% 250ML IRRIG IR SCH ×7 (01:26→21:38)
[2019-09-08] MEDS: PANTOPRAZOL 40MG/SOD CHL 0.9% 250 ML IV SCH ×2 (01:47→06:16)
[2019-09-08 05:24] LABS: BASOPHILS # (AUTO) 0.1 (0.0-0.1); BASOPHILS % 0.6 % (0.0-1.0); EOSINOPHILS # (AUTO) 0.1 (0.0-0.4); EOSINOPHILS % 0.5 % (0.0-6.0); HEMATOCRIT 25.8 % (34.2-44.1); LYMPHOCYTES # (AUTO) 0.9 (1.0-3.2); LYMPHOCYTES % 6.7 % (18.0-39.1); MEAN CORPUSCULAR HEMOGLOBIN 29.3 pg (28-32); MEAN CORPUSCULAR VOLUME 94.5 fL (81-99); MONOCYTES # (AUTO) 0.7 (0.2-0.8); MONOCYTES % 5.6 % (4.4-11.3); NEUTROPHILS # (AUTO) 11.3 (2.1-6.9); NEUTROPHILS % 85.8 % (38.7-80.0); PLATELET COUNT 219 x10e3/uL (140-360); RED BLOOD COUNT 2.73 x10e6/uL (3.6-5.1); RED CELL DISTRIBUTION WIDTH 14.3 % (11.7-14.4)
[2019-09-08 05:45] LABS: ALBUMIN 2.1 g/dL (3.5-5.0); ALBUMIN/GLOBULIN RATIO 0.7 (0.8-2.0); ANION GAP 12.6 mmol/L (8-16); CALCIUM 8.1 mg/dL (8.4-10.2); CREATININE, SERUM 2.26 mg/dL (0.57-1.11); POTASSIUM 4.6 mmol/L (3.5-5.1)
[2019-09-08 06:27] LABS: BAND NEUTROPHILS % (MANUAL) 4 %; EOSINOPHILS % (MANUAL) 3 % (0-7); FERRITIN 1243.01 ng/mL (4.63-204.00); LYMPHOCYTES % (MANUAL) 11 % (19-48); NEUTROPHILS % (MANUAL) 81 % (40-74); PLATELET ESTIMATE ADEQUATE; PLATELET MORPHOLOGY COMMENT NORMAL; RBC MORPHOLOGY COMMENT NORMAL
[2019-09-08] MEDS: PIPER-TAZ 3.375 GM 50 ML IV SCH ×2 (07:56→21:08)
[2019-09-08] MEDS: PANTOPRAZOL 40MG/SOD CHL 0.9% 50 ML IV SCH ×3 (10:49→20:14)
--- NOTE | 2019-09-08 12:14 | NUR ---
Dr Walton in with pt and evaluated. OK to transfer to med-surg. Addendum: 09/08/19 at 1221 by Ivanna Holden RN Dr Hamlet Walton does not want the mireles to be removed today.
[2019-09-08] MEDS ORDERED: CEFTRIAXONE SOD 1 GM/NS 50 ML 50 ML IV SCH (12:45)
[2019-09-08] MEDS ORDERED: IRON SUCROSE 100 MG in SODIUM CHLORIDE 0.9% 100 ML 100 ML IV SCH (13:00)
--- NOTE | 2019-09-08 13:07 | NUR ---
conducted initial assessment with patient. Patient is concerned about working after this hospitalization. Discussed custodial and short term disability with patient and gave her instructions with how to start the process. cm to follow
--- NOTE | 2019-09-08 13:12 | NUR ---
Dr Lynch in with patient, transfer orders received.
[2019-09-08] MEDS: LACTATED RINGER'S 1,000 ML IV SCH ×2 (13:38→21:00)
--- NOTE | 2019-09-08 16:00 | NUR ---
Report given to Kimberley RABAGO. Have passed on to Kimberley that the venofor has to be double checked with Dr Lynch. Call to Dr Taylor's office to notify of consult done. Addendum: 09/08/19 at 1659 by Ivanna Holden RN Consult to Dr Taylor cancelled. Retracted order by Dr Lynch.
--- NOTE | 2019-09-08 17:03 | NUR ---
PT ARRIVED VIA BED, AA&OX3, RA, NGT TO WALL SUCTION, IRRIGATED PER MD ORDER , HOB ELEVATED, DENIES PAIN AT THIS TIME, ORIENTED TO ROOM AND CALL LIGHT WITHIN REACH
[2019-09-08] MEDS: ONDANSETRON HCL INJ 2MG/ML 2ML 2 MG/ML VIAL IV PRN (18:35)
--- NOTE | 2019-09-08 18:39 | NUR ---
MD MARIE INTO SEE PT, DISCUSSED POC, PT MEDICATED PER MD ORDER FOR 4/ ABD PAIN, CALL LIGHT WITHIN REACH
--- NOTE | 2019-09-08 18:43 | NUR ---
TELEPHONED MD ANDERS TO CLARIFY IRON ORDER, AWAITING CALL BACK
--- NOTE | 2019-09-08 19:22 | NUR ---
SPOKE WITH MD ANDERS, ORDERS NOTED TO DC IRON, TELEMETRY PLACED PER ORDER
--- NOTE | 2019-09-08 20:15 | NUR ---
PLACED PATIENT AT O2 AT 2L/MIN.
[2019-09-09] VITALS (8 sets, daily range): BP systolic 111–171; BP diastolic 51–69
[2019-09-09] MEDS: LACTATED RINGER'S 1,000 ML IV SCH ×3 (00:52→13:02)
[2019-09-09] MEDS: SODIUM CHLORIDE 0.9% 250ML IRRIG IR SCH ×6 (00:52→22:49)
[2019-09-09] MEDS: HYDROMORPHONE 1MG/1ML INJ IV PRN ×3 (01:30→21:44)
[2019-09-09] MEDS: PANTOPRAZOL 40MG/SOD CHL 0.9% 50 ML IV SCH ×5 (01:30→21:39)
--- NOTE | 2019-09-09 06:01 | NUR ---
IJ dressing changed.
[2019-09-09 06:03] LABS: BASOPHILS # (AUTO) 0.1 (0.0-0.1); BASOPHILS % 1.1 % (0.0-1.0); EOSINOPHILS # (AUTO) 0.1 (0.0-0.4); EOSINOPHILS % 1.1 % (0.0-6.0); HEMATOCRIT 26.2 % (34.2-44.1); HEMOGLOBIN 8.2 g/dL (12.0-16.0); LYMPHOCYTES # (AUTO) 1.1 (1.0-3.2); LYMPHOCYTES % 16.4 % (18.0-39.1); MEAN CORPUSCULAR HEMOGLOBIN 29.6 pg (28-32); MEAN CORPUSCULAR HGB CONC 31.3 g/dL (31-35); MEAN CORPUSCULAR VOLUME 94.6 fL (81-99); MONOCYTES # (AUTO) 0.7 (0.2-0.8); MONOCYTES % 10.5 % (4.4-11.3); NEUTROPHILS # (AUTO) 4.5 (2.1-6.9); NEUTROPHILS % 69.8 % (38.7-80.0); PLATELET COUNT 224 x10e3/uL (140-360); RED BLOOD COUNT 2.77 x10e6/uL (3.6-5.1); RED CELL DISTRIBUTION WIDTH 14.5 % (11.7-14.4)
[2019-09-09 06:21] LABS: ALBUMIN 2.2 g/dL (3.5-5.0); ALBUMIN/GLOBULIN RATIO 0.6 (0.8-2.0); ANION GAP 14.3 mmol/L (8-16); CALCIUM 8.5 mg/dL (8.4-10.2); CREATININE, SERUM 2.3 mg/dL (0.57-1.11); POTASSIUM 4.3 mmol/L (3.5-5.1)
--- NOTE | 2019-09-09 09:10 | NUR ---
WITH STANDBY ASSISTANCE, PT OOB TO CHAIR, CALL LIGHT WITHIN REACH
[2019-09-09] MEDS: PIPER-TAZ 3.375 GM 50 ML IV SCH ×2 (09:40→21:38)
[2019-09-09] MEDS: ONDANSETRON HCL INJ 2MG/ML 2ML 2 MG/ML VIAL IV PRN (11:41)
--- NOTE | 2019-09-09 11:45 | NUR ---
MEDICATED PER MD ORDER FOR 6/10 ABD PAIN, EDUCATED TO NOT GET OOB WITHOUT CALLING FOR ASSISTANCE, CALL LIGHT WITHIN REACH
--- NOTE | 2019-09-09 17:19 | NUR ---
Nutrition Intervention Note RD Recommendation(s) for Physician: - When feasible, ADAT to goal of GI Soft Pt meets criteria for mild protein calorie malnutrition Plan of Care: RD following, monitoring for tolerance and adequacy Nutrition reason for involvement: early diet- NPO day 3 [address] Assessment 09/09: 64 YOF admitted for bowel perforation, now s/p ileocolectomy. Pt with hx of bowel resection, stomach ulcers per pt, ans IBS per MD notes. Pt seen today per NPO day 3. Pt discussed during am rounds. NGT in place noted 500 ml of brown output at time of visit. Pt reports eating better over the course of the past year since her bowel resection and that she does not tolerate certain foods such as broccoli or cabbage, but does well with eggs. Intake has remained <75% of meals though per pt and family. Pt reports progressive wt gain in the past year as well, approximately 25-30 lb. Pt states she does not like any supplements and will not drink them- declined supplementation when diet advanced. All questions and concerns addressed at time of visit. Will monitor and continue to follow. Principal Problems/Diagnoses: bowel perforation PMH: IBS, bowel resection, HTN, high cholesterol, CKD, CHF, cholecystectomy GI: s/p ileocolectomy, + NGT with 1150 ml output yesterday Skin: abdominal incision Labs: 09/09: na 144, k 4.3, BUN 56, Cr 2.3, Gluc 62 IVF: LR at 100 ml/hr Meds: zofran, pantoprazole, abx Ht: 63 in Wt: 133 lb BMI: 23.6 IBW: 115 lb Malnutrition Evaluation (09/09/19) The patient meets criteria for MILD protein-calorie malnutrition. Energy intake: <75% of estimated energy requirements for >3 months Weight loss: No wt loss reported, reported wt gain in past 6 mo. Fat loss: Mild, eyes- slightly hollow look Muscle loss: Mild, baptist- slight hollowing Supporting Evidence: Fluid accumulation: None Functional Status: unable to evaluate Nutrition Prescription (Diet Order): NPO Estimated Nutritional Needs: 1786-2334 calories/day (25-35 kcal/kg CBW) 60-90 g protein/day (1-1.5 g pro/kg CBW) Diet Adequacy: Not meeting calorie needs, Not meeting protein needs Diet Education Needs Assessment: Diet education not indicated, patient on temporary/transition diet. Nutrition Care Level: Mod Nutrition Diagnosis: Inadequate energy and protein intake related to bowel perforation requiring ileocolectomy as evidenced by pt remaining NPO after surgery and not meeting needs. Goal: Patient will meet 75-100% of estimated needs by follow up Progress: N/A Interventions: fiber modified diet,Recommended Modifications, Skill Development, Collaboration with other providers Monitoring/Evaluation: Total energy intake, Total protein intake, Modified diet Signed: Vivi Magaña RD, LD, [facility]
--- NOTE | 2019-09-09 18:04 | NUR ---
MD [place] LYNN INTO SEE PT, DISCUSSED POC
[2019-09-09] MEDS: BISACODYL 10 MG SUPP PR SCH (21:38)
[2019-09-10] VITALS (9 sets, daily range): BP systolic 142–173; BP diastolic 63–74
[2019-09-10] MEDS: LACTATED RINGER'S 1,000 ML IV SCH ×2 (03:17→08:34)
[2019-09-10] MEDS: PANTOPRAZOL 40MG/SOD CHL 0.9% 50 ML IV SCH ×5 (04:37→23:05)
[2019-09-10] MEDS: HYDROMORPHONE 1MG/1ML INJ IV PRN ×3 (04:52→13:32)
[2019-09-10 05:54] LABS: BASOPHILS # (AUTO) 0.1 (0.0-0.1); BASOPHILS % 0.8 % (0.0-1.0); EOSINOPHILS # (AUTO) 0.1 (0.0-0.4); EOSINOPHILS % 1.7 % (0.0-6.0); HEMATOCRIT 26.2 % (34.2-44.1); LYMPHOCYTES % 16.2 % (18.0-39.1); MEAN CORPUSCULAR HGB CONC 30.5 g/dL (31-35); MEAN CORPUSCULAR VOLUME 94.9 fL (81-99); MONOCYTES # (AUTO) 0.8 (0.2-0.8); MONOCYTES % 13.4 % (4.4-11.3); NEUTROPHILS % 67.1 % (38.7-80.0); PLATELET COUNT 229 x10e3/uL (140-360); RED BLOOD COUNT 2.76 x10e6/uL (3.6-5.1); RED CELL DISTRIBUTION WIDTH 14.6 % (11.7-14.4)
[2019-09-10] MEDS: SODIUM CHLORIDE 0.9% 250ML IRRIG IR SCH ×4 (05:57→16:33)
[2019-09-10 06:18] LABS: ANION GAP 15.2 mmol/L (8-16); CALCIUM 8.7 mg/dL (8.4-10.2); CREATININE, SERUM 2.38 mg/dL (0.57-1.11); POTASSIUM 4.2 mmol/L (3.5-5.1)
[2019-09-10] MEDS: BISACODYL 10 MG SUPP PR SCH ×2 (08:00→21:00)
[2019-09-10] MEDS: PIPER-TAZ 3.375 GM 50 ML IV SCH ×2 (08:34→21:25)
--- NOTE | 2019-09-10 09:02 | NUR ---
Patient alert and responsive, OOB with assistance to bathroom, NG tube flushed and draining, no distress, protonix running and IV fluids reconnected, will monitor.
[2019-09-10] MEDS: ONDANSETRON HCL INJ 2MG/ML 2ML 2 MG/ML VIAL IV PRN ×2 (10:00→13:32)
--- NOTE | 2019-09-10 12:59 | NUR ---
Patient OOB and ambulated with PT, sitting up on chair in the room, pains well managed, will monitor.
--- NOTE | 2019-09-10 16:36 | NUR ---
Rounds by Dr. Cary Milian and changed dressing to surgical site and abdomen, abdominal binder in place and incision well approximated. IV fluids decreased, started on clear liquid diet and will monitor. Orders to d/c NG tube and has been removed at this time.
[2019-09-10] MEDS: HYDROCODONE/APAP 7.5MG-325MG 1 EA TAB PO PRN (17:11)
--- NOTE | 2019-09-10 18:01 | NUR ---
Patient had clear liquid diet and tolerated well, pains well managed, will monitor
[2019-09-11] VITALS (8 sets, daily range): BP systolic 126–180; BP diastolic 59–78
[2019-09-11] MEDS: HYDROMORPHONE 1MG/1ML INJ IV PRN ×4 (01:25→20:02)
[2019-09-11] MEDS: PANTOPRAZOL 40MG/SOD CHL 0.9% 50 ML IV SCH ×4 (03:53→19:45)
[2019-09-11] MEDS: LACTATED RINGER'S 1,000 ML IV SCH ×2 (03:53→17:02)
--- NOTE | 2019-09-11 06:54 | NUR ---
Received patient and alert and responsive, had 2 BMs last night, call light within reach, no nausea, no vomiting, pains managed, will monitor.
[2019-09-11] MEDS: ONDANSETRON HCL INJ 2MG/ML 2ML 2 MG/ML VIAL IV PRN ×2 (07:45→20:00)
[2019-09-11] MEDS: BISACODYL 10 MG SUPP PR SCH (08:00)
[2019-09-11] MEDS: PIPER-TAZ 3.375 GM 50 ML IV SCH ×2 (09:00→21:30)
[2019-09-11] MEDS: HYDROCODONE/APAP 7.5MG-325MG 1 EA TAB PO PRN (11:53)
[2019-09-11] MEDS: HYDRALAZINE HCL 20 MG/ML VIAL IV PRN (12:06)
[2019-09-11] MEDS: IRON SUCROSE 100 MG in SODIUM CHLORIDE 0.9% 100 ML 100 ML IV SCH (12:07)
--- NOTE | 2019-09-11 13:32 | NUR ---
Patient had lunch, now c/o abdominal pains, call to Dr. Milian's office and waiting for call back
--- NOTE | 2019-09-11 15:11 | Diagnostic Imaging Report ---
Exam: Abdominal film Clinical History: Surgery Comparison: CT September 06, 2019 DISCUSSION: Dilated loops of air-filled small bowel measuring up to 5 cm with air-fluid levels. Calcified pelvic fibroid. IMPRESSION: Small bowel ileus Signed by: Dr. Frank Franks M.D. on 09/11/2019 3:08 PM
[2019-09-11 16:25] LABS: ANION GAP 13.6 mmol/L (8-16); CALCIUM 8.9 mg/dL (8.4-10.2); CREATININE, SERUM 1.92 mg/dL (0.57-1.11); POTASSIUM 3.6 mmol/L (3.5-5.1)
--- NOTE | 2019-09-11 17:26 | NUR ---
Orders per Dr. Walton for Dulcolax supp and to add 20meq kcl to L/R, patient to remain NPO
[2019-09-11 17:31] LABS: BASOPHILS % 0.6 % (0.0-1.0); EOSINOPHILS # (AUTO) 0.2 (0.0-0.4); EOSINOPHILS % 3.1 % (0.0-6.0); LYMPHOCYTES # (AUTO) 1.3 (1.0-3.2); MEAN CORPUSCULAR HEMOGLOBIN 28.9 pg (28-32); MEAN CORPUSCULAR HGB CONC 29.6 g/dL (31-35); MEAN CORPUSCULAR VOLUME 97.5 fL (81-99); MONOCYTES # (AUTO) 0.9 (0.2-0.8); MONOCYTES % 13.3 % (4.4-11.3); NEUTROPHILS # (AUTO) 4.2 (2.1-6.9); NEUTROPHILS % 62.4 % (38.7-80.0); PLATELET COUNT 232 x10e3/uL (140-360); RED BLOOD COUNT 2.77 x10e6/uL (3.6-5.1); RED CELL DISTRIBUTION WIDTH 14.5 % (11.7-14.4)
[2019-09-11] MEDS: POTASSIUM CHLORIDE 20 MEQ in LACTATED RINGER'S 1,000 ML IV SCH (18:00)
[2019-09-11] MEDS ORDERED: BISACODYL 10 MG SUPP PR NR (20:30)
[2019-09-12] VITALS (8 sets, daily range): BP systolic 147–184; BP diastolic 67–79
[2019-09-12] MEDS: PANTOPRAZOL 40MG/SOD CHL 0.9% 50 ML IV SCH ×5 (00:13→19:51)
--- NOTE | 2019-09-12 01:18 | NUR ---
Assessment done.no resp.distress.ambulates.had diarrhea. is in the unit to see the pt.notified about diarrhea.not recommended for lab investigation.bed locked and in lowest position.phone and call light within reach.instructed to al for assistance as needed.
[2019-09-12] MEDS: ONDANSETRON HCL INJ 2MG/ML 2ML 2 MG/ML VIAL IV PRN ×2 (04:35→21:27)
[2019-09-12] MEDS: HYDROMORPHONE 1MG/1ML INJ IV PRN ×2 (04:35→21:28)
[2019-09-12 06:24] LABS: ANION GAP 11.8 mmol/L (8-16); CALCIUM 8.4 mg/dL (8.4-10.2); CREATININE, SERUM 1.74 mg/dL (0.57-1.11); POTASSIUM 3.8 mmol/L (3.5-5.1)
--- NOTE | 2019-09-12 06:58 | NUR ---
Bed side shift report given to the oncoming Rn.stable condition.
--- NOTE | 2019-09-12 07:05 | NUR ---
Patient alert and responsive, medicated for pain by outgoing nurse, denies any measure pains at this time, no N/V, remains NPO for now and will 2 view imaging abd ordered, will monitor, call light within reach,
[2019-09-12] MEDS: PIPER-TAZ 3.375 GM 50 ML IV SCH ×2 (09:06→21:16)
[2019-09-12] MEDS: POTASSIUM CHLORIDE 20 MEQ in LACTATED RINGER'S 1,000 ML IV SCH ×2 (09:06→19:51)
--- NOTE | 2019-09-12 09:24 | Diagnostic Imaging Report ---
RADIOGRAPH(S) OF THE ABDOMEN AND PELVIS, 2 view(s) HISTORY: Abdominal pain COMPARISON: Abdominal radiographs September 11, 2019. FINDINGS: See impression IMPRESSION: 1. Interval decreased gaseous distention of the small bowel, with residual dilated loops. 2. Unchanged metallic skin madalyn, radiopaque suture material, and partially calcified large degenerating uterine fibroid. Signed by: Dr. Tony Nagy D.O., M.M.M. on 09/12/2019 9:21 AM
--- NOTE | 2019-09-12 09:41 | NUR ---
Rounds by Dr. Pat Milian and orders to offer sips of clear liquid and see how patient will tolerate. Orders for Reglan 10q6 IV x24 hours.
[2019-09-12] MEDS: IRON SUCROSE 100 MG in SODIUM CHLORIDE 0.9% 100 ML 100 ML IV SCH (11:41)
[2019-09-12] MEDS: HYDRALAZINE HCL 20 MG/ML VIAL IV PRN (12:53)
[2019-09-12] MEDS: METOCLOPRAMIDE HCL 10 MG/2ML VIAL IV SCH ×2 (12:53→19:27)
[2019-09-12] MEDS: AMLODIPINE BESYLATE 5 MG TAB PO SCH (13:30)
--- NOTE | 2019-09-12 14:50 | NUR ---
Visit made by the Spiritual Care Department Pastoral Visitor, Javier Pascual. PV provided pastoral presence, hospitality, and supportive listening. Pastoral Visitor informed pt/family of the scope of [employer] and availability. [employer] Spiritual Care Department O: [phone] Pager: [phone] ([phone] calling from)
[2019-09-12] MEDS ORDERED: BISACODYL 10 MG SUPP PR NR (16:30)
--- NOTE | 2019-09-12 17:48 | NUR ---
Patient had some jello and clear sips and tolerated well, no c/o abdominal pains, no N/V, no resp distress, OOB and ambulated several times today, will monitor. IV in place running.
--- NOTE | 2019-09-12 18:14 | NUR ---
Patient had 2 BMs loose this shift, refused suppository for now and will consider later at bed time, tolerated fluids by mouth, no abdominal pain, will monitor.
--- NOTE | 2019-09-12 19:10 | NUR ---
BED SIDE SHIFT REPORT TAKEN FROM MORNING MARY IN THE BED.STABLE CONDITION.
--- NOTE | 2019-09-12 22:56 | NUR ---
DC TELE AND RETURNED TO DEPT.
[2019-09-13] VITALS (7 sets, daily range): BP systolic 136–173; BP diastolic 61–72
[2019-09-13] MEDS: METOCLOPRAMIDE HCL 10 MG/2ML VIAL IV SCH ×3 (00:20→11:37)
[2019-09-13] MEDS: PANTOPRAZOL 40MG/SOD CHL 0.9% 50 ML IV SCH (00:20)
--- NOTE | 2019-09-13 00:28 | NUR ---
Tolerates the sips of clear liquid.refused to administer dulcolax suppository.had 3 x bowel movement. is in the unit to see the pt.ordered to continue protonix drip.ambulates.bed locked and in lowest position.phone and call light within reach.instructed to call for assistance as needed.
[2019-09-13] MEDS: PANTOPRAZOLE INJ 40 MG in SODIUM CHLORIDE 0.9% 50ML 50 ML IV SCH ×4 (05:22→21:27)
--- NOTE | 2019-09-13 07:00 | NUR ---
BEDSIDE ROUNDS COMPLETE NO DISTRESS NOTED,PT IN STABLE CONDITION DENEIS PAIN AT THIS TIME, JHONNY TO ABDOMEN INTACT, ABDOMEN BINDER IN PLACE, IVF INFUSING TO R IJ INTACT, R AC 20G SL NO SS OF INFILTRATION NOTED, NO OTHER CO VOCIED CALL LIGHT IN REACH WILL CONTINUE TO MONITOR
--- NOTE | 2019-09-13 07:00 | NUR ---
Bed side shift report given to the oncoming Rn.stable condition.
[2019-09-13] MEDS: AMLODIPINE BESYLATE 5 MG TAB PO SCH (08:58)
[2019-09-13] MEDS: POTASSIUM CHLORIDE 20 MEQ in LACTATED RINGER'S 1,000 ML IV SCH (08:58)
[2019-09-13] MEDS: PIPER-TAZ 3.375 GM 50 ML IV SCH (08:59)
[2019-09-13] MEDS: IRON SUCROSE 100 MG in SODIUM CHLORIDE 0.9% 100 ML 100 ML IV SCH (11:37)
--- NOTE | 2019-09-13 15:00 | NUR ---
Nutrition Intervention Note RD Recommendation(s) for Physician: - When feasible, ADAT to goal of GI Soft - If unable to advance diet, consider parenteral nutrition and consult Nutrition for recommendations Pt meets criteria for mild protein calorie malnutrition Plan of Care: RD following, monitoring for tolerance and adequacy, diet rec's Nutrition reason for involvement: follow up RD Assessment 09/13: Pt seen for f/u. Pt discussed during am rounds. Pt was tolerating CL diet on Friday, developed an ileus over the weekend and diet was held. Plan for sips of clears today, tolerating water currently. Pt denies nausea or abdominal pain. All questions and concerns at time of visit. Will monitor and continue to follow. 09/09: 64 YOF admitted for bowel perforation, now s/p ileocolectomy. Pt with hx of bowel resection, stomach ulcers per pt, ans IBS per MD notes. Pt seen today per NPO day 3. Pt discussed during am rounds. NGT in place noted 500 ml of brown output at time of visit. Pt reports eating better over the course of the past year since her bowel resection and that she does not tolerate certain foods such as broccoli or cabbage, but does well with eggs. Intake has remained <75% of meals though per pt and family. Pt reports progressive wt gain in the past year as well, approximately 25-30 lb. Pt states she does not like any supplements and will not drink them- declined supplementation when diet advanced. All questions and concerns addressed at time of visit. Will monitor and continue to follow. Principal Problems/Diagnoses: bowel perforation PMH: IBS, bowel resection, HTN, high cholesterol, CKD, CHF, cholecystectomy GI: s/p ileocolectomy. BM x 3 per pt Skin: abdominal incision Labs: 09/12: Na 143, K 3.8, BUN 35, Cr 1.74, Gluc 73, Ca 8.4 09/09: na 144, k 4.3, BUN 56, Cr 2.3, Gluc 62 IVF: LR + KCl 20 mEq/L at 80 ml/hr Meds: zofran, pantoprazole, abx Ht: 63 in Wt: 133 lb BMI: 23.6 IBW: 115 lb Malnutrition Evaluation (09/09/19) The patient meets criteria for MILD protein-calorie malnutrition. Energy intake: <75% of estimated energy requirements for >3 months Weight loss: No wt loss reported, reported wt gain in past 6 mo. Fat loss: Mild, eyes- slightly hollow look Muscle loss: Mild, uatsdin- slight hollowing Supporting Evidence: Fluid accumulation: None Functional Status: unable to evaluate Nutrition Prescription (Diet Order): NPO Estimated Nutritional Needs: 5261-0868 calories/day (25-35 kcal/kg CBW) 60-90 g protein/day (1-1.5 g pro/kg CBW) Diet Adequacy: Not meeting calorie needs, Not meeting protein needs, meeting fluid needs Diet Education Needs Assessment: Diet education not indicated, patient on temporary/transition diet. Nutrition Care Level: Mod Nutrition Diagnosis: Inadequate energy and protein intake related to bowel perforation requiring ileocolectomy as evidenced by pt remaining NPO after surgery and not meeting needs. Goal: Patient will meet 75-100% of estimated needs by follow up Progress: not progressing Interventions: fiber modified diet,Recommended Modifications, Skill Development, Collaboration with other providers Monitoring/Evaluation: Total energy intake, Total protein intake, Modified diet Signed: Vivi Magaña RD, LD, CNSC
--- NOTE | 2019-09-13 17:20 | NUR ---
Removed Right IJ catheter. Removed 2 sutures. Tip intact. Held pressure for 5 minutes and pressure dressing applied. Patient tolerated well
[2019-09-13] MEDS: HYDROCODONE/APAP 7.5MG-325MG 1 EA TAB PO PRN (23:25)
[2019-09-14] VITALS: BP 161/71
[2019-09-14 00:21] VITALS: BP 162/66
[2019-09-14] MEDS: POTASSIUM CHLORIDE 20 MEQ in LACTATED RINGER'S 1,000 ML IV SCH ×2 (01:28→09:09)
[2019-09-14 04:00] VITALS: BP 152/69
[2019-09-14] MEDS: PANTOPRAZOLE INJ 40 MG in SODIUM CHLORIDE 0.9% 50ML 50 ML IV SCH ×3 (04:42→11:03)
--- NOTE | 2019-09-14 07:45 | NUR ---
The pt is up walking in the hallway and has no issues or concerns at this time.
[2019-09-14 07:46] LABS: ANION GAP 12.7 mmol/L (8-16); CALCIUM 8.6 mg/dL (8.4-10.2); CREATININE, SERUM 1.18 mg/dL (0.57-1.11); POTASSIUM 3.7 mmol/L (3.5-5.1)
[2019-09-14 08:58] VITALS: BP 162/71
[2019-09-14] MEDS: AMLODIPINE BESYLATE 5 MG TAB PO SCH (09:08)
[2019-09-14 09:50] VITALS: BP 162/71
[2019-09-14 13:01] VITALS: BP 144/66
--- NOTE | 2019-09-14 15:45 | Progress Note ---
DATE: 09/14/2019 CONSULTING PHYSICIANS: 1. Dr. Baeza with Cardiology. 2. Dr. Levine with GI. 3. Dr. Walton with Surgery. CHIEF COMPLAINT: Abdominal, status post bowel resection. SUBJECTIVE: The patient is sitting up in a chair tolerating her diet, abdominal pain is much improved. She denies any chest pain, nausea, vomiting, or diarrhea. PHYSICAL EXAMINATION: VITAL SIGNS: Temperature 98.7, pulse is 81, respirations 18, blood pressure 144/66, and pulse ox is 97% on room air. GENERAL: No acute distress. HEENT: Normocephalic, atraumatic. NECK: Supple and midline. CARDIOVASCULAR: Regular rate and rhythm. LUNGS: Clear to auscultation. ABDOMEN: Soft and nontender. NEUROLOGIC: Alert, awake, and oriented x3. MUSCULOSKELETAL: Moves all extremities. SKIN: Dry and intact. LABORATORY DATA: Sodium 140, potassium is 3.7, carbon dioxide is 21, creatinine is 1.18, and estimated GFR is 46. IMPRESSION: 1. Status post bowel resection for a perforated bowel. Tolerating full liquid diet. GI on the case. 2. Acute kidney injury, improving, creatinine of 1.1. 3. Iron deficiency anemia, status post Venofer. Continue monitoring H and H closely. 4. Hypertension. Stable on current medications. 5. History of irritable bowel syndrome. GI on the case. We will continue home medications. 6. History of congestive heart failure, stable. Continue current medication. Cardiology on the case. 7. Deep vein thrombosis prophylaxis. No chemical anticoagulation due to anemia. PLAN: The patient has been cleared for discharge per Dr. Walton. Advised to follow up with Dr. Walton, Dr. Levine, and PCP in 1 to 2 weeks. Dictated by AJITH Alba Karli Lynch MD MY/MODL /[id number] Seen and examined. Agree with the findings and plan as documented by AJITH Aleman. MTDD
== END 2019-09-14 15:22 | disposition home or self-care (01) | DRG 853 ==
LOC: ER 05:01 → ERHOLD 09:47 → UNDOADMIN 09:47 → OR 14:08 → PACU V 16:55 → ICU 18:02 → MED/SURG 09-08 16:40
PROVIDERS: ADMIT Surgery; ATTEND Surgery
PROC: 0DTB0ZZ Resection of Ileum, Open Approach (ICD-10-PCS; 2019-09-06)
PROC: 0DTK0ZZ Resection of Ascending Colon, Open Approach (ICD-10-PCS; principal; 2019-09-06 14:00)
DX: A41.9 Sepsis, unspecified organism (principal); K63.1 Perforation of intestine (nontraumatic); K65.8 Other peritonitis; N17.0 Acute kidney failure with tubular necrosis; I13.0 Hypertensive heart and chronic kidney disease with heart failure and stage 1 through stage 4 chronic kidney disease, or unspecified chronic kidney disease; I50.32 Chronic diastolic (congestive) heart failure; K91.2 Postsurgical malabsorption, not elsewhere classified; D62 Acute posthemorrhagic anemia; E87.2 Acidosis; K56.7 Ileus, unspecified; E44.1 Mild protein-calorie malnutrition; R65.20 Severe sepsis without septic shock; N18.9 Chronic kidney disease, unspecified; Z82.49 Family history of ischemic heart disease and other diseases of the circulatory system; I35.0 Nonrheumatic aortic (valve) stenosis; E11.22 Type 2 diabetes mellitus with diabetic chronic kidney disease; R94.39 Abnormal result of other cardiovascular function study; K58.9 Irritable bowel syndrome, unspecified; D50.9 Iron deficiency anemia, unspecified; I25.10 Atherosclerotic heart disease of native coronary artery without angina pectoris; Z88.8 Allergy status to other drugs, medicaments and biological substances; Z91.048 Other nonmedicinal substance allergy status; Z68.23 Body mass index [BMI] 23.0-23.9, adult
CPT/HCPCS: 36415; 51700; 71045; 74019; 74022; 74176; 80048; 80053; 81001; 82150; 82550; 82553; 82607; 82728; 83540; 83605; 83690; 84443; 84466; 84484; 85025; 85045; 85610; 85730; 87071; 87075; 87186; 87205; 88307; 93005; 97139; 99284; J0360; J0694; J1170; J1756; J1885; J2250; J2270; J2405; J2543; J2765; J3010; J3480; J7030; J7121; Q9967

== ENCOUNTER → 2020-01-31 | Day surgery (SDC) | payer OTHER ==
[2020-01-25 18:15] LABS: BASOPHILS # (AUTO) 0.1 (0.0-0.1); BASOPHILS % 1.7 % (0.0-1.0); EOSINOPHILS # (AUTO) 0.2 (0.0-0.4); EOSINOPHILS % 3.6 % (0.0-6.0); HEMATOCRIT 32.5 % (34.2-44.1); HEMOGLOBIN 10.2 g/dL (12.0-16.0); LYMPHOCYTES # (AUTO) 1.8 (1.0-3.2); LYMPHOCYTES % 34.5 % (18.0-39.1); MEAN CORPUSCULAR HEMOGLOBIN 29.2 pg (28-32); MEAN CORPUSCULAR HGB CONC 31.4 g/dL (31-35); MEAN CORPUSCULAR VOLUME 93.1 fL (81-99); MONOCYTES # (AUTO) 0.6 (0.2-0.8); MONOCYTES % 10.7 % (4.4-11.3); NEUTROPHILS # (AUTO) 2.6 (2.1-6.9); NEUTROPHILS % 49.3 % (38.7-80.0); PLATELET COUNT 265 x10e3/uL (140-360); RED BLOOD COUNT 3.49 x10e6/uL (3.6-5.1)
[2020-01-25 18:36] LABS: ALBUMIN 3.6 g/dL (3.5-5.0); ALBUMIN/GLOBULIN RATIO 0.9 (0.8-2.0); ANION GAP 9.5 mmol/L (8-16); CALCIUM 8.7 mg/dL (8.4-10.2); CREATININE, SERUM 1.03 mg/dL (0.57-1.11); POTASSIUM 4.5 mmol/L (3.5-5.1)
[2020-01-25 18:50] LABS: CHOL/HDL RATIO 2.1 (3.0-3.6)
[2020-01-25 19:10] LABS: THYROID STIMULATING HORMONE 1.832 uIU/mL (0.350-4.940)
--- NOTE | 2020-01-25 19:22 | Diagnostic Imaging Report ---
EXAMINATION: CHEST 2 VIEWS INDICATION: ^PREOP FOR LEFT HEART CATHETERIZATION ^[id number] ^[id number] COMPARISON: 09/06/2019 FINDINGS: PA and lateral views TUBES and LINES: None. LUNGS: Lungs are well inflated. There is mild perihilar interstital opacities, consistent with interstitial edema. PLEURA: No pleural effusion or pneumothorax. HEART AND MEDIASTINUM: The cardiomediastinal silhouette is unremarkable. BONES AND SOFT TISSUES: No acute osseous lesion. Soft tissues are unremarkable. UPPER ABDOMEN: No free air under the diaphragm. IMPRESSION: Mild interstitial edema Signed by: Sourav Cooley MD on 01/25/2020 7:20 PM
--- NOTE | 2020-01-27 16:30 | NUR ---
At approximately 1525 Dr. Baeza notified of Chest x-ray results: mild interstitial Edema. Dr. Baeza requested to have lab results and chest x ray results faxed to his office at [phone]. At 1531 Attempted to fax Lab results and Chest x-ray results. Error message stating line was "Busy". At 1626, attempted to fax lab reports amd chest x-ray results again. Result Message "OK".
--- NOTE | 2020-01-29 01:46 | Pre Op History & Physical ---
The patient will be presenting on January 31, 2020, for cardiac catheterization with possible intervention. HISTORY OF PRESENT ILLNESS: A 64-year-old lady, known with hypertension, hyperlipidemia, diabetes mellitus, severe gastritis and ulcer and repeated necrotic bowel problems. The patient also known to have hematuria and other medical health problems. In August 2018, she had emergency surgery for necrotic bowel. Again, this problem recurred in August 2019 and she had surgery. The patient is seen and evaluated and she was sent to our service for an evaluation of major abdominal vascular surgery at [facility]. The patient in need for cardiac clearance. The patient is known to have abnormal nuclear stress test dated back to August 2019, treated medically because of her severe GI issue and GI symptoms. Her symptoms are class III shortness of breath on exertion, chest tightness, chest pressure, relieved by rest. Her activities are improving since her latest surgery. Really truly, her major problem is her GI issue. She still continues to have more than 10 bouts of loose bowel movements and diarrhea. She is on multiple medical therapy. The patient is really quite symptomatic from her GI issues. She used to have severe diabetes with her 2 necrotic bowel surgeries and so she lost 100 pounds and she is not on any medication now for her diabetes. CURRENT MEDICATIONS: Lovastatin 20 mg a day, atenolol 25 mg twice a day, lisinopril 40 mg a day, amlodipine 5 mg a day, dicyclomine 20 mg q.i.d., colestipol 1 g four tablets twice a day, Carafate 1 g q.i.d., ondansetron 8 mg p.r.n., Pepcid 20 mg twice a day. ALLERGIES: LIPITOR. PAST MEDICAL HISTORY: 1. Diabetes mellitus, now diet controlled. She has lost quite a lot of weight in the last couple of years or so. 2. Hypertension. 3. Chronic renal disease with proteinuria. 4. History of Crohn disease and necrotic bowel twice with surgery in August 2018 and August 2019, in need for more surgery. 5. History of major hematuria in 2018. SOCIAL HISTORY: She is a nonsmoker. She was smoking a few years back. She is single. She is non-alcohol drinker. FAMILY HISTORY: Father at age 65 with complication of alcoholism. Mother in her 70s with kidney and liver disease. She was also diabetic. No children. Six siblings, 2 brothers already had open-heart surgery. REVIEW OF SYSTEMS: GENERAL: No fever, no chills. Barely maintaining her weight. She lost quite a lot of weight, but recently she is trying to stabilize her weight. HEENT: No vision problem. No hearing problem. CARDIAC: As per above. PULMONARY: As per above. GI: Quite a lot of symptoms including GERD, nausea, vomiting, diarrhea, and a very abnormal pattern of bowel movement. HEMATOLOGY: Easy bruising, but no bleeding. NEUROLOGY: No seizure activity. No localized weakness. PHYSICAL EXAMINATION: VITAL SIGNS: Height of 5 feet 3 inches, weight of 114 pounds. Blood pressure 120/80, heart rate of 60, respiratory rate of 18. HEENT: Pupils are reactive. NECK: No elevation of jugular venous pulsation. No bruit. CHEST: Clear to auscultation and percussion. HEART: PMI in 5th left intercostal space. Normal first and second heart sounds with ejection systolic murmur. ABDOMEN: Soft. Multiple scars. EXTREMITIES: No cyanosis, no clubbing, no edema. IMPRESSION AND PLAN: 1. Coronary artery disease with abnormal nuclear stress test dated 08/31/2019. The patient treated medically. 2. Coronary artery disease with stable angina. 3. Hypertension. 4. Diabetes mellitus, diet controlled. 5. Aortic valve disease with calcified valve and moderate aortic stenosis with mean gradient of 20 mmHg, valve area of 1.3 sq cm. 6. Hypertension. 7. Hypercholesteremia. 8. Problem with her gastrointestinal tract and she is in need of major vascular abdominal surgery. The patient will be presenting for cardiac catheterization with possible intervention. Procedure risks, benefits, and alternatives are discussed and explained. MD NEEL Lopez/MODL /[id number]
[2020-01-31] VITALS (13 sets, daily range): BP systolic 136–177; BP diastolic 48–65
[~2020-01-31] VITALS: Ht 161.3 cm; Wt 66.7 kg
[~2020-01-31] MED LIST changes: +FENTANYL CITRATE/PF 100MCG/2 ML INJ ONE; +FERROCITE PLUS1 EACH PO; +HEPARIN SOD (PORCINE) 1000 UNIT/ML 30ML ONE; +HEPARIN SOD/SOD CHLORIDE 2,000 ML ONE; +IOPAMIDOL 370 MG/ML 200 ML INFUS..BTL INJ ONE; +LIDOCAINE HCL 2% LOCAL 20 ML VIAL ONE; +MIDAZOLAM HCL 2 MG/2 ML VIAL ONE; +NITROGLYCERIN/D5W 200 MCG/ML 0 ML ONE; +OMEGA-3 KRILL1 EACH PO; +SODIUM CHLORIDE 0.9% 1000ML 1,000 ML ONE; +SUCRALFATE1 GM PO; +VITAMIN B COMPLEX SL; +VITAMIN D3 PO; +VITAMIN E400 UNIT PO
--- OUTSIDE RECORDS SUMMARY | 2020-01-31 07:08 | XMS REPORT | Summary of Care ---
Author Author [facility] Organization [facility] Address Unknown Phone Unavailable Care Team Providers Care Mechanical Oxidizer Name Role Phone PCP Unavailable Reason for Referral * Consult, Test & Treat (Routine) Referred By Contact Referred To Contact Status Reason Specialty Diagnoses / Procedures Arun Tobias MD [address] [place] [id number] Toño Smith MD [address] [facility] [address], [place] [address] Pending Consult, Test, and Urology Diagnoses Treat Hematuria, unspecified type Consult, Test, and Treat referred by Dr. Tobias; Hematuria, unspecified type P rocedures SC OFFICE OUTPATIENT NEW 30 MINUTES Reason for Visit * Reason Comments Initial Visit Encounter Details Care Team Description Date Type Department Arun Tobias MD [address] [place] [id number] Initial Visit 01/19/2020 Office Visit [facility] Vascular Surgery [facility] 6th Floor, [address] [place] [address] Allergies Comments Active Allergy Reactions Severity Noted Date Atorvastatin Calcium 01/21/2020 documented as of this encounter (statuses as of 01/21/2020) Medications No known medicationsdocumented as of this encounter (statuses as of 01/21/2020) Active Problems No known active problemsdocumented as of this encounter (statuses as of 01/21/2020) Social History Date Tobacco Use Types Packs/Day Years Used Quit: 06/2018 Former Smoker Smokeless Tobacco: Never Used Drinks/Week oz/Week Comments Alcohol Use Not Currently Sex Assigned at Date Recorded Not on file Industry Job Start Date Occupation Not on file Not on file Not on file Travel End Travel History Travel Start No recent travel history available. documented as of this encounter Last Filed Vital Signs Reading Time Taken Comments Vital Sign 182/66 01/19/2020 1:44 PM WOOD REPATCHER Blood Pressure 72 01/19/2020 1:44 PM WOOD REPATCHER Pulse - - Temperature - - Respiratory Rate - - Oxygen Saturation - - Inhaled Oxygen Concentration 64.4 kg (142 lb) 01/19/2020 1:44 PM WOOD REPATCHER Weight 160 cm (5' 3") 01/19/2020 1:44 PM WOOD REPATCHER Height 25.15 01/19/2020 1:44 PM WOOD REPATCHER Body Mass Index documented in this encounter Patient Instructions * Patient Instructions* [place] CMA - 01/19/2020 2:47 PM WOOD REPATCHER Thank you for choosing [facility]. You may receive a survey in the mail. Please provide comments to let us know how we can improve our patient care. Instructions for your care: Patient will follow up in 2 weeks with referral to Urology Dr Toño Tobias MD [employer] transportation project manager Division of Vascular Surgery and Endovascular Therapy If you have any questions, please feel free to call us at: REPATCHER documented in this encounter Progress Notes * Darrick Velazquez - 01/19/2020 2:00 PM WOOD REPATCHER Division of Vascular Surgery & Endovascular Therapy Miko Smith Department of Surgery [facility], [place], [place] HISTORY & PHYSICAL EXAM FOR OUTPATIENT NEW VISIT FOR EVALUATION OF ABDOMINAL PAIN DUE TO MESENTERIC ISCHEMIA DATE OF VISIT: January 19, 2020 PATIENT NAME: Grace Church : 1955; AGE: 64 y.o.; Sex:F PHONE NUMBER: ; (Work); ; #: [id number] PHYSICIAN: Jeanmarie Velazquez NP PRIMARY CARE / REFERRING PHYSICIAN: Seven Walton / No primary care prov ider on file. / No primary physician on file. / REASON FOR EVALUATION / CHIEF COMPLAINT: EVALUATION AND TREATMENT OF MESENTERIC ISCHEMIA HISTORY OF PRESENT ILLNESS: Grace Church is a 64 y.o. female patient with PMH of anemia, HTN and Type II DM who presents for evaluation and treatment of abdo kelly pain and weight loss which has been persistent for the past 2 years. The p atient was referred here by her surgeon, Dr. Walton, in [place]. Patient sta chip in August of 2018 she had ex lap for removal of ischemic bowel and gall danyel dder removal and later in August 2019 she had to have abdominal surgery for per forated bowel. During a routine CT scan she was told that she had occlusion of t he arteries to her bowels and therefore was referred to vascular surgery. Overal l since the onset of the abdominal symptoms, the patient reports her abdominal p ain condition has waxed and waned but are better overall. The patient reports th at her abdominal symptoms has affected her lifestyle and her ability to perform her daily routine or job. The patient's risk factors for atherosclerotic occlusi ve disease include: dyslipidemia, diabetes mellitus and hypertension. The patien t has not prior endovascular intervention of her mesenteric artery. 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 The patient was referred for a vas cular surgery consultation to further evaluate and treat the abdominal symptoms due to possible mesenteric ischemia. PAST SURGICAL HISTORY: The patient's has no past surgical history on file. PAST MEDICAL HISTORY: The patient has no past medical history on file. FAMILY HISTORY: The patient's family history is not on file. CURRENT MEDICATIONS: No outpatient medications prior to visit. No facility-administered medications prior to visit. Allergies not on file SOCIAL HISTORY: reports that she quit smoking about 18 months ago. She has neve r used smokeless tobacco. She reports previous alcohol use. She reports that she does not use drugs. FAMILY HISTORY: family history is not on file. REVIEW OF SYSTEMS: General: negative for - night sweats, sleep disturbance, weight gain or weight l oss Psychological: negative for - anxiety, memory difficulties, mood swings or sleep disturbances Ophthalmic: negative for - decreased vision, double vision or loss of vision ENT: negative for - headaches, nasal congestion, oral lesions, sinus pain, visua l changes, earache, ear discharge, or tinnitus. Neck: negative for - neck pain, neck stiffness, swollen gland, or thyroid enlarg ement. Endocrine: negative for - Malaise/lethargy, polyurea Breast: negative for - galactorrhea, nipple changes or nipple discharge, Respiratory: no cough, shortness of breath, wheezing, dyspnea, sputum production , or hemoptysis. Cardiovascular: no chest pain, orthopnea, heart murmur, or dyspnea on exertion Gastrointestinal: positive for abdominal pain, change in bowel habits. Negative for jaundice, constipation, or black or bloody stools Genito-Urinary: no dysuria, trouble voiding, or hematuria Musculoskeletal: negative for - joint stiffness, joint swelling or bone pain Neurological: negative for - behavioral changes, headaches, impaired coordinatio n, loss of balance, tingling sensation, dizziness, seizure, memory loss or weakn ess Dermatological: negative for - mole changes, nail changes, skin lesion changes, or skin discoloration. Hematological and Lymphatic: negative for - bleeding problems, blood clots, brui sing, fatigue, swollen lymph nodes or history of anemia. Endocrine: negative for thyroid disease, heat or cold intolerance, polyuria, or polydipsia Psychiatric: negative for depression, sleep disturbance, suicidal ideation, anxi ety disorder, or history of hallucinations VITAL SIGNS: BP 182/66 | Pulse 72 | Ht 5' 3" (1.6 m) | Wt 142 lb (64.4 kg) | BMI 25.15 kg/m . PHYSICAL EXAM: Constitutional: Well nourished, no signs of distress HENT: Non icteric sclerae, oropharynx clear. Normocephalic and atraumatic. Cran ial nerves II-XI are grossly intact. Pupils are equally reactive to light. Ext raocular motor intact. Lymphadenopathy: She has no cervical, supraclavicular or axillary adenopathy, Cardiovascular: Normal rate, regular rhythm and normal heart sounds. No murmurs , rubs or gallops Pulmonary/Chest: Breath sounds normal. No respiratory distress. No adventitious sounds. Abdominal: Soft. Noabdominal distension. No abdominal tenderness. No organomegal y. No abdominal pulsatile mass noted. Musculoskeletal: Normal range of motion. No evidence of arthritis. Extremities: No edema, cyanosis or clubbing. Neurological: She is alert and oriented. No muscle weakness and normal gait. VASCULAR: Palpable femoral pulses were present bilaterally with palpable poplit eal, dorsalis pedis and posterior tibial artery pulse. No femoral or abdominal pulsatile mass noted. 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 Lewis, rosa yan metal casket maker in [place]. The patient did have an episode of urinary tract ble eding while having a cardiac catherization and therefore we will have her follow up with urology for evaluation. We will also obtain CTA study from [facility]. Once this has been completed we will bring in patient and discuss options for treatment and management. Total duration of this clinic visit was 60 minutes, during which more than 30 mi nutes was devoted to counseling and coordination of care. (CPT code: 36712) MARJAN Sexton-Josias Department of Surgery Division of Vascular Surgery REPATCHER * Arun Tobias MD - 01/19/2020 2:00 PM WOOD REPATCHER Ms Church is a 64 yo female with chronic mesenteric ischemia, with significan t weight loss over the past two years from 212 to 99 lbs. She has had to underg o emergent bowel resection for intestinal ischemia in 08/2018, and a x-lap for b owel perforation last year, with cholecystectomy that time. She denies any jin dication or rest pain, or lower extremity ulceration. (+) stress test, but no c urrent symptoms. She did have a bout of acute CHF exacerbation last year, requi ring emergent admission, diuretic therapy. Her course has also been complicated by urinary tract bleeding, (one episode) that has required her to be off of asa or plavix. She is currently not on any antiplatelet or anticoagulant therapy. Rec: 1) F/u with Dr. Lewis (cardiology) in [facility] 2) Obtain CTA from [facility] [place] 3) F/u with urology to evaluate for bleeding. Pt currently still having food fear and chronic abdominal pain. Review of some of the non-contrast images that were sent over revealed a coral reef covering the ostia of the donell iac and the sma, with extensive calcifications of the entire infrarenal aorta an d bilateral iliacs, and suprarenally. F/u in 2-3 weeks. REPATCHER documented in this encounter Plan of Treatment Care Team Description Date Type Specialty Link, Toño Garcia MD [address] [facility] [address], [place] [address] 02/14/2020 Office Visit Urology Order Schedule Name Type Priority Associated Diagnoses Ordered: 01/19/2020 AMB REF TO UROLOGY [facility] Outpatient Routine Hematuria, unspecified Referral type Health Maintenance Due Date Last Done Comments COLON CANCER SCREENIN1957 COLONOSCOPY MAMMOGRAM ANNUAL 1955 TETANUS SHOT (ADULT) 1972 BMI FOLLOW UP PLAN 1975 HEPATITIS C SCREENING 1975 HIV SCREENING 1975 CERVICAL CANCER SCREENING 1978 3 YEAR FOLLOW UP FLU VACCINE > 6 MONTHS 06/24/2019 documented as of this encounter Results Not on filedocumented in this encounter Visit Diagnoses Diagnosis Hematuria, unspecified type - Primary Abdominal pain, unspecified abdominal location documented in this encounter Insurance Type Payer Benefit Subscriber ID Effective Phone Address Plan / Dates Group PPO [employer] [facility] OPEN xxxxxxxxx 2019-P [address] ACCESS resent [id number] PLUS - [place] [id number] documented as of this encounter
[2020-01-31] MEDS: DIPHENHYDRAMINE HCL INJ 50 MG/ML VIAL ONE (07:40)
[2020-01-31] MEDS: CLONIDINE HCL 0.1 MG TAB ONE (10:21)
--- NOTE | 2020-01-31 11:45 | NUR ---
Patient straight cathed as ordered. Patient void approximately 950ml clear yellow urine. Patient appears to have tolerated well. Patient awake,alert, and orientedx3. Respirations even and unlabored on room air. No distress noted at this time. Patient continues to lay flat. Bilateral groin dressings are dry and intact. Call light within reach. Stretcher in low and locked position with siderails elevatedx2.
--- NOTE | 2020-01-31 13:47 | Operative Report ---
DATE OF PROCEDURE: SURGEON: Jo Ann Baeza MD TITLE OF THE PROCEDURES: 1. Left cardiac catheterization. 2. Abdominal angiogram. INDICATIONS: Angina, CHF, aortic stenosis, peripheral arterial-vascular disease. TECHNICAL DETAILS: After the usual sterile preparation and draping procedure, intravenous Versed and fentanyl given for sedation, local xylocaine for anesthesia. A 4-Syriac sheath was established in the right common femoral artery. The wire was advanced at the common iliac level. Angiogram showed 99% blockage with severely calcified valve. Access was obtained on the left common femoral, Evelio left 4 and 3DRC catheters to engage the coronary, pigtail for hemodynamic measurement and left ventriculogram. Then subsequently a tennis racquet was placed in the abdominal aorta using digital subtraction technique and abdominal angiogram was done. The patient tolerated the procedure. Sheaths were removed manually. There were no complication and the patient tolerated the procedures. RESULTS: A. Coronary angiogram: 1. Left main, 20% ostial disease. 2. LAD, 30% ostial followed at 95% heavily calcified lesion at origin of sizable diagonal, several plaques at 50% with heavy calcification. 3. Circumflex coronary artery, codominant circulation giving also PDA from that artery with 30% lesion. 4. Right coronary artery, 70% mid RCA lesion, codominant circulation. a. Hemodynamic: Aorta pressure 172/62, LV pressure 185/30 with gradient across the aortic valve of 30 mmHg. Left ventriculogram in the right anterior oblique view showed akinetic anterior and apical segment with an ejection fraction of 35%. Other finding, calcified aorta. Abdominal angiogram, heavily calcified abdominal aorta, complex 99% to very calcified right common iliac disease, gradient of 80 mm between the abdominal aorta and the right common femoral. Minimal plaquing in the left system. IMPRESSION: 1. Two-vessel coronary artery disease. 2. Left ventricular dysfunction with an ejection fraction of 35%. 3. A gradient of 13 mmHg across the aortic valve. 4. Severe peripheral vascular disease with heavily calcified aorta complex, subtotal right common iliac disease. RECOMMENDATIONS: Evaluation of the findings with the patient, her vascular surgeon, and formulating a plan, very complex case, potential for high complication for intervention. COMPLICATIONS: None. BLOOD LOSS: None. MD NEEL Lopez/RODRIGOL /[id number]
--- NOTE | 2020-01-31 13:50 | NUR ---
Patient ambulated to restroom with standby assistance and void without difficulty. Patient ambulated back to ACU bay 9. No distress noted. Bilateral groin dressings assessed: clean,dry, and intact. Right groin soft upon palpation and patient checked right groin area and reported soft upon palpation. Patient palpated left groin and reported "slight pain when pressed down" on medial aspect of left thigh. Left groin palpated by myself and felt slightly firm and patient stated she felt pain when palpated. Rechecked around area of left groin and area no longer felt firm and patient denied any pain. Patient palpated left groin and stated she did not have any pain and site was not firm. Patient encouraged to monitor area and to contact physician if firmness reoccurs. Patient verbalized understanding. IV to left hand removed and dressing placed per unit protocol. Dressing to left hand is clean,dry, and intact. Patient discharged unit via wheelchair with patient's sister Cassi Serrano as cement mixer driver. Patient discharged with belongings. No distress noted at time of discharge.
== END | disposition home or self-care (01) ==
LOC: CATH LAB 07:06
PROVIDERS: ATTEND Internal Medicine Cardiovascular Disease
DX: I25.118 Atherosclerotic heart disease of native coronary artery with other forms of angina pectoris (principal); I70.291 Other atherosclerosis of native arteries of extremities, right leg; R94.39 Abnormal result of other cardiovascular function study; I35.0 Nonrheumatic aortic (valve) stenosis; E78.00 Pure hypercholesterolemia, unspecified; K92.9 Disease of digestive system, unspecified; E11.22 Type 2 diabetes mellitus with diabetic chronic kidney disease; I13.0 Hypertensive heart and chronic kidney disease with heart failure and stage 1 through stage 4 chronic kidney disease, or unspecified chronic kidney disease; N18.9 Chronic kidney disease, unspecified; I50.9 Heart failure, unspecified; R80.9 Proteinuria, unspecified; Z01.812 Encounter for preprocedural laboratory examination; Z01.818 Encounter for other preprocedural examination; Z82.49 Family history of ischemic heart disease and other diseases of the circulatory system
CPT/HCPCS: 36415; 71046; 75625; 80053; 80061; 84443; 85025; 93458; C1766; C1769; C1887; J1200; J2001; J2250; J3010; J7030; Q9967; 99152; 99153; J1644